=== PATIENT | female | born 1940 | race Caucasian/White ===

== ENCOUNTER 2016-11-21 04:31 | Inpatient (IN) ==
[2016-11-21] MEDS ORDERED: methylPREDNISolone 125 MG/2 ML VIAL ONE (04:35)
[2016-11-21] MEDS ORDERED: Ipratropium/Albuterol Neb 3 ML ONE (04:37)
[2016-11-21] MEDS ORDERED: Ipratropium/Albuterol Neb 3 ML IH ONE (04:38)
[2016-11-21] MEDS ORDERED: Nitroglycerin 25 MG/250 ML INFUS..BTL IVC ONE (04:38)
[2016-11-21] MEDS ORDERED: Furosemide 40 MG/4 ML VIAL IVP ONE (04:38)
[2016-11-21] MEDS ORDERED: Nitroglycerin 0.4 MG TAB.SUBL SL ONE (04:38)
[2016-11-21] MEDS ORDERED: methylPREDNISolone 125 MG/2 ML VIAL IVP ONE (04:38)
[2016-11-21] MEDS: Nitroglycerin 25 MG/250 ML INFUS..BTL IVC SCH (04:46)
[2016-11-21 04:53] LABS: Basophils # 0.1 K/mcL (0.0-0.2); Basophils % 0.6 %; Eosinophils # 1.3 K/mcL (0.0-0.6); Hematocrit 44.2 % (35.3-44.9); Hemoglobin 14.8 g/dL (11.5-15.4); Immature Granulocytes % 0.4 % (0-4); Lymphocytes # 10.4 K/mcL (0.6-4.6); Lymphocytes % 46.6 %; Mean Corpuscular HGB Conc 33.5 g/dL (31.6-35.5); Mean Corpuscular Hemoglobin 32.6 pg (28.0-33.3); Mean Corpuscular Volume 97.4 fL (83.0-100.0); Mean Platelet Volume 10.8 fL (9.4-12.4); Monocytes # 1.3 K/mcL (0.0-1.3); Monocytes % 5.8 %; Platelet Count 275 K/mcL (140-400); Red Blood Count 4.54 M/mcL (3.82-4.97); Red Cell Distribution Width 12.6 % (11.5-14.5); Segmented Neutrophils % 40.6 %
[2016-11-21 04:59] LABS: INR 1.1; Prothrombin Time 11.6 Seconds (9.4-12.1)
[2016-11-21 05:01] LABS: Activated Partial Thrombo Time 27.6 Seconds (26.0-36.0)
[2016-11-21 05:07] LABS: Calcium 9.4 mg/dL (8.6-10.8); Potassium 4.6 mEq/L (3.5-4.5)
[2016-11-21 05:24] LABS: ABG Base Excess -5.5 mEq/L (-2.0 to 3.0); ABG HCO3 21.6 mEQ/L (21-27); ABG Oxygen Saturation 100 % (95-98); ABG PCO2 47 mmHg (35-45); ABG PH 7.27 pH Units (7.32-7.45); ABG PO2 292 mmHg (85-104)
[2016-11-21 05:26] LABS: Blood Gas FiO2 40 %
[2016-11-21] MEDS ORDERED: Levofloxacin 750 MG/150 ML 750 MG/150 ML BAG IVPB ONE (05:26)
[2016-11-21] MEDS ORDERED: Vancomycin 1,000 MG in D5% in Water 250 ML IVPB ONE (05:26)
[2016-11-21] MEDS ORDERED: Piperacillin/Tazobactam 3.375 GM in D5% in Water (Mini-Bag+) 100 ML IVPB ONE (05:26)
--- NOTE | 2016-11-21 05:26 | Emergency Department Note ---
Disposition Clinical Impression: Pneumonia Qualifiers: Pneumonia type: due to unspecified organism Laterality: bilateral Lung location : lower lobe of lung Qualified Code(s): J18.9 - Pneumonia, unspecified organism Congestive heart failure Qualifiers: Congestive heart failure type: unspecified congestive heart failure type Congestive heart failure chronicity: acute on chronic Qualified Code(s): I50.9 - Heart failure, unspecified Disposition: Admitted As Inpatient Condition: Serious General Adult HPI - General Chief complaint: ED Shortness of Breath/Dyspnea Stated complaint: TYLER Time Seen by Provider: 11/21/16 04:49 Source: EMS Limitations: other Nursing Notes Reviewed: Yes Vital Signs Reviewed: Yes - History of Present Illness Pain Scale: 0 - Related Data Home Medications Medication Instructions Recorded Confirmed BuPROPion [Wellbutrin] 100 mg PO BID 09/20/15 11/21/16 Lisinopril [Zestril] 10 mg PO DAILY 09/20/15 11/21/16 Montelukast [Singulair] 10 mg PO HS 09/20/15 11/21/16 Ropinirole HCl [Requip] 2 mg PO TID 09/20/15 11/21/16 Simvastatin [Zocor] 20 mg PO HS 09/20/15 11/21/16 Albuterol Sulfate [Ventolin Hfa] 1 - 2 puff IH Q4-6H PRN 10/17/15 11/21/16 Oxygen 2 l NS AD 10/17/15 11/21/16 Loratadine [Claritin] 10 mg PO DAILY #0 10/27/15 11/21/16 Aspirin 81 mg PO DAILY 03/10/16 11/21/16 Cholecalciferol (D-3) [Vitamin D] 1,000 unit PO DAILY 03/10/16 11/21/16 Omeprazole [PriLOSEC] 40 mg PO DAILY 05/20/16 11/21/16 Budesonide/Formoterol 160/4.5 2 puff IH BIDR 11/21/16 11/21/16 [Symbicort 160/4.5] Previous Rx's Medication Instructions Recorded ClonazePAM [Klonopin] 0.25 mg PO BID #14 tablet 11/03/15 Ipratropium/Albuterol Neb [Duoneb] 3 ml IH [id number] #60 inhsol 11/03/15 Furosemide [Lasix] 20 mg PO DAILY #30 tablet 03/17/16 Potassium Chloride [K-Tab ER] 20 meq PO DAILY #30 tablet.er 03/17/16 Allergies Allergy/AdvReac Type Severity Reaction Status Date / Time No Known Allergies Allergy Verified 10/27/15 19:21 Past Medical History - Past Medical History Medical history: Reports: asthma, cancer, GERD, hyperlipidemia, hypertension Surgical history: Reports: , cholecystectomy, knee replacement, orthopedic, other, other Psychiatric history: Reports: anxiety, panic disorder - Social History Smoking Status: Never smoker Smokeless Tobacco Status: No Alcohol use: Reports: none Drug use: Reports: none Physical Exam - General Limitations: other General appearance: obese Course - Reevaluation(s) Reevaluation #1: Patient's granddaughter at bedside and patient is able to speak in full sentences at this time. Patient's granddaughter states that the patient has been diagnosed with CHF recently. The patient is stating she has been taking "fluid pills." She is unaware of the dose. She thinks that this is Lasix after I stated name. Her mentation is significantly improved at this time. She states that she is no longer short of breath. She is tolerating the BiPAP well at this time. She states if need be to be intubated that she would be okay with that as long as was a short-term ventilator stay. I discussed admission with them and they are agreeable. Patient has an elevated white blood cell count and a right sided lower pneumonia. We started her on triple antibiotic therapy. Patient meets sepsis criteria. We will not be giving her a fluid bolus due to her fluid status :overload. Time: 05:36 Vital Signs Temperature 99.0 F 11/21/16 04:33 Pulse Rate 118 11/21/16 04:33 Respiratory Rate 30 11/21/16 04:33 Blood Pressure 176/116 11/21/16 04:33 O2 Sat by Pulse Oximetry 96 11/21/16 04:33 Temperature 97.6 F 11/21/16 16:57 Pulse Rate 88 11/21/16 16:57 Respiratory Rate 16 11/21/16 16:57 Blood Pressure 118/71 11/21/16 16:57 O2 Sat by Pulse Oximetry 94 11/21/16 16:57 Oxygen Delivery Oxygen Delivery Bipap Medical Decision Making - Medical Records Medical records reviewed: Yes I reviewed the patient's medical records. - Lab Data Lab results reviewed: Yes I reviewed the patient's lab results. Result diagrams: 11/21/16 04:41 11/21/16 04:41 Lab Results 11/21/16 11/21/16 11/21/16 Range/Units 04:41 04:41 04:41 WBC 22.3 H (4.3-11.1) K/mcL RBC 4.54 (3.82-4.97) M/mcL Hgb 14.8 (11.5-15.4) g/dL Hct 44.2 (35.3-44.9) % MCV 97.4 (83.0-100.0) fL MCH 32.6 (28.0-33.3) pg MCHC 33.5 (31.6-35.5) g/dL RDW 12.6 (11.5-14.5) % Plt Count 275 (140-400) K/mcL MPV 10.8 (9.4-12.4) fL Immature Gran % 0.4 (0-4) % Seg Neutrophils % 40.6 % Lymphocytes % 46.6 % Monocytes % 5.8 % Eosinophils % 6.0 % Basophils % 0.6 % Neutrophils # 9.0 H (1.6-8.9) K/mcL Lymphocytes # 10.4 H (0.6-4.6) K/mcL Monocytes # 1.3 (0.0-1.3) K/mcL Eosinophils # 1.3 H (0.0-0.6) K/mcL Basophils # 0.1 (0.0-0.2) K/mcL PT 11.6 (9.4-12.1) Seconds INR 1.1 APTT 27.6 (26.0-36.0) Seconds ABG pH (7.32-7.45) pH Units ABG pCO2 (35-45) mmHg ABG pO2 (85-104) mmHg ABG HCO3 (21-27) mEQ/L ABG Total CO2 (20-26) mEq/L ABG O2 Saturation (95-98) % ABG Base Excess (-2.0 to 3.0) mEq/L Blood Gas Modality Inspired O2 % Sodium 138 (136-145) mEq/L Potassium 4.6 H (3.5-4.5) mEq/L Chloride 103 (98-109) mEq/L Carbon Dioxide 20 (19-29) mEq/L BUN 17 (7-20) mg/dL Creatinine 1.19 H (0.57-1.11) mg/dL Est GFR ( Amer) 53 L (> 60) Est GFR (Non-Af Amer) 44 L (> 60) BUN/Creatinine Ratio 14 (6-26) Glucose 268 H (70-99) mg/dL Calculated Osmolality 297 (280-300) Lactic Acid (0.5-2.2) mmol/L Calcium 9.4 (8.6-10.8) mg/dL Total Bilirubin 1.0 (0.2-1.2) mg/dL Direct Bilirubin 0.4 (0.0-0.5) mg/dL Indirect Bilirubin 0.6 (0.0-1.2) mg/dL AST 39 H (5-34) Units/L ALT 28 (0-55) Units/L Alkaline Phosphatase 95 (38-126) Units/L Troponin I (0-0.03) ng/mL B-Natriuretic Peptide (0-100) pg/mL Serum Total Protein 6.9 (6.0-8.3) g/dL Albumin 3.8 (3.5-5.0) g/dL Globulin 3.1 (2.4-3.5) g/dL Albumin/Globulin Ratio 1.2 (1.1-2.2) Urine Color (Yellow) Urine Clarity (Clear) Urine pH (5.0-8.0) pH Units Ur Specific [place] (1.010-1.025) Urine Protein (Neg-Trace) mg/dL Urine Glucose (UA) (Normal) mg/dL Urine Ketones (Negative) mg/dL Urine Blood (Negative) Urine Nitrite (Negative) Urine Bilirubin (Negative) Urine Urobilinogen (Normal) mg/dL Ur Leukocyte Esterase (Negative) Urine Microscopic RBC (0-3) per hpf Urine Microscopic WBC (0-3) per hpf Ur Squamous Epith Cells (None-Few) per lpf Urine Bacteria (None-Few) per hpf Hyaline Casts (None-Few) per lpf Ur Culture Indicated? (NO) 11/21/16 11/21/16 11/21/16 Range/Units 04:41 04:41 04:41 WBC (4.3-11.1) K/mcL RBC (3.82-4.97) M/mcL Hgb (11.5-15.4) g/dL Hct (35.3-44.9) % MCV (83.0-100.0) fL MCH (28.0-33.3) pg MCHC (31.6-35.5) g/dL RDW (11.5-14.5) % Plt Count (140-400) K/mcL MPV (9.4-12.4) fL Immature Gran % (0-4) % Seg Neutrophils % % Lymphocytes % % Monocytes % % Eosinophils % % Basophils % % Neutrophils # (1.6-8.9) K/mcL Lymphocytes # (0.6-4.6) K/mcL Monocytes # (0.0-1.3) K/mcL Eosinophils # (0.0-0.6) K/mcL Basophils # (0.0-0.2) K/mcL PT (9.4-12.1) Seconds INR APTT (26.0-36.0) Seconds ABG pH (7.32-7.45) pH Units ABG pCO2 (35-45) mmHg ABG pO2 (85-104) mmHg ABG HCO3 (21-27) mEQ/L ABG Total CO2 (20-26) mEq/L ABG O2 Saturation (95-98) % ABG Base Excess (-2.0 to 3.0) mEq/L Blood Gas Modality Inspired O2 % Sodium (136-145) mEq/L Potassium (3.5-4.5) mEq/L Chloride (98-109) mEq/L Carbon Dioxide (19-29) mEq/L BUN (7-20) mg/dL Creatinine (0.57-1.11) mg/dL Est GFR ( Amer) (> 60) Est GFR (Non-Af Amer) (> 60) BUN/Creatinine Ratio (6-26) Glucose (70-99) mg/dL Calculated Osmolality (280-300) Lactic Acid 5.6 H* (0.5-2.2) mmol/L Calcium (8.6-10.8) mg/dL Total Bilirubin (0.2-1.2) mg/dL Direct Bilirubin (0.0-0.5) mg/dL Indirect Bilirubin (0.0-1.2) mg/dL AST (5-34) Units/L ALT (0-55) Units/L Alkaline Phosphatase (38-126) Units/L Troponin I 0.00 (0-0.03) ng/mL B-Natriuretic Peptide 64 (0-100) pg/mL Serum Total Protein (6.0-8.3) g/dL Albumin (3.5-5.0) g/dL Globulin (2.4-3.5) g/dL Albumin/Globulin Ratio (1.1-2.2) Urine Color (Yellow) Urine Clarity (Clear) Urine pH (5.0-8.0) pH Units Ur Specific [place] (1.010-1.025) Urine Protein (Neg-Trace) mg/dL Urine Glucose (UA) (Normal) mg/dL Urine Ketones (Negative) mg/dL Urine Blood (Negative) Urine Nitrite (Negative) Urine Bilirubin (Negative) Urine Urobilinogen (Normal) mg/dL Ur Leukocyte Esterase (Negative) Urine Microscopic RBC (0-3) per hpf Urine Microscopic WBC (0-3) per hpf Ur Squamous Epith Cells (None-Few) per lpf Urine Bacteria (None-Few) per hpf Hyaline Casts (None-Few) per lpf Ur Culture Indicated? (NO) 11/21/16 11/21/16 11/21/16 Range/Units 05:15 05:40 07:28 WBC (4.3-11.1) K/mcL RBC (3.82-4.97) M/mcL Hgb (11.5-15.4) g/dL Hct (35.3-44.9) % MCV (83.0-100.0) fL MCH (28.0-33.3) pg MCHC (31.6-35.5) g/dL RDW (11.5-14.5) % Plt Count (140-400) K/mcL MPV (9.4-12.4) fL Immature Gran % (0-4) % Seg Neutrophils % % Lymphocytes % % Monocytes % % Eosinophils % % Basophils % % Neutrophils # (1.6-8.9) K/mcL Lymphocytes # (0.6-4.6) K/mcL Monocytes # (0.0-1.3) K/mcL Eosinophils # (0.0-0.6) K/mcL Basophils # (0.0-0.2) K/mcL PT (9.4-12.1) Seconds INR APTT (26.0-36.0) Seconds ABG pH 7.27 L (7.32-7.45) pH Units ABG pCO2 47 H (35-45) mmHg ABG pO2 292 H (85-104) mmHg ABG HCO3 21.6 (21-27) mEQ/L ABG Total CO2 23.0 (20-26) mEq/L ABG O2 Saturation 100 H (95-98) % ABG Base Excess -5.5 L (-2.0 to 3.0) mEq/L Blood Gas Modality BIPAP Inspired O2 40 % Sodium (136-145) mEq/L Potassium (3.5-4.5) mEq/L Chloride (98-109) mEq/L Carbon Dioxide (19-29) mEq/L BUN (7-20) mg/dL Creatinine (0.57-1.11) mg/dL Est GFR ( Amer) (> 60) Est GFR (Non-Af Amer) (> 60) BUN/Creatinine Ratio (6-26) Glucose (70-99) mg/dL Calculated Osmolality (280-300) Lactic Acid 1.4 (0.5-2.2) mmol/L Calcium (8.6-10.8) mg/dL Total Bilirubin (0.2-1.2) mg/dL Direct Bilirubin (0.0-0.5) mg/dL Indirect Bilirubin (0.0-1.2) mg/dL AST (5-34) Units/L ALT (0-55) Units/L Alkaline Phosphatase (38-126) Units/L Troponin I (0-0.03) ng/mL B-Natriuretic Peptide (0-100) pg/mL Serum Total Protein (6.0-8.3) g/dL Albumin (3.5-5.0) g/dL Globulin (2.4-3.5) g/dL Albumin/Globulin Ratio (1.1-2.2) Urine Color Yellow (Yellow) Urine Clarity Clear (Clear) Urine pH 6.0 (5.0-8.0) pH Units Ur Specific [place] 1.019 (1.010-1.025) Urine Protein 30 H (Neg-Trace) mg/dL Urine Glucose (UA) Normal (Normal) mg/dL Urine Ketones Negative (Negative) mg/dL Urine Blood Negative (Negative) Urine Nitrite Negative (Negative) Urine Bilirubin Negative (Negative) Urine Urobilinogen Normal (Normal) mg/dL Ur Leukocyte Esterase Negative (Negative) Urine Microscopic RBC 0-3 (0-3) per hpf Urine Microscopic WBC 0-3 (0-3) per hpf Ur Squamous Epith Cells Many H (None-Few) per lpf Urine Bacteria None Seen (None-Few) per hpf Hyaline Casts None Seen (None-Few) per lpf Ur Culture Indicated? NO (NO) 11/21/16 Range/Units 10:06 WBC (4.3-11.1) K/mcL RBC (3.82-4.97) M/mcL Hgb (11.5-15.4) g/dL Hct (35.3-44.9) % MCV (83.0-100.0) fL MCH (28.0-33.3) pg MCHC (31.6-35.5) g/dL RDW (11.5-14.5) % Plt Count (140-400) K/mcL MPV (9.4-12.4) fL Immature Gran % (0-4) % Seg Neutrophils % % Lymphocytes % % Monocytes % % Eosinophils % % Basophils % % Neutrophils # (1.6-8.9) K/mcL Lymphocytes # (0.6-4.6) K/mcL Monocytes # (0.0-1.3) K/mcL Eosinophils # (0.0-0.6) K/mcL Basophils # (0.0-0.2) K/mcL PT (9.4-12.1) Seconds INR APTT (26.0-36.0) Seconds ABG pH (7.32-7.45) pH Units ABG pCO2 (35-45) mmHg ABG pO2 (85-104) mmHg ABG HCO3 (21-27) mEQ/L ABG Total CO2 (20-26) mEq/L ABG O2 Saturation (95-98) % ABG Base Excess (-2.0 to 3.0) mEq/L Blood Gas Modality Inspired O2 % Sodium (136-145) mEq/L Potassium (3.5-4.5) mEq/L Chloride (98-109) mEq/L Carbon Dioxide (19-29) mEq/L BUN (7-20) mg/dL Creatinine (0.57-1.11) mg/dL Est GFR ( Amer) (> 60) Est GFR (Non-Af Amer) (> 60) BUN/Creatinine Ratio (6-26) Glucose (70-99) mg/dL Calculated Osmolality (280-300) Lactic Acid 1.7 (0.5-2.2) mmol/L Calcium (8.6-10.8) mg/dL Total Bilirubin (0.2-1.2) mg/dL Direct Bilirubin (0.0-0.5) mg/dL Indirect Bilirubin (0.0-1.2) mg/dL AST (5-34) Units/L ALT (0-55) Units/L Alkaline Phosphatase (38-126) Units/L Troponin I (0-0.03) ng/mL B-Natriuretic Peptide (0-100) pg/mL Serum Total Protein (6.0-8.3) g/dL Albumin (3.5-5.0) g/dL Globulin (2.4-3.5) g/dL Albumin/Globulin Ratio (1.1-2.2) Urine Color (Yellow) Urine Clarity (Clear) Urine pH (5.0-8.0) pH Units Ur Specific [place] (1.010-1.025) Urine Protein (Neg-Trace) mg/dL Urine Glucose (UA) (Normal) mg/dL Urine Ketones (Negative) mg/dL Urine Blood (Negative) Urine Nitrite (Negative) Urine Bilirubin (Negative) Urine Urobilinogen (Normal) mg/dL Ur Leukocyte Esterase (Negative) Urine Microscopic RBC (0-3) per hpf Urine Microscopic WBC (0-3) per hpf Ur Squamous Epith Cells (None-Few) per lpf Urine Bacteria (None-Few) per hpf Hyaline Casts (None-Few) per lpf Ur Culture Indicated? (NO) - Radiology Data Radiology results reviewed: Yes I reviewed the patient's radiology results. Chest X-Ray 11/21/16 04:38 IMPRESSION: Patchy parahilar airspace disease greater on the right. Given the normal heart size, this could represent early central pneumonia. Follow-up is recommended D/ / Dilan Workman MD / Dilan Workman MD Interpreting Provider: Dilan Workman MD - EKG Data EKG #1 EKG attestation: Yes I reviewed and interpreted this EKG. EKG results narrative: Normal sinus rhythm at a rate of 117. PA interval was not measured. Castration is 89. QT is 420. QTC is 49. Poor EKG tracing however does not appear to have signs of ischemia.
[2016-11-21 05:52] LABS: Bilirubin,Urine Negative (Negative); Blood,Urine Negative (Negative); Clarity,Urine Clear (Clear); Color,Urine Yellow (Yellow); Glucose,Urine (UA) Normal (Normal); Ketones,Urine Negative (Negative); Leukocyte Esterase,Urine Negative (Negative); Nitrite,Urine Negative (Negative); Protein,Urine 30 mg/dL (Neg-Trace); Specific Gravity,Urine 1.019 (1.010-1.025); Urobilinogen,Urine Normal (Normal)
[2016-11-21 05:54] LABS: Bacteria,Urine None Seen per hpf (None-Few); Hyaline Casts,Urine None Seen per lpf (None-Few); RBC,Urine 0-3 per hpf (0-3); Squamous Epithelial Cell,Urine Many per lpf (None-Few); WBC,Urine 0-3 per hpf (0-3)
--- NOTE | 2016-11-21 06:49 | Emergency Department Note ---
Disposition Clinical Impression: Pneumonia Qualifiers: Pneumonia type: due to unspecified organism Laterality: right Lung location: lower lobe of lung Qualified Code(s): J18.1 - Lobar pneumonia, unspecified organism Congestive heart failure Qualifiers: Congestive heart failure type: unspecified congestive heart failure type Congestive heart failure chronicity: acute on chronic Qualified Code(s): I50.9 - Heart failure, unspecified Disposition: Admitted As Inpatient Condition: Serious Referrals: Unassigned,Provider [Non-Partnered Physician] - Forms: ED Satisfaction Letter Time of Disposition: 06:53 General Adult HPI - General Chief complaint: ED Shortness of Breath/Dyspnea Stated complaint: TYLER Time Seen by Provider: 11/21/16 04:49 Source: EMS Limitations: other Nursing Notes Reviewed: Yes Vital Signs Reviewed: Yes - History of Present Illness HPI Narrative: Patient brought in by EMS. She is in severe respiratory distress. She is receiving an albuterol treatment at this time. EMS advises that they were called to the house for responsive female. She was found be in respiratory distress with pulse ox reading in the 40s. They stated they put her on a nonrebreather despite up to the 90s however her mentation did not get any better. She was responsive but just grunting. They gave her an albuterol treatment and arrived at the hospital. Pain Scale: 0 - Related Data Home Medications Medication Instructions Recorded Confirmed Albuterol Neb [Proventil Neb] 2.5 mg IH BID MDD bid & prn 09/20/15 05/20/16 BuPROPion [Wellbutrin] 100 mg PO BID 09/20/15 05/20/16 Lisinopril [Zestril] 10 mg PO DAILY 09/20/15 05/20/16 Montelukast [Singulair] 10 mg PO HS 09/20/15 05/20/16 Ropinirole HCl [Requip] 2 mg PO TID 09/20/15 05/20/16 Simvastatin [Zocor] 20 mg PO HS 09/20/15 05/20/16 Albuterol Sulfate [Ventolin Hfa] 1 - 2 puff IH Q4-6H PRN 10/17/15 05/20/16 Mometasone/Formoterol [Dulera 200 2 puff IH BID #0 10/17/15 05/20/16 Mcg/5 Mcg Inhaler] Oxygen 2 l NS AD 10/17/15 05/20/16 Loratadine [Claritin] 10 mg PO DAILY #0 10/27/15 05/20/16 Aspirin 81 mg PO DAILY 03/10/16 05/20/16 Cholecalciferol (D-3) [Vitamin D] 1,000 unit PO DAILY 03/10/16 05/20/16 Fluticasone Propionate Nasal 1 spray NS DAILY PRN 03/10/16 05/20/16 [Flonase] GuaiFENesin ER [Mucinex] 600 mg PO BID PRN 03/10/16 05/20/16 Omeprazole [PriLOSEC] 20 mg PO DAILY 05/20/16 05/20/16 Previous Rx's Medication Instructions Recorded ClonazePAM [Klonopin] 0.25 mg PO BID #14 tablet 11/03/15 Ipratropium/Albuterol Neb [Duoneb] 3 ml IH P5PGVMR #60 inhsol 11/03/15 Furosemide [Lasix] 20 mg PO DAILY #30 tablet 03/17/16 Potassium Chloride [K-Tab ER] 20 meq PO DAILY #30 tablet.er 03/17/16 MethylPREDNISolone [Medrol] 4 mg PO DAILY #1 pack 05/23/16 GuaiFENesin/Dextromethorphan 5 ml PO Q6HR PRN #1 syrup 10/03/16 [Robitussin/DM] LORazepam [Ativan] 1 mg PO BID PRN #8 tablet 10/03/16 PredniSONE 40 mg PO DAILY #6 tablet 10/03/16 Allergies Allergy/AdvReac Type Severity Reaction Status Date / Time No Known Allergies Allergy Verified 10/27/15 19:21 Limitations: ROS unobtainable due to patients medical condition Past Medical History - Past Medical History Medical history: Reports: asthma, cancer, GERD, hyperlipidemia, hypertension Surgical history: Reports: , cholecystectomy, knee replacement, orthopedic, other, other Psychiatric history: Reports: anxiety, panic disorder - Social History Smoking Status: Never smoker Smokeless Tobacco Status: No Alcohol use: Reports: none Drug use: Reports: none Physical Exam - General Limitations: other General appearance: in distress (Significant respiratory distress), obese - Eye Eye exam: Present: normal appearance, PERRL, EOMI. Absent: scleral icterus, conjunctival injection - ENT ENT exam: normal exam, normal oropharynx, mucous membranes moist - Neck Neck exam: Present: trachea midline, other (JVD.). Absent: meningismus, lymphadenopathy - Chest Chest inspection: Present: normal inspection, symmetric chest wall rise - Respiratory Respiratory exam: Present: respiratory distress (Severe), wheezes (Diffusely), other (Rales right lower lobe.) - Cardiovascular Cardiovascular exam: Present: tachycardia, normal heart sounds - Abdominal Exam Abdominal exam: Present: soft, Non-Tender, normal bowel sounds - Extremities Exam Extremities exam: Present: normal inspection, full ROM, normal capillary refill. Absent: pedal edema - Neurological Exam Neurological exam: Present: alert, other (Unable to speak due to severe respiratory distress. but is able to make eye contact.) - Skin Skin exam: Present: warm, dry, diaphoresis. Absent: rash, cyanosis Course Course Narrative: Female patient brought in by EMS in severe respiratory distress. She was getting a albuterol treatment whenever she came in. She is diaphoretic with JVD. I do not appreciate any edema in any of her extremities. Her lung sounds or wheezing throughout. Very tight. She does have boils in her right lower lobes. Patient is placed on BiPAP IVs were started blood was drawn patient was given a sublingual nitroglycerin and started on a nitroglycerin drip. We have given patient solu Medrol 125. We have given a triple DuoNeb and line through the BiPAP. BiPAP has significantly open patient's lung travis. Patient's mentation is poor. She is able to look at you however she is just grunting. Her heart tones are normal. Abdomen is soft on exam with normal bowel sounds. We will get a cardiac workup on patient. We will be admitting patient. Vital Signs Temperature 99.0 F 11/21/16 04:33 Pulse Rate 118 11/21/16 04:33 Respiratory Rate 30 11/21/16 04:33 Blood Pressure 176/116 11/21/16 04:33 O2 Sat by Pulse Oximetry 96 11/21/16 04:33 Temperature 99.0 F 11/21/16 04:33 Pulse Rate 95 11/21/16 06:08 Respiratory Rate 20 11/21/16 06:08 Blood Pressure 101/63 11/21/16 06:08 O2 Sat by Pulse Oximetry 97 11/21/16 06:08 Oxygen Delivery Oxygen Delivery Bipap Medical Decision Making - Lab Data Result diagrams: 11/21/16 04:41 11/21/16 04:41 Lab Results 11/21/16 11/21/16 11/21/16 Range/Units 04:41 04:41 04:41 WBC 22.3 H (4.3-11.1) K/mcL RBC 4.54 (3.82-4.97) M/mcL Hgb 14.8 (11.5-15.4) g/dL Hct 44.2 (35.3-44.9) % MCV 97.4 (83.0-100.0) fL MCH 32.6 (28.0-33.3) pg MCHC 33.5 (31.6-35.5) g/dL RDW 12.6 (11.5-14.5) % Plt Count 275 (140-400) K/mcL MPV 10.8 (9.4-12.4) fL Immature Gran % 0.4 (0-4) % Seg Neutrophils % 40.6 % Lymphocytes % 46.6 % Monocytes % 5.8 % Eosinophils % 6.0 % Basophils % 0.6 % Neutrophils # 9.0 H (1.6-8.9) K/mcL Lymphocytes # 10.4 H (0.6-4.6) K/mcL Monocytes # 1.3 (0.0-1.3) K/mcL Eosinophils # 1.3 H (0.0-0.6) K/mcL Basophils # 0.1 (0.0-0.2) K/mcL PT 11.6 (9.4-12.1) Seconds INR 1.1 APTT 27.6 (26.0-36.0) Seconds ABG pH (7.32-7.45) pH Units ABG pCO2 (35-45) mmHg ABG pO2 (85-104) mmHg ABG HCO3 (21-27) mEQ/L ABG Total CO2 (20-26) mEq/L ABG O2 Saturation (95-98) % ABG Base Excess (-2.0 to 3.0) mEq/L Blood Gas Modality Inspired O2 % Sodium 138 (136-145) mEq/L Potassium 4.6 H (3.5-4.5) mEq/L Chloride 103 (98-109) mEq/L Carbon Dioxide 20 (19-29) mEq/L BUN 17 (7-20) mg/dL Creatinine 1.19 H (0.57-1.11) mg/dL Est GFR ( Amer) 53 L (> 60) Est GFR (Non-Af Amer) 44 L (> 60) BUN/Creatinine Ratio 14 (6-26) Glucose 268 H (70-99) mg/dL Calculated Osmolality 297 (280-300) Lactic Acid (0.5-2.2) mmol/L Calcium 9.4 (8.6-10.8) mg/dL Troponin I (0-0.03) ng/mL B-Natriuretic Peptide (0-100) pg/mL Urine Color (Yellow) Urine Clarity (Clear) Urine pH (5.0-8.0) pH Units Ur Specific [place] (1.010-1.025) Urine Protein (Neg-Trace) mg/dL Urine Glucose (UA) (Normal) mg/dL Urine Ketones (Negative) mg/dL Urine Blood (Negative) Urine Nitrite (Negative) Urine Bilirubin (Negative) Urine Urobilinogen (Normal) mg/dL Ur Leukocyte Esterase (Negative) Urine Microscopic RBC (0-3) per hpf Urine Microscopic WBC (0-3) per hpf Ur Squamous Epith Cells (None-Few) per lpf Urine Bacteria (None-Few) per hpf Hyaline Casts (None-Few) per lpf Ur Culture Indicated? (NO) 11/21/16 11/21/16 11/21/16 Range/Units 04:41 04:41 04:41 WBC (4.3-11.1) K/mcL RBC (3.82-4.97) M/mcL Hgb (11.5-15.4) g/dL Hct (35.3-44.9) % MCV (83.0-100.0) fL MCH (28.0-33.3) pg MCHC (31.6-35.5) g/dL RDW (11.5-14.5) % Plt Count (140-400) K/mcL MPV (9.4-12.4) fL Immature Gran % (0-4) % Seg Neutrophils % % Lymphocytes % % Monocytes % % Eosinophils % % Basophils % % Neutrophils # (1.6-8.9) K/mcL Lymphocytes # (0.6-4.6) K/mcL Monocytes # (0.0-1.3) K/mcL Eosinophils # (0.0-0.6) K/mcL Basophils # (0.0-0.2) K/mcL PT (9.4-12.1) Seconds INR APTT (26.0-36.0) Seconds ABG pH (7.32-7.45) pH Units ABG pCO2 (35-45) mmHg ABG pO2 (85-104) mmHg ABG HCO3 (21-27) mEQ/L ABG Total CO2 (20-26) mEq/L ABG O2 Saturation (95-98) % ABG Base Excess (-2.0 to 3.0) mEq/L Blood Gas Modality Inspired O2 % Sodium (136-145) mEq/L Potassium (3.5-4.5) mEq/L Chloride (98-109) mEq/L Carbon Dioxide (19-29) mEq/L BUN (7-20) mg/dL Creatinine (0.57-1.11) mg/dL Est GFR ( Amer) (> 60) Est GFR (Non-Af Amer) (> 60) BUN/Creatinine Ratio (6-26) Glucose (70-99) mg/dL Calculated Osmolality (280-300) Lactic Acid 5.6 H* (0.5-2.2) mmol/L Calcium (8.6-10.8) mg/dL Troponin I 0.00 (0-0.03) ng/mL B-Natriuretic Peptide 64 (0-100) pg/mL Urine Color (Yellow) Urine Clarity (Clear) Urine pH (5.0-8.0) pH Units Ur Specific [place] (1.010-1.025) Urine Protein (Neg-Trace) mg/dL Urine Glucose (UA) (Normal) mg/dL Urine Ketones (Negative) mg/dL Urine Blood (Negative) Urine Nitrite (Negative) Urine Bilirubin (Negative) Urine Urobilinogen (Normal) mg/dL Ur Leukocyte Esterase (Negative) Urine Microscopic RBC (0-3) per hpf Urine Microscopic WBC (0-3) per hpf Ur Squamous Epith Cells (None-Few) per lpf Urine Bacteria (None-Few) per hpf Hyaline Casts (None-Few) per lpf Ur Culture Indicated? (NO) 11/21/16 11/21/16 Range/Units 05:15 05:40 WBC (4.3-11.1) K/mcL RBC (3.82-4.97) M/mcL Hgb (11.5-15.4) g/dL Hct (35.3-44.9) % MCV (83.0-100.0) fL MCH (28.0-33.3) pg MCHC (31.6-35.5) g/dL RDW (11.5-14.5) % Plt Count (140-400) K/mcL MPV (9.4-12.4) fL Immature Gran % (0-4) % Seg Neutrophils % % Lymphocytes % % Monocytes % % Eosinophils % % Basophils % % Neutrophils # (1.6-8.9) K/mcL Lymphocytes # (0.6-4.6) K/mcL Monocytes # (0.0-1.3) K/mcL Eosinophils # (0.0-0.6) K/mcL Basophils # (0.0-0.2) K/mcL PT (9.4-12.1) Seconds INR APTT (26.0-36.0) Seconds ABG pH 7.27 L (7.32-7.45) pH Units ABG pCO2 47 H (35-45) mmHg ABG pO2 292 H (85-104) mmHg ABG HCO3 21.6 (21-27) mEQ/L ABG Total CO2 23.0 (20-26) mEq/L ABG O2 Saturation 100 H (95-98) % ABG Base Excess -5.5 L (-2.0 to 3.0) mEq/L Blood Gas Modality BIPAP Inspired O2 40 % Sodium (136-145) mEq/L Potassium (3.5-4.5) mEq/L Chloride (98-109) mEq/L Carbon Dioxide (19-29) mEq/L BUN (7-20) mg/dL Creatinine (0.57-1.11) mg/dL Est GFR ( Amer) (> 60) Est GFR (Non-Af Amer) (> 60) BUN/Creatinine Ratio (6-26) Glucose (70-99) mg/dL Calculated Osmolality (280-300) Lactic Acid (0.5-2.2) mmol/L Calcium (8.6-10.8) mg/dL Troponin I (0-0.03) ng/mL B-Natriuretic Peptide (0-100) pg/mL Urine Color Yellow (Yellow) Urine Clarity Clear (Clear) Urine pH 6.0 (5.0-8.0) pH Units Ur Specific [place] 1.019 (1.010-1.025) Urine Protein 30 H (Neg-Trace) mg/dL Urine Glucose (UA) Normal (Normal) mg/dL Urine Ketones Negative (Negative) mg/dL Urine Blood Negative (Negative) Urine Nitrite Negative (Negative) Urine Bilirubin Negative (Negative) Urine Urobilinogen Normal (Normal) mg/dL Ur Leukocyte Esterase Negative (Negative) Urine Microscopic RBC 0-3 (0-3) per hpf Urine Microscopic WBC 0-3 (0-3) per hpf Ur Squamous Epith Cells Many H (None-Few) per lpf Urine Bacteria None Seen (None-Few) per hpf Hyaline Casts None Seen (None-Few) per lpf Ur Culture Indicated? NO (NO) Attestation Statement - Attestation Attestation: I examined this patient and my medical decision-making was reviewed with the FURNACE CHARGER/PA/Advanced Practice Nurse/Resident Physician. I agree with the documented findings, disposition and treatment plan as described except to the extent set forth below. Patient emergency department with difficulty breathing. Patient had a life alert button and was not in respiratory distress by medics. On examination she is an extremist. Labored breathing. Unable to speak. Grunting. Lungs with diffuse expiratory wheezing. Plan. Patient was some JVD. Lungs with diffuse wheezing. After nebs the patient has audible rales as well. Chest x-ray appears to have fluid overload and infiltrate. White count elevated. She is treated for pneumonia. Her symptoms improved after BiPAP and nitroglycerin. Patient will be admitted to medicine. 35 minutes of critical care exclusive of separately billable procedures.
--- NOTE | 2016-11-21 07:21 | Emergency Department Note ---
Disposition Clinical Impression: Pneumonia Qualifiers: Pneumonia type: due to unspecified organism Laterality: bilateral Lung location : lower lobe of lung Qualified Code(s): J18.9 - Pneumonia, unspecified organism Congestive heart failure Qualifiers: Congestive heart failure type: unspecified congestive heart failure type Congestive heart failure chronicity: acute on chronic Qualified Code(s): I50.9 - Heart failure, unspecified Disposition: Admitted As Inpatient Condition: Serious General Adult HPI - General Chief complaint: ED Shortness of Breath/Dyspnea Stated complaint: TYLER Time Seen by Provider: 11/21/16 04:49 Source: EMS Limitations: other - History of Present Illness Pain Scale: 0 - Related Data Home Medications Medication Instructions Recorded Confirmed BuPROPion [Wellbutrin] 100 mg PO BID 09/20/15 11/21/16 Lisinopril [Zestril] 10 mg PO DAILY 09/20/15 11/21/16 Montelukast [Singulair] 10 mg PO HS 09/20/15 11/21/16 Ropinirole HCl [Requip] 2 mg PO TID 09/20/15 11/21/16 Simvastatin [Zocor] 20 mg PO HS 09/20/15 11/21/16 Albuterol Sulfate [Ventolin Hfa] 1 - 2 puff IH Q4-6H PRN 10/17/15 11/21/16 Oxygen 2 l NS AD 10/17/15 11/21/16 Loratadine [Claritin] 10 mg PO DAILY #0 10/27/15 11/21/16 Aspirin 81 mg PO DAILY 03/10/16 11/21/16 Cholecalciferol (D-3) [Vitamin D] 1,000 unit PO DAILY 03/10/16 11/21/16 Omeprazole [PriLOSEC] 40 mg PO DAILY 05/20/16 11/21/16 Budesonide/Formoterol 160/4.5 2 puff IH BIDR 11/21/16 11/21/16 [Symbicort 160/4.5] Previous Rx's Medication Instructions Recorded ClonazePAM [Klonopin] 0.25 mg PO BID #14 tablet 11/03/15 Ipratropium/Albuterol Neb [Duoneb] 3 ml IH [id number] #60 inhsol 11/03/15 Furosemide [Lasix] 20 mg PO DAILY #30 tablet 03/17/16 Potassium Chloride [K-Tab ER] 20 meq PO DAILY #30 tablet.er 03/17/16 Allergies Allergy/AdvReac Type Severity Reaction Status Date / Time No Known Allergies Allergy Verified 10/27/15 19:21 Constitutional: Reports: fever Past Medical History - Past Medical History Medical history: Reports: asthma, cancer, GERD, hyperlipidemia, hypertension Surgical history: Reports: , cholecystectomy, knee replacement, orthopedic, other, other Psychiatric history: Reports: anxiety, panic disorder - Social History Smoking Status: Never smoker Smokeless Tobacco Status: No Alcohol use: Reports: none Drug use: Reports: none Physical Exam - General Limitations: other General appearance: in distress (Significant respiratory distress), obese Course Course Narrative: Patient accepted as signout from the nighttime team. 76-year-old female that came in with a severe CHF exacerbation. Initially hypoxic and confused. Started on nitroglycerin drip, BiPAP, Lasix. Also given 3 duo nebs and Solu- Medrol. SHe is now significantly turned around. She is now speaking in full sentences and is alert and oriented 3. Initially he also has a lactic acidosis associated with a possible right lower lobe pneumonia. Started on triple antibiotic therapy. We did not give her the 30 mL/kg fluid bolus due to her severe CHF exacerbation and this would be detrimental to the patient more so than beneficial. My exam now, she is on BiPAP, resting comfortably, able to speak in full sentences, alert and oriented 3. She still has a few wheezes and trace rails and her dependent lung areas. Her heart is regular rate and rhythm. Abdomen is soft, nontender, nondistended. No guarding or rebound. She does have peripheral pedal edema. Cap refill is less than 3 seconds. She was accepted by the hospitalist for admission. Vital Signs Temperature 99.0 F 11/21/16 04:33 Pulse Rate 118 11/21/16 04:33 Respiratory Rate 30 11/21/16 04:33 Blood Pressure 176/116 11/21/16 04:33 O2 Sat by Pulse Oximetry 96 11/21/16 04:33 Temperature 98.1 F 11/22/16 07:58 Pulse Rate 81 11/22/16 07:58 Respiratory Rate 16 11/22/16 07:58 Blood Pressure 133/54 11/22/16 07:58 O2 Sat by Pulse Oximetry 96 11/22/16 07:58 Oxygen Delivery Oxygen Delivery Bipap Medical Decision Making - Lab Data Result diagrams: 11/22/16 05:22 11/22/16 05:22 Lab Results 11/21/16 11/21/16 11/21/16 Range/Units 04:41 04:41 04:41 WBC 22.3 H (4.3-11.1) K/mcL RBC 4.54 (3.82-4.97) M/mcL Hgb 14.8 (11.5-15.4) g/dL Hct 44.2 (35.3-44.9) % MCV 97.4 (83.0-100.0) fL MCH 32.6 (28.0-33.3) pg MCHC 33.5 (31.6-35.5) g/dL RDW 12.6 (11.5-14.5) % Plt Count 275 (140-400) K/mcL MPV 10.8 (9.4-12.4) fL Immature Gran % 0.4 (0-4) % Seg Neutrophils % 40.6 % Lymphocytes % 46.6 % Monocytes % 5.8 % Eosinophils % 6.0 % Basophils % 0.6 % Neutrophils # 9.0 H (1.6-8.9) K/mcL Lymphocytes # 10.4 H (0.6-4.6) K/mcL Monocytes # 1.3 (0.0-1.3) K/mcL Eosinophils # 1.3 H (0.0-0.6) K/mcL Basophils # 0.1 (0.0-0.2) K/mcL PT 11.6 (9.4-12.1) Seconds INR 1.1 APTT 27.6 (26.0-36.0) Seconds ABG pH (7.32-7.45) pH Units ABG pCO2 (35-45) mmHg ABG pO2 (85-104) mmHg ABG HCO3 (21-27) mEQ/L ABG Total CO2 (20-26) mEq/L ABG O2 Saturation (95-98) % ABG Base Excess (-2.0 to 3.0) mEq/L Blood Gas Modality Inspired O2 % Sodium 138 (136-145) mEq/L Potassium 4.6 H (3.5-4.5) mEq/L Chloride 103 (98-109) mEq/L Carbon Dioxide 20 (19-29) mEq/L BUN 17 (7-20) mg/dL Creatinine 1.19 H (0.57-1.11) mg/dL Est GFR ( Amer) 53 L (> 60) Est GFR (Non-Af Amer) 44 L (> 60) BUN/Creatinine Ratio 14 (6-26) Glucose 268 H (70-99) mg/dL Calculated Osmolality 297 (280-300) Lactic Acid (0.5-2.2) mmol/L Calcium 9.4 (8.6-10.8) mg/dL Total Bilirubin 1.0 (0.2-1.2) mg/dL Direct Bilirubin 0.4 (0.0-0.5) mg/dL Indirect Bilirubin 0.6 (0.0-1.2) mg/dL AST 39 H (5-34) Units/L ALT 28 (0-55) Units/L Alkaline Phosphatase 95 (38-126) Units/L Troponin I (0-0.03) ng/mL B-Natriuretic Peptide (0-100) pg/mL Serum Total Protein 6.9 (6.0-8.3) g/dL Albumin 3.8 (3.5-5.0) g/dL Globulin 3.1 (2.4-3.5) g/dL Albumin/Globulin Ratio 1.2 (1.1-2.2) Urine Color (Yellow) Urine Clarity (Clear) Urine pH (5.0-8.0) pH Units Ur Specific [place] (1.010-1.025) Urine Protein (Neg-Trace) mg/dL Urine Glucose (UA) (Normal) mg/dL Urine Ketones (Negative) mg/dL Urine Blood (Negative) Urine Nitrite (Negative) Urine Bilirubin (Negative) Urine Urobilinogen (Normal) mg/dL Ur Leukocyte Esterase (Negative) Urine Microscopic RBC (0-3) per hpf Urine Microscopic WBC (0-3) per hpf Ur Squamous Epith Cells (None-Few) per lpf Urine Bacteria (None-Few) per hpf Hyaline Casts (None-Few) per lpf Ur Culture Indicated? (NO) 11/21/16 11/21/16 11/21/16 Range/Units 04:41 04:41 04:41 WBC (4.3-11.1) K/mcL RBC (3.82-4.97) M/mcL Hgb (11.5-15.4) g/dL Hct (35.3-44.9) % MCV (83.0-100.0) fL MCH (28.0-33.3) pg MCHC (31.6-35.5) g/dL RDW (11.5-14.5) % Plt Count (140-400) K/mcL MPV (9.4-12.4) fL Immature Gran % (0-4) % Seg Neutrophils % % Lymphocytes % % Monocytes % % Eosinophils % % Basophils % % Neutrophils # (1.6-8.9) K/mcL Lymphocytes # (0.6-4.6) K/mcL Monocytes # (0.0-1.3) K/mcL Eosinophils # (0.0-0.6) K/mcL Basophils # (0.0-0.2) K/mcL PT (9.4-12.1) Seconds INR APTT (26.0-36.0) Seconds ABG pH (7.32-7.45) pH Units ABG pCO2 (35-45) mmHg ABG pO2 (85-104) mmHg ABG HCO3 (21-27) mEQ/L ABG Total CO2 (20-26) mEq/L ABG O2 Saturation (95-98) % ABG Base Excess (-2.0 to 3.0) mEq/L Blood Gas Modality Inspired O2 % Sodium (136-145) mEq/L Potassium (3.5-4.5) mEq/L Chloride (98-109) mEq/L Carbon Dioxide (19-29) mEq/L BUN (7-20) mg/dL Creatinine (0.57-1.11) mg/dL Est GFR ( Amer) (> 60) Est GFR (Non-Af Amer) (> 60) BUN/Creatinine Ratio (6-26) Glucose (70-99) mg/dL Calculated Osmolality (280-300) Lactic Acid 5.6 H* (0.5-2.2) mmol/L Calcium (8.6-10.8) mg/dL Total Bilirubin (0.2-1.2) mg/dL Direct Bilirubin (0.0-0.5) mg/dL Indirect Bilirubin (0.0-1.2) mg/dL AST (5-34) Units/L ALT (0-55) Units/L Alkaline Phosphatase (38-126) Units/L Troponin I 0.00 (0-0.03) ng/mL B-Natriuretic Peptide 64 (0-100) pg/mL Serum Total Protein (6.0-8.3) g/dL Albumin (3.5-5.0) g/dL Globulin (2.4-3.5) g/dL Albumin/Globulin Ratio (1.1-2.2) Urine Color (Yellow) Urine Clarity (Clear) Urine pH (5.0-8.0) pH Units Ur Specific [place] (1.010-1.025) Urine Protein (Neg-Trace) mg/dL Urine Glucose (UA) (Normal) mg/dL Urine Ketones (Negative) mg/dL Urine Blood (Negative) Urine Nitrite (Negative) Urine Bilirubin (Negative) Urine Urobilinogen (Normal) mg/dL Ur Leukocyte Esterase (Negative) Urine Microscopic RBC (0-3) per hpf Urine Microscopic WBC (0-3) per hpf Ur Squamous Epith Cells (None-Few) per lpf Urine Bacteria (None-Few) per hpf Hyaline Casts (None-Few) per lpf Ur Culture Indicated? (NO) 11/21/16 11/21/16 11/21/16 Range/Units 05:15 05:40 07:28 WBC (4.3-11.1) K/mcL RBC (3.82-4.97) M/mcL Hgb (11.5-15.4) g/dL Hct (35.3-44.9) % MCV (83.0-100.0) fL MCH (28.0-33.3) pg MCHC (31.6-35.5) g/dL RDW (11.5-14.5) % Plt Count (140-400) K/mcL MPV (9.4-12.4) fL Immature Gran % (0-4) % Seg Neutrophils % % Lymphocytes % % Monocytes % % Eosinophils % % Basophils % % Neutrophils # (1.6-8.9) K/mcL Lymphocytes # (0.6-4.6) K/mcL Monocytes # (0.0-1.3) K/mcL Eosinophils # (0.0-0.6) K/mcL Basophils # (0.0-0.2) K/mcL PT (9.4-12.1) Seconds INR APTT (26.0-36.0) Seconds ABG pH 7.27 L (7.32-7.45) pH Units ABG pCO2 47 H (35-45) mmHg ABG pO2 292 H (85-104) mmHg ABG HCO3 21.6 (21-27) mEQ/L ABG Total CO2 23.0 (20-26) mEq/L ABG O2 Saturation 100 H (95-98) % ABG Base Excess -5.5 L (-2.0 to 3.0) mEq/L Blood Gas Modality BIPAP Inspired O2 40 % Sodium (136-145) mEq/L Potassium (3.5-4.5) mEq/L Chloride (98-109) mEq/L Carbon Dioxide (19-29) mEq/L BUN (7-20) mg/dL Creatinine (0.57-1.11) mg/dL Est GFR ( Amer) (> 60) Est GFR (Non-Af Amer) (> 60) BUN/Creatinine Ratio (6-26) Glucose (70-99) mg/dL Calculated Osmolality (280-300) Lactic Acid 1.4 (0.5-2.2) mmol/L Calcium (8.6-10.8) mg/dL Total Bilirubin (0.2-1.2) mg/dL Direct Bilirubin (0.0-0.5) mg/dL Indirect Bilirubin (0.0-1.2) mg/dL AST (5-34) Units/L ALT (0-55) Units/L Alkaline Phosphatase (38-126) Units/L Troponin I (0-0.03) ng/mL B-Natriuretic Peptide (0-100) pg/mL Serum Total Protein (6.0-8.3) g/dL Albumin (3.5-5.0) g/dL Globulin (2.4-3.5) g/dL Albumin/Globulin Ratio (1.1-2.2) Urine Color Yellow (Yellow) Urine Clarity Clear (Clear) Urine pH 6.0 (5.0-8.0) pH Units Ur Specific [place] 1.019 (1.010-1.025) Urine Protein 30 H (Neg-Trace) mg/dL Urine Glucose (UA) Normal (Normal) mg/dL Urine Ketones Negative (Negative) mg/dL Urine Blood Negative (Negative) Urine Nitrite Negative (Negative) Urine Bilirubin Negative (Negative) Urine Urobilinogen Normal (Normal) mg/dL Ur Leukocyte Esterase Negative (Negative) Urine Microscopic RBC 0-3 (0-3) per hpf Urine Microscopic WBC 0-3 (0-3) per hpf Ur Squamous Epith Cells Many H (None-Few) per lpf Urine Bacteria None Seen (None-Few) per hpf Hyaline Casts None Seen (None-Few) per lpf Ur Culture Indicated? NO (NO) 11/21/16 Range/Units 10:06 WBC (4.3-11.1) K/mcL RBC (3.82-4.97) M/mcL Hgb (11.5-15.4) g/dL Hct (35.3-44.9) % MCV (83.0-100.0) fL MCH (28.0-33.3) pg MCHC (31.6-35.5) g/dL RDW (11.5-14.5) % Plt Count (140-400) K/mcL MPV (9.4-12.4) fL Immature Gran % (0-4) % Seg Neutrophils % % Lymphocytes % % Monocytes % % Eosinophils % % Basophils % % Neutrophils # (1.6-8.9) K/mcL Lymphocytes # (0.6-4.6) K/mcL Monocytes # (0.0-1.3) K/mcL Eosinophils # (0.0-0.6) K/mcL Basophils # (0.0-0.2) K/mcL PT (9.4-12.1) Seconds INR APTT (26.0-36.0) Seconds ABG pH (7.32-7.45) pH Units ABG pCO2 (35-45) mmHg ABG pO2 (85-104) mmHg ABG HCO3 (21-27) mEQ/L ABG Total CO2 (20-26) mEq/L ABG O2 Saturation (95-98) % ABG Base Excess (-2.0 to 3.0) mEq/L Blood Gas Modality Inspired O2 % Sodium (136-145) mEq/L Potassium (3.5-4.5) mEq/L Chloride (98-109) mEq/L Carbon Dioxide (19-29) mEq/L BUN (7-20) mg/dL Creatinine (0.57-1.11) mg/dL Est GFR ( Amer) (> 60) Est GFR (Non-Af Amer) (> 60) BUN/Creatinine Ratio (6-26) Glucose (70-99) mg/dL Calculated Osmolality (280-300) Lactic Acid 1.7 (0.5-2.2) mmol/L Calcium (8.6-10.8) mg/dL Total Bilirubin (0.2-1.2) mg/dL Direct Bilirubin (0.0-0.5) mg/dL Indirect Bilirubin (0.0-1.2) mg/dL AST (5-34) Units/L ALT (0-55) Units/L Alkaline Phosphatase (38-126) Units/L Troponin I (0-0.03) ng/mL B-Natriuretic Peptide (0-100) pg/mL Serum Total Protein (6.0-8.3) g/dL Albumin (3.5-5.0) g/dL Globulin (2.4-3.5) g/dL Albumin/Globulin Ratio (1.1-2.2) Urine Color (Yellow) Urine Clarity (Clear) Urine pH (5.0-8.0) pH Units Ur Specific [place] (1.010-1.025) Urine Protein (Neg-Trace) mg/dL Urine Glucose (UA) (Normal) mg/dL Urine Ketones (Negative) mg/dL Urine Blood (Negative) Urine Nitrite (Negative) Urine Bilirubin (Negative) Urine Urobilinogen (Normal) mg/dL Ur Leukocyte Esterase (Negative) Urine Microscopic RBC (0-3) per hpf Urine Microscopic WBC (0-3) per hpf Ur Squamous Epith Cells (None-Few) per lpf Urine Bacteria (None-Few) per hpf Hyaline Casts (None-Few) per lpf Ur Culture Indicated? (NO) S.B.A.R. - S.B.A.R. Situation: Demographics, MOA Background: Presenting Complaint, Relevant PMH, Meds, & Allergies Assessment: Vital Signs, Course and respsone to treatment, Exam Concerns, Patient/Family Expectation, Pertinant Lab Results, Outstanding Labs Recommendation: Recommendation based on pending studies, treatments, or consults S.B.A.R. Report Given to: Dr. Walker Hart Repor Time: 07:21 Attestation Statement - Attestation Attestation: Patient was signed out to daytime staff at the end of fast food shift lead. Previous was seen by night attending. Report was called by resident physician to hospitals. I agree with resident physician assessment and plan.
[2016-11-21] MEDS ORDERED: *HR* Morphine 2 MG/ML SYRINGE IVP PRN (07:52)
[2016-11-21] MEDS ORDERED: Acetaminophen 325 MG TABLET PO PRN (07:52)
[2016-11-21] MEDS ORDERED: Naloxone 0.4 MG/ML INJ IVP PRN (07:52)
[2016-11-21] MEDS ORDERED: Ondansetron 4 MG/2 ML VIAL IVP PRN (07:52)
--- NOTE | 2016-11-21 08:05 | Internal Med History&Physical ---
Date of Encounter: 11/21/16 Time of Encounter: 08:02 Assessment and Plan (1) Severe sepsis Current visit: Yes Status: Acute Acute on chronic respiratory failure secondary to a combination of acute COPD exacerbation due to Possible septic shock secondary to community-acquired pneumonia, gram-negative pneumonia versus acute diastolic CHF exacerbation Strict I's and O's, Lasix IV 20 mg twice a day Repeat echocardiogram Continue Levaquin only, Solu-Medrol, DuoNeb nebs, BiPAP as needed Omeprazole for GI prophylaxis and Lovenox for DVT prophylaxis, admitted as inpatient, expected to stay more than 2 midnights. Full code. Time spent on this critical care assessment: 40 minutes. High risk due to respiratory failure (2) CAD (coronary artery disease) Current visit: No Status: Chronic Continue aspirin Qualifiers: Coronary Disease-Associated Artery/Lesion type: [place] artery [place] vs. transplanted heart: [place] heart Associated angina: without angina Qualified Code(s): I25.10 - Atherosclerotic heart disease of [place] coronary artery without angina pectoris (3) Acute on chronic respiratory failure Current visit: No Status: Acute Qualifiers: Respiratory failure complication: unspecified whether with hypoxia or hypercapnia Qualified Code(s): J96.20 - Acute and chronic respiratory failure , unspecified whether with hypoxia or hypercapnia (4) HTN (hypertension) Current visit: No Status: Acute Hold lisinopril for now May use hydralazine as needed Qualifiers: Hypertension type: essential hypertension Qualified Code(s): I10 - Essential (primary) hypertension (5) GERD (gastroesophageal reflux disease) Current visit: No Status: Acute Qualifiers: Esophagitis presence: esophagitis presence not specified Qualified Code(s) : K21.9 - Gastro-esophageal reflux disease without esophagitis (6) CHF exacerbation Current visit: No Status: Acute Qualifiers: Congestive heart failure type: diastolic Qualified Code(s): I50.33 - Acute on chronic diastolic (congestive) heart failure (7) NACHO (obstructive sleep apnea) Current visit: No Status: Acute (8) Pneumonia Current visit: Yes Status: Acute check pneumococcus and Legionella in urine Qualifiers: Pneumonia type: due to unspecified organism Laterality: bilateral Lung location: lower lobe of lung Qualified Code(s): J18.9 - Pneumonia, unspecified organism Internal Medicine - H&P: HPI Chief complaint: shortness of breath Admitted From: Emergency Dept History of present illness: Ms. Ga is a 76 year old female with a past medical history of diastolic CHF, chronic respiratory failure, CKD3 admitted to this hospital back on May 2016 was brought to the emergency room by EMS due to progressive difficulty breathing. According to the EMS documents the patient saturation of oxygen dropped to the 40s. Patient says that for the past 24 hours she has been feeling worse. Denies any sick contacts but has been bringing up yellowish phlegm on and off. The chest x-ray shows bilateral parahiliar opacities concerning for possible pneumonia. Done in the emergency room, she was given Levaquin, vancomycin, Zosyn, Lasix and nitroglycerin. The patient was started also on a BiPAP and is feeling better at the moment. Initially her blood pressure was in the 170s and then he dropped down to 99/59. Heart rate was 118 White blood cell count 22.3 creatinine has increased from 0.95 up to 1.19 lactic acid was 5.6. Patient is able to speak in full sentences at the moment. According to prior notes she used to have recurrent asthma exacerbations but she was told that actually her problem was coming from her vocal cords which is not exactly clear. Denies any fevers. Past Med Surg Social Fam HX - Past Medical History Medical history: asthma (vocal cord dysfunction), CHF (Diastolic), coronary artery disease (Nonobstructive), GERD, hyperlipidemia, hypertension, other ( Chronic respiratory failure using 2 L at home as needed, chronic kidney disease stage III, anxiety, obstructive sleep apnea using CPAP at home, no history of cancer) Psychiatric history: anxiety, panic disorder - Past Surgical History Surgical History: , cholecystectomy, knee replacement, orthopedic, other, other (Cardiac catheterization, carpal tunnel release surgery) - Social History Smoking Status: Never smoker Smokeless Tobacco Status: No Alcohol use: none Drug use: none - Family History Mother Living Status: Hx Family Cardiac Disorders: Yes Hx Family Respiratory Disorders: Yes Father Living Status: Hx Family Cardiac Disorders: Yes - Additional Family History Additional family history: Mother with CHF Internal Medicine - H&P: Meds Albuterol Neb [Proventil Neb] 2.5 mg IH BID MDD bid & prn 09/20/15 [History] BuPROPion [Wellbutrin] 100 mg PO BID 09/20/15 [History] Lisinopril [Zestril] 10 mg PO DAILY 09/20/15 [History] Montelukast [Singulair] 10 mg PO HS 09/20/15 [History] Ropinirole HCl [Requip] 2 mg PO TID 09/20/15 [History] Simvastatin [Zocor] 20 mg PO HS 09/20/15 [History] Albuterol Sulfate [Ventolin Hfa] 1 - 2 puff IH Q4-6H PRN 10/17/15 [History] Mometasone/Formoterol [Dulera 200 Mcg/5 Mcg Inhaler] 2 puff IH BID #0 10/17/15 [History] Oxygen 2 l NS AD 10/17/15 [History] Loratadine [Claritin] 10 mg PO DAILY #0 10/27/15 [History] ClonazePAM [Klonopin] 0.25 mg PO BID #14 tablet 11/03/15 [Rx] Ipratropium/Albuterol Neb [Duoneb] 3 ml IH [id number] #60 inhsol 11/03/15 [Rx] Aspirin 81 mg PO DAILY 03/10/16 [History] Cholecalciferol (D-3) [Vitamin D] 1,000 unit PO DAILY 03/10/16 [History] Fluticasone Propionate Nasal [Flonase] 1 spray NS DAILY PRN 03/10/16 [History] GuaiFENesin ER [Mucinex] 600 mg PO BID PRN 03/10/16 [History] Furosemide [Lasix] 20 mg PO DAILY #30 tablet 03/17/16 [Rx] Potassium Chloride [K-Tab ER] 20 meq PO DAILY #30 tablet.er 03/17/16 [Rx] Omeprazole [PriLOSEC] 20 mg PO DAILY 05/20/16 [History] MethylPREDNISolone [Medrol] 4 mg PO DAILY #1 pack 05/23/16 [Rx] GuaiFENesin/Dextromethorphan [Robitussin/DM] 5 ml PO Q6HR PRN #1 syrup 10/03/16 [Rx] LORazepam [Ativan] 1 mg PO BID PRN #8 tablet 10/03/16 [Rx] PredniSONE 40 mg PO DAILY #6 tablet 10/03/16 [Rx] Allergies No Known Allergies Allergy (Verified 10/27/15 19:21) All Systems PM: A 10-system review of systems was performed and is negative for pertinent findings except as documented above in the HPI. Feels less short of breath, very weak. - Constitutional Vitals: Temp Pulse Resp BP Pulse Ox 99.0 F 82 18 116/67 98 11/21/16 04:33 11/21/16 07:55 11/21/16 07:55 11/21/16 07:55 11/21/16 07:55 General appearance: Present: A&O X 3 (Wearing BiPAP mask) - Head Head exam: Present: atraumatic, normocephalic - Eye Eye exam: Present: PERRL, conjuntiva pink, sclera anicteric Pupils: Present: PERRL - Neck Neck exam general surgery: Present: supple, trachea midline. Absent: lymphadenopathy - Respiratory Respiratory exam: Present: CTAB, rales (Diffuse wheezing and crackles bilaterally), wheezes. Absent: accessory muscle use, rhonchi - Cardiovascular Cardiovascular exam: Present: RRR, +S1, +S2. Absent: diastolic murmur, gallop, rubs, systolic murmur - GI/Abdominal GI/Abdominal exam: Present: distended, normal bowel sounds, soft, no peritoneal signs. Absent: tenderness - Extremities Exam Extremities exam: Present: warm, radial pulses palpable and symetrical. Absent : calf tenderness, cyanotic, pedal edema - Neurological Exam Neurological exam: Present: CN II-XII intact, oriented X3, no focal deficits. Absent: pronater drift, facial droop, speech deficit - Skin Skin exam: Present: dry, intact Internal Med - H&P Results - Labs CBC & Chem 7: 11/21/16 04:41 11/21/16 04:41 Labs: Short CBC 11/21/16 Range/Units 04:41 WBC 22.3 H (4.3-11.1) K/mcL Hgb 14.8 (11.5-15.4) g/dL Hct 44.2 (35.3-44.9) % Plt Count 275 (140-400) K/mcL Neutrophils # 9.0 H (1.6-8.9) K/mcL BMP 11/21/16 04:41 Sodium 138 Potassium 4.6 H Chloride 103 Carbon Dioxide 20 BUN 17 Creatinine 1.19 H Glucose 268 H Calcium 9.4 Cardiac Enzymes 11/21/16 Range/Units 04:41 Troponin I 0.00 (0-0.03) ng/mL Urine 11/21/16 Range/Units 05:40 Urine Color Yellow (Yellow) Urine Clarity Clear (Clear) Urine pH 6.0 (5.0-8.0) pH Units Ur Specific [place] 1.019 (1.010-1.025) Urine Protein 30 H (Neg-Trace) mg/dL Urine Glucose (UA) Normal (Normal) mg/dL - ABG Interpretation ABG results: 11/21/16 05:15 ABG pH 7.27 L ABG pCO2 47 H ABG pO2 292 H ABG HCO3 21.6 ABG Total CO2 23.0 ABG O2 Saturation 100 H ABG Base Excess -5.5 L - Impressions ITS Impressions Chest X-Ray 11/21/16 04:38 IMPRESSION: Patchy parahilar airspace disease greater on the right. Given the normal heart size, this could represent early central pneumonia. Follow-up is recommended D/ / Dilan Workman MD / Dilan Workman MD Interpreting Provider: Dilan Workman MD
[2016-11-21 08:17] LABS: Albumin 3.8 g/dL (3.5-5.0); Albumin/Globulin Ratio 1.2 (1.1-2.2); Bilirubin,Direct 0.4 mg/dL (0.0-0.5); Bilirubin,Indirect 0.6 mg/dL (0.0-1.2); Globulin 3.1 g/dL (2.4-3.5); Total Protein 6.9 g/dL (6.0-8.3)
[2016-11-21] MEDS: Ipratropium/Albuterol Neb 3 ML IH SCH ×4 (08:47→23:06)
[2016-11-21] MEDS: rOPINIRole 1 MG TABLET PO SCH ×3 (10:39→21:53)
[2016-11-21] MEDS: clonazePAM 0.5 MG TABLET PO SCH ×2 (10:39→21:54)
[2016-11-21] MEDS: Aspirin 81 MG TAB.CHEW PO SCH (10:39)
[2016-11-21] MEDS: Furosemide 20 MG/2 ML VIAL IVP SCH ×2 (10:39→21:56)
[2016-11-21] MEDS: MethylPREDNISolone 40 MG/ML VIAL IVP SCH ×3 (10:39→21:56)
--- NOTE | 2016-11-21 17:57 | ECHO - Doppler Report ---
Echocardiogram Name: Nora aG Date of Study: 11/21/2016 Date: 1940 Ht: 65.0 in Medical Record#: [id number] Age: 76 Wt: 207.0 lb Gender: Female BSA: 2.01 Order #: [id number] Location: [facility] Room #: 2A37 Reading Physician: Kalani Renee DO Service Car Driver: Arpita Benson RDCS Ordering Physician: Aiden Dubose MD Primary Physician: Dm Mcclelland MD Indications: Congestive heart failure Impressions: LVEF 60-65%. Normal left ventricular size and systolic function. There is evidence of mild diastolic dysfunction of the left ventricle. Normal right ventricular function. Mild-moderate mitral regurgitation, may be underestimated. Mild tricuspid regurgitation. No pulmonary hypertension. Left Ventricular Wall Motion: Rest Echo Findings All wall segments showed normal motion. Findings: Study Quality * Technically adequate exam. ECG Findings * Normal sinus rhythm. Left Ventricle * Normal LV chamber size, wall thickness and function. * Mild left ventricular diastolic dysfunction. * LVEF 60-65%. Left Atrium * Normal left atrial size. Mitral Valve * Normal mitral valve structure. * No mitral stenosis. * Mild-moderate mitral regurgitation. Aortic Valve * No aortic regurgitation. * Trileaflet aortic valve. * Normal aortic valve structure. * No aortic stenosis. Tricuspid Valve * Tricuspid valve not well visualized. * Mild tricuspid regurgitation. * Estimated RA pressure is 3 mmHg. * Estimated RVSP is 27 mmHg. * No pulmonary hypertension. Pulmonic Valve * Pulmonic valve is not well visualized. * No pulmonic stenosis. * No pulmonic regurgitation. Pulmonary Artery * Pulmonary artery not well visualized. Right Atrium * Normal right atrial size. Interatrial Septum * No evidence of PFO by color Doppler. Pericardium * There is no pericardial effusion present. IVC * The IVC is not dilated. Aorta * Normally sized aortic root. Right Ventricle * RV size is not fully visualized in the apical views. Function is normal. History Hypertension Hypercholesteremia Family History of CAD History of CAD/PTCA 10-28-15 a Previous Echo was performed. Measurements: BP: 116/ 67 2D Normal Values RVIDd: 2.80 cm <2.7 cm IVSd: 1.10 cm 0.6 - 1.0 cm LVIDd: 4.40 cm 3.7 - 5.6 cm LVPWd: 1.20 cm 0.6 - 1.1 cm LVIDs: 3.00 cm 1.5 - 3.6 cm AO: 2.70 cm < 4.0 cm LA: 3.40 cm 2.0 - 4.0cm %FS: 31.80 cm >25 % LVOT Diam: 1.90 cm LA volume: 40 Mitral Valve Peak E:.98 m/sec Peak A:1.23 m/sec E/A Ratio:0.8 Peak E' Lat Osorio:9.94 cm/s Peak E' Med Osorio:5.65 cm/s E/E' Lat Ratio:9.9 E/E' Med Ratio:17.4 Tricuspid Valve TV Regurg Peak Grad: 24.00mmHg TV Regurg Peak Osorio: 2.43m/sec Updated by Kalani Renee on 11/21/2016 5:50:59 PM electronically signed on 11/21/2016 5:52:19 PM with status of Final Wall Motion [place]: 1=Normal, 2=Hypokinesis, 3=Akinesis, 4=Dyskinesis, 5=Aneurysmal, 6=Hyperkinetic, X=Not Visualized (Blank)=Missing
[2016-11-22] MEDS: Ipratropium/Albuterol Neb 3 ML IH SCH ×4 (03:52→20:50)
[2016-11-22] MEDS: Nitroglycerin 25 MG/250 ML INFUS..BTL IVC SCH (05:51)
[2016-11-22] MEDS: *HR* Enoxaparin 40 MG/0.4 ML SYRINGE SQ SCH (05:55)
[2016-11-22] MEDS: MethylPREDNISolone 40 MG/ML VIAL IVP SCH ×4 (06:04→17:35)
[2016-11-22 06:12] LABS: Basophils % 0.1 %; Hemoglobin 13.6 g/dL (11.5-15.4); Immature Granulocytes % 0.6 % (0-4); Lymphocytes # 0.6 K/mcL (0.6-4.6); Lymphocytes % 3.4 %; Mean Corpuscular HGB Conc 34.9 g/dL (31.6-35.5); Mean Corpuscular Hemoglobin 32.9 pg (28.0-33.3); Mean Corpuscular Volume 94.2 fL (83.0-100.0); Mean Platelet Volume 11.6 fL (9.4-12.4); Monocytes # 0.5 K/mcL (0.0-1.3); Monocytes % 2.5 %; Neutrophils # 17.4 K/mcL (1.6-8.9); Platelet Count 151 K/mcL (140-400); Red Blood Count 4.14 M/mcL (3.82-4.97); Red Cell Distribution Width 12.3 % (11.5-14.5); Segmented Neutrophils % 93.4 %
[2016-11-22 06:22] LABS: Calcium 9.4 mg/dL (8.6-10.8); Potassium 3.8 mEq/L (3.5-4.5)
[2016-11-22] MEDS: Furosemide 20 MG/2 ML VIAL IVP SCH (08:56)
[2016-11-22] MEDS: clonazePAM 0.5 MG TABLET PO SCH ×2 (08:56→21:16)
[2016-11-22] MEDS: Aspirin 81 MG TAB.CHEW PO SCH (08:57)
[2016-11-22] MEDS: rOPINIRole 1 MG TABLET PO SCH ×3 (08:57→21:16)
[2016-11-22] MEDS ORDERED: Levofloxacin 750 MG/150 ML 750 MG/150 ML BAG IVPB SCH (09:00)
--- NOTE | 2016-11-22 14:28 | Internal Med Progress Note ---
Date of Encounter: 11/22/16 Time of Encounter: 12:35 - Assessment and plan (1) Acute on chronic respiratory failure Current Visit: No Status: Acute Assessment and plan: Likely secondary to Community acquired Pneumonia Asthma exacerbation secondary to CAP Continue IV abx f/u blood cultures patient will benefit from ENT evaluation as outpatient O2 supplementation as needed continue systemic steroids will consider pulmonology eval if patient does not continue to improve clinically Lactic acidosis resolved, likely secondary to hypoxia Will obtain speech therapy eval as per patient's request for therapy for her vocal cord dysfunction (patient states her doctor had asked her to follow up with one but she didn't get a chance) Qualifiers: Respiratory failure complication: unspecified whether with hypoxia or hypercapnia Qualified Code(s): J96.20 - Acute and chronic respiratory failure , unspecified whether with hypoxia or hypercapnia (2) Asthma with exacerbation Current Visit: No Status: Acute Assessment and plan: management as listed above Qualifiers: Asthma severity: unspecified severity Qualified Code(s): J45.901 - Unspecified asthma with (acute) exacerbation (3) CAD (coronary artery disease) Current Visit: No Status: Chronic Assessment and plan: no signs of angina continue home medications Qualifiers: Coronary Disease-Associated Artery/Lesion type: [place] artery [place] vs. transplanted heart: [place] heart Associated angina: without angina Qualified Code(s): I25.10 - Atherosclerotic heart disease of [place] coronary artery without angina pectoris (4) Diastolic CHF Current Visit: No Status: Chronic Assessment and plan: 2D echo: Mild diastolic dysfunction with LVEF of 60-65% Not in acute exacerbation Will d/c Iv diuresis and continue PO lasix monitor I/Os monitor daily weight fluid restriction diet Qualifiers: Congestive heart failure chronicity: chronic Qualified Code(s): I50.32 - Chronic diastolic (congestive) heart failure (5) DVT prophylaxis Current Visit: No Status: Acute Assessment and plan: Lovenox SQ (6) HLD (hyperlipidemia) Current Visit: No Status: Acute Assessment and plan: continue home meds Qualifiers: Hyperlipidemia type: unspecified Qualified Code(s): E78.5 - Hyperlipidemia , unspecified (7) HTN (hypertension) Current Visit: No Status: Acute Assessment and plan: BP within acceptable range continue to monitor continue home meds holding Lisinopril given [place] Qualifiers: Hypertension type: essential hypertension Qualified Code(s): I10 - Essential (primary) hypertension (8) NACHO (obstructive sleep apnea) Current Visit: No Status: Acute Assessment and plan: continue CPAP at bedtime (9) Pneumonia Current Visit: Yes Status: Acute Assessment and plan: plan as listed above Qualifiers: Pneumonia type: due to unspecified organism Laterality: bilateral Lung location: lower lobe of lung Qualified Code(s): J18.9 - Pneumonia, unspecified organism (10) Acute kidney injury Current Visit: Yes Status: Acute Assessment and plan: Worsened from previous day likely secondary to diuretic therapy will continue to hold Lisinopril decreased diuretic dose will continue to closely monitor - Subjective Interval history: Patient seen and examined with family present at bedside. Pt reports feeling better and states she does not have COPD and denies any smoking history. States she has been diagnosed with Asthma and vocal cord dysfunction. Reports of being in her usual state of health until Wednesday when she started coughing and requiring home oxygen. At this time she is saturating well on nasal cannula. Denies any discomfort at this time. - Constitutional Vitals: Temp Pulse Resp BP Pulse Ox 97.6 F 98 17 118/66 98 11/22/16 11:10 11/22/16 11:10 11/22/16 11:10 11/22/16 11:10 11/22/16 11:10 General appearance: Present: cooperative, A&O X 3, no acute distress, obese, answers questions appropriately - Head Head exam: Present: atraumatic, normocephalic - Eye Eye exam: Present: normal appearance, conjuntiva pink, sclera anicteric - Respiratory Respiratory exam: Present: wheezes (bilateral expiratory wheezing). Absent: respiratory distress - Cardiovascular Cardiovascular exam: Present: RRR, +S1, +S2. Absent: diastolic murmur, gallop, rubs, systolic murmur - GI/Abdominal GI/Abdominal exam: Present: normal bowel sounds, soft, no peritoneal signs. Absent: distended, tenderness - Extremities Exam Extremities exam: Present: warm, radial pulses palpable and symetrical. Absent : calf tenderness, cyanotic, pedal edema - Neurological Exam Neurological exam: Present: alert, oriented X3 - Psychiatric Psychiatric exam: Present: normal affect, normal mood Internal Medicine: Result - Labs CBC & Chem 7: 11/22/16 05:22 11/22/16 05:22 Labs: Short CBC 11/22/16 Range/Units 05:22 WBC 18.7 H (4.3-11.1) K/mcL Hgb 13.6 (11.5-15.4) g/dL Hct 39.0 (35.3-44.9) % Plt Count 151 (140-400) K/mcL Neutrophils # 17.4 H (1.6-8.9) K/mcL BMP 11/22/16 05:22 Sodium 133 L Potassium 3.8 Chloride 98 Carbon Dioxide 23 BUN 29 H D Creatinine 1.34 H Glucose 221 H Calcium 9.4 - ABG Interpretation ABG results: ABG ABG pH 7.27 pH Units (7.32-7.45) L 11/21/16 05:15 ABG pCO2 47 mmHg (35-45) H 11/21/16 05:15 ABG pO2 292 mmHg (85-104) H 11/21/16 05:15 ABG O2 Saturation 100 % (95-98) H 11/21/16 05:15 PT/INR, D-dimer PT 11.6 Seconds (9.4-12.1) 11/21/16 04:41 Consult Discharge Plan - Plan Referrals: Dm Mcclelland MD [Primary Care Provider] -
[2016-11-22] MEDS: Furosemide 20 MG TABLET PO SCH (17:35)
[2016-11-23] MEDS: MethylPREDNISolone 40 MG/ML VIAL IVP SCH ×2 (00:09→09:21)
[2016-11-23] MEDS: Ipratropium/Albuterol Neb 3 ML IH SCH ×4 (03:54→21:05)
[2016-11-23 05:00] LABS: Basophils % 0.1 %; Hematocrit 35.9 % (35.3-44.9); Hemoglobin 12.6 g/dL (11.5-15.4); Immature Granulocytes % 0.7 % (0-4); Lymphocytes # 0.6 K/mcL (0.6-4.6); Lymphocytes % 3.9 %; Mean Corpuscular HGB Conc 35.1 g/dL (31.6-35.5); Mean Corpuscular Hemoglobin 32.4 pg (28.0-33.3); Mean Corpuscular Volume 92.3 fL (83.0-100.0); Mean Platelet Volume 10.9 fL (9.4-12.4); Monocytes # 0.4 K/mcL (0.0-1.3); Monocytes % 2.4 %; Neutrophils # 14.7 K/mcL (1.6-8.9); Platelet Count 166 K/mcL (140-400); Red Blood Count 3.89 M/mcL (3.82-4.97); Red Cell Distribution Width 12.3 % (11.5-14.5); Segmented Neutrophils % 92.9 %
[2016-11-23 05:27] LABS: Calcium 9.2 mg/dL (8.6-10.8); Magnesium 2.1 mg/dL (1.6-2.6); Phosphorous 3.6 mg/dL (2.3-4.7); Potassium 4.5 mEq/L (3.5-4.5)
[2016-11-23] MEDS: Furosemide 20 MG TABLET PO SCH ×2 (06:20→17:30)
[2016-11-23] MEDS: *HR* Enoxaparin 40 MG/0.4 ML SYRINGE SQ SCH (06:20)
[2016-11-23] MEDS ORDERED: Levofloxacin 750 MG/150 ML 750 MG/150 ML BAG IVPB SCH (09:00)
[2016-11-23] MEDS: Aspirin 81 MG TAB.CHEW PO SCH (09:20)
[2016-11-23] MEDS: clonazePAM 0.5 MG TABLET PO SCH ×2 (09:20→21:26)
[2016-11-23] MEDS: rOPINIRole 1 MG TABLET PO SCH ×3 (09:21→21:26)
[2016-11-23] MEDS ORDERED: D5% in Water 1,000 ML IVC PRN (12:17)
[2016-11-23] MEDS ORDERED: *HR* Dextrose 50 % in Water (Syg) 50 ML SYRINGE IVP PRN (12:17)
[2016-11-23] MEDS ORDERED: Dextrose Gel 15 GM PO PRN ×2 (12:17)
--- NOTE | 2016-11-23 12:30 | Pulmonology History & Physical ---
Date of Encounter: 11/23/16 Time of Encounter: 11:30 History of Present Illness Chief complaint: asthma exacerbation HPI: Ms. Ga is a 76 year old female Past Med Surg Social Fam HX - Past Medical History Medical history: asthma, cancer, GERD, hyperlipidemia, hypertension Psychiatric history: anxiety, panic disorder - Past Surgical History Surgical History: , cholecystectomy, knee replacement, orthopedic, other, other - Social History Smoking Status: Never smoker Smokeless Tobacco Status: No Alcohol use: none Drug use: none - Family History Mother Living Status: Hx Family Cardiac Disorders: Yes Hx Family Respiratory Disorders: Yes Father Living Status: Hx Family Cardiac Disorders: Yes Medications and Allergies BuPROPion [Wellbutrin] 100 mg PO BID 09/20/15 [History] Lisinopril [Zestril] 10 mg PO DAILY 09/20/15 [History] Montelukast [Singulair] 10 mg PO HS 09/20/15 [History] Ropinirole HCl [Requip] 2 mg PO TID 09/20/15 [History] Simvastatin [Zocor] 20 mg PO HS 09/20/15 [History] Albuterol Sulfate [Ventolin Hfa] 1 - 2 puff IH Q4-6H PRN 10/17/15 [History] Oxygen 2 l NS AD 10/17/15 [History] Loratadine [Claritin] 10 mg PO DAILY #0 10/27/15 [History] ClonazePAM [Klonopin] 0.25 mg PO BID #14 tablet 11/03/15 [Rx] Ipratropium/Albuterol Neb [Duoneb] 3 ml IH [id number] #60 inhsol 11/03/15 [Rx] Aspirin 81 mg PO DAILY 03/10/16 [History] Cholecalciferol (D-3) [Vitamin D] 1,000 unit PO DAILY 03/10/16 [History] Furosemide [Lasix] 20 mg PO DAILY #30 tablet 03/17/16 [Rx] Potassium Chloride [K-Tab ER] 20 meq PO DAILY #30 tablet.er 03/17/16 [Rx] Omeprazole [PriLOSEC] 40 mg PO DAILY 05/20/16 [History] Budesonide/Formoterol 160/4.5 [Symbicort 160/4.5] 2 puff IH BIDR 11/21/16 [ History] Allergies No Known Allergies Allergy (Verified 10/27/15 19:21) All Systems: A 10-system review of systems was performed and is negative for pertinent findings except as documented above in the HPI. Physical Examination Vital Signs: Vital Signs, Last 4 Hours Pulse Resp BP Pulse Ox 11/23/16 11:28 81 16 132/56 94 11/23/16 09:42 95 Results - Laboratory Findings CBC and BMP: 11/23/16 04:39 11/23/16 04:39 ABG ABG pH 7.27 pH Units (7.32-7.45) L 11/21/16 05:15 ABG pCO2 47 mmHg (35-45) H 11/21/16 05:15 ABG pO2 292 mmHg (85-104) H 11/21/16 05:15 ABG O2 Saturation 100 % (95-98) H 11/21/16 05:15 PT/INR, D-dimer PT 11.6 Seconds (9.4-12.1) 11/21/16 04:41 Abnormal lab findings: Abnormal lab results WBC 15.8 K/mcL (4.3-11.1) H 11/23/16 04:39 Neutrophils # 14.7 K/mcL (1.6-8.9) H 11/23/16 04:39 ABG pH 7.27 pH Units (7.32-7.45) L 11/21/16 05:15 ABG pCO2 47 mmHg (35-45) H 11/21/16 05:15 ABG pO2 292 mmHg (85-104) H 11/21/16 05:15 ABG O2 Saturation 100 % (95-98) H 11/21/16 05:15 ABG Base Excess -5.5 mEq/L (-2.0 to 3.0) L 11/21/16 05:15 Sodium 132 mEq/L (136-145) L 11/23/16 04:39 BUN 34 mg/dL (7-20) H 11/23/16 04:39 Creatinine 1.28 mg/dL (0.57-1.11) H 11/23/16 04:39 Est GFR ( Amer) 49 (> 60) L 11/23/16 04:39 Est GFR (Non-Af Amer) 40 (> 60) L 11/23/16 04:39 BUN/Creatinine Ratio 27 (6-26) H 11/23/16 04:39 Glucose 279 mg/dL (70-99) H 11/23/16 04:39 AST 39 Units/L (5-34) H 11/21/16 04:41 Urine Protein 30 mg/dL (Neg-Trace) H 11/21/16 05:40 Ur Squamous Epith Cells Many per lpf (None-Few) H 11/21/16 05:40
--- NOTE | 2016-11-23 12:46 | Pulmonology Consult Note ---
<Jackson Rubio - Last Filed: 11/23/16 13:59> Date of Encounter: 11/23/16 Time of Encounter: 11:30 Assessment and Plan (1) Acute respiratory failure with hypoxia Current Visit: Yes Status: Acute Ms. Ga was brought to the emergency department by EMS after an acute hypoxic episode at home on 11/21/2016. Oxygen saturations were recorded in the 40's and the patient demonstrated confusion. Initial ABG had a pH 7.27, PCO2 47 , pO2 292 on BIPAP, HCO3 21.6 O2 sat 100, Lactic acid was 5.6 upon arrival. WBC 22.3 and CXR demonstrates patchy perihilar airspace disease and pulmonary vascular congestion. BNP 64 - Highly suspicious for asthma exacerbation but can not rule out the possibility of a vocal cord spasm. - Symptoms improved after she was tarted on nitroglycerin drip, BiPAP, Lasix, 3 duo nebs and Solu-Medrol. - Lactic acidosis resolved, likely secondary to hypoxia. Plan: - Continue to wean oxygen requirements as tolerated. - Continue Duonebs and Albuterol nebulizer as scheduled. - Switch IV steroids to PO Prednisone and complete 5 days. - Continue Montelukast 10mg po HS. - Complete 5 days of Levaquin - Patient should follow up with ENT post hospitalization to evaluate for vocal cord dysfunction. If this is ruled out then her recurrent episodes will likely be related to reactive airway disease. (2) Asthma with acute exacerbation in adult Current Visit: No Status: Acute Suspicious for Asthma exacerbation given patient symptoms and clinical picture upon presentation. Today she appears in no acute distress and wheezing is absent. Lungs were clear to auscultation on examination. Tracheal auscultation was clear of strider. Plan: Continue plan as above. (3) Lactic acidosis Current Visit: No Status: Acute Resolved. Lactic acidosis secondary to acute hypoxic respiratory failure. Patient clinically improving. (4) NACHO (obstructive sleep apnea) Current Visit: No Status: Acute Patient has known obstructive sleep apnea and uses her CPAP at home. This should be continued during her inpatient stay. History of Present Illness Consult date: 11/23/16 Requesting physician: Caitlin Hoskins Reason for consult: asthma Chief complaint: hypoxia History of present illness: Ms. Ga is a 76 year old female with a past medical history of diastolic CHF, CKD stage III, asthma, vocal cord dysfunction was admitted to [facility] on 11/21/2016 for difficulty breathing. Ms. Ga says that over the last week she has been feeling more short of breath difficulty taking deep breaths, feeling a tightness in her substernal region. She has increasing exertional dyspnea. She has chronic sputum production that has increased in quantity which is described as clear with occasional yellow. She denies feeling feverish or chilled, significant weight loss or weight gain. She explains that she has had a difficult time with her breathing and has had 5 hospitalizations for similar breathing difficulties. With this current episode she had been off any breathing treatments after seeing a physician in [place] who said that she does not have asthma but he vocal cord dysfunction. She had stopped taking her inhalers and breathing treatments at the direction of her physician in [place]. Over the past week she started feeling more short of breath having difficulty breathing and then acutely became short of breath on Wednesday and used her breathing treatments 3 times in a single day. 12/2016 she had an acute episode of shortness of breath could not find her nebulizer vials and called for her son who then contacted EMS. EMS recorded oxygen saturation the 40s and required BiPAP therapy upon arrival. She explains that she does have occasional wheezing which would be resolved with breathing treatments. Past Med Surg Social Fam HX - Past Medical History Medical history: asthma, cancer, GERD, hyperlipidemia, hypertension Psychiatric history: anxiety, panic disorder - Past Surgical History Surgical History: , cholecystectomy, knee replacement, orthopedic, other, other - Social History Smoking Status: Never smoker Smokeless Tobacco Status: No Alcohol use: none Drug use: none - Family History Mother Living Status: Hx Family Cardiac Disorders: Yes Hx Family Respiratory Disorders: Yes Father Living Status: Hx Family Cardiac Disorders: Yes Medications and Allergies BuPROPion [Wellbutrin] 100 mg PO BID 09/20/15 [History] Lisinopril [Zestril] 10 mg PO DAILY 09/20/15 [History] Montelukast [Singulair] 10 mg PO HS 09/20/15 [History] Ropinirole HCl [Requip] 2 mg PO TID 09/20/15 [History] Simvastatin [Zocor] 20 mg PO HS 09/20/15 [History] Albuterol Sulfate [Ventolin Hfa] 1 - 2 puff IH Q4-6H PRN 10/17/15 [History] Oxygen 2 l NS AD 10/17/15 [History] Loratadine [Claritin] 10 mg PO DAILY #0 10/27/15 [History] ClonazePAM [Klonopin] 0.25 mg PO BID #14 tablet 11/03/15 [Rx] Ipratropium/Albuterol Neb [Duoneb] 3 ml IH [id number] #60 inhsol 11/03/15 [Rx] Aspirin 81 mg PO DAILY 03/10/16 [History] Cholecalciferol (D-3) [Vitamin D] 1,000 unit PO DAILY 03/10/16 [History] Furosemide [Lasix] 20 mg PO DAILY #30 tablet 03/17/16 [Rx] Potassium Chloride [K-Tab ER] 20 meq PO DAILY #30 tablet.er 03/17/16 [Rx] Omeprazole [PriLOSEC] 40 mg PO DAILY 05/20/16 [History] Budesonide/Formoterol 160/4.5 [Symbicort 160/4.5] 2 puff IH BIDR 11/21/16 [ History] Allergies No Known Allergies Allergy (Verified 10/27/15 19:21) All Systems: A 10-system review of systems was performed and is negative for pertinent findings except as documented above in the HPI. - Constitutional Constitutional: excessive sweating, no chills, no fever(s), no weight loss - EENT Nose, mouth and throat: no change in voice, no dry mouth, no sore throat - Cardiovascular Cardiovascular: dyspnea, dyspnea on exertion, no chest pain, no chest pain at rest, no diaphoresis, no edema, no radiating jaw, neck or arm pain, no orthopnea , no palpitations - Respiratory Respiratory: dyspnea, dyspnea on exertion, wheezing - Gastrointestinal Gastrointestinal: no cramping, no diarrhea, no loose stools, no nausea, no vomiting - Genitourinary Genitourinary: no change in urinary stream, no difficulty urinating, no dysuria - Musculoskeletal Musculoskeletal: no neck pain - Neurological Neurological: no dizziness, no loss of vision, no syncope Physical Examination Vital Signs: Vital Signs, Last 4 Hours Pulse Resp BP Pulse Ox 11/23/16 11:28 81 16 132/56 94 11/23/16 09:42 95 General appearance: no acute distress, alert Eyes: nonicteric ENT: oropharynx moist Neck: supple, no lymphadenopathy, no JVD Effort: normal Inspection: normal Auscultation: bilateral: clear (Breast sounds clear to auscultation all lung travis. No stridor appreciated, no wheezing) Cardiovascular: regular rate and rhythm Gastrointestinal: normoactive bowel sounds, soft, non-tender, non-distended Integumentary: normal Extremities: no edema, no clubbing, pink and warm, pulses normal Musculoskeletal: no deformities normal mental status, non-focal exam, pupils equal and round, motor strength normal and symmetric mood appropriate, affect normal Results - Laboratory Findings CBC and BMP: 11/23/16 04:39 11/23/16 04:39 ABG ABG pH 7.27 pH Units (7.32-7.45) L 11/21/16 05:15 ABG pCO2 47 mmHg (35-45) H 11/21/16 05:15 ABG pO2 292 mmHg (85-104) H 11/21/16 05:15 ABG O2 Saturation 100 % (95-98) H 11/21/16 05:15 PT/INR, D-dimer PT 11.6 Seconds (9.4-12.1) 11/21/16 04:41 Abnormal lab findings: Abnormal lab results WBC 15.8 K/mcL (4.3-11.1) H 11/23/16 04:39 Neutrophils # 14.7 K/mcL (1.6-8.9) H 11/23/16 04:39 ABG pH 7.27 pH Units (7.32-7.45) L 11/21/16 05:15 ABG pCO2 47 mmHg (35-45) H 11/21/16 05:15 ABG pO2 292 mmHg (85-104) H 11/21/16 05:15 ABG O2 Saturation 100 % (95-98) H 11/21/16 05:15 ABG Base Excess -5.5 mEq/L (-2.0 to 3.0) L 11/21/16 05:15 Sodium 132 mEq/L (136-145) L 11/23/16 04:39 BUN 34 mg/dL (7-20) H 11/23/16 04:39 Creatinine 1.28 mg/dL (0.57-1.11) H 11/23/16 04:39 Est GFR ( Amer) 49 (> 60) L 11/23/16 04:39 Est GFR (Non-Af Amer) 40 (> 60) L 11/23/16 04:39 BUN/Creatinine Ratio 27 (6-26) H 11/23/16 04:39 Glucose 279 mg/dL (70-99) H 11/23/16 04:39 AST 39 Units/L (5-34) H 11/21/16 04:41 Urine Protein 30 mg/dL (Neg-Trace) H 11/21/16 05:40 Ur Squamous Epith Cells Many per lpf (None-Few) H 11/21/16 05:40 - Clinical Findings Intake & Output: Intake & Output 11/22/16 11/23/16 11/23/16 23:59 07:59 15:59 Intake Total 500 / 500 240 / 240 Output Total 875 / 875 350 / 350 0 / 0 Balance -375 / -375 -350 / -350 240 / 240 Weight 95.6 kg Consult Discharge Plan - Plan Referrals: Dm Mcclelland MD [Primary Care Provider] - 12/02/16 10:00 am (Please follow up as schedule...) <Alex Loera M - Last Filed: 11/23/16 15:47> Date of Encounter: 11/23/16 All Systems: A 10-system review of systems was performed and is negative for pertinent findings except as documented above in the HPI. Physical Examination Vital Signs: Vital Signs, Last 4 Hours Temp Pulse Resp BP Pulse Ox 11/23/16 15:24 97.9 F 72 17 127/76 96 Results - Laboratory Findings CBC and BMP: 11/23/16 04:39 11/23/16 04:39 ABG ABG pH 7.27 pH Units (7.32-7.45) L 11/21/16 05:15 ABG pCO2 47 mmHg (35-45) H 11/21/16 05:15 ABG pO2 292 mmHg (85-104) H 11/21/16 05:15 ABG O2 Saturation 100 % (95-98) H 11/21/16 05:15 PT/INR, D-dimer PT 11.6 Seconds (9.4-12.1) 11/21/16 04:41 Abnormal lab findings: Abnormal lab results WBC 15.8 K/mcL (4.3-11.1) H 11/23/16 04:39 Neutrophils # 14.7 K/mcL (1.6-8.9) H 11/23/16 04:39 ABG pH 7.27 pH Units (7.32-7.45) L 11/21/16 05:15 ABG pCO2 47 mmHg (35-45) H 11/21/16 05:15 ABG pO2 292 mmHg (85-104) H 11/21/16 05:15 ABG O2 Saturation 100 % (95-98) H 11/21/16 05:15 ABG Base Excess -5.5 mEq/L (-2.0 to 3.0) L 11/21/16 05:15 Sodium 132 mEq/L (136-145) L 11/23/16 04:39 BUN 34 mg/dL (7-20) H 11/23/16 04:39 Creatinine 1.28 mg/dL (0.57-1.11) H 11/23/16 04:39 Est GFR ( Amer) 49 (> 60) L 11/23/16 04:39 Est GFR (Non-Af Amer) 40 (> 60) L 11/23/16 04:39 BUN/Creatinine Ratio 27 (6-26) H 11/23/16 04:39 Glucose 279 mg/dL (70-99) H 11/23/16 04:39 AST 39 Units/L (5-34) H 11/21/16 04:41 Urine Protein 30 mg/dL (Neg-Trace) H 11/21/16 05:40 Ur Squamous Epith Cells Many per lpf (None-Few) H 11/21/16 05:40 - Clinical Findings Intake & Output: Intake & Output 11/22/16 11/23/16 11/23/16 23:59 07:59 15:59 Intake Total 500 / 500 600 / 600 Output Total 875 / 875 350 / 350 0 / 0 Balance -375 / -375 -350 / -350 600 / 600 Weight 95.6 kg - Attending Attestation I examined this patient and my medical decision-making was reviewed with the PROJECT FINANCIAL ANALYST/PA/Advanced Practice Nurse/Resident Physician. I agree with the documented findings, disposition and treatment plan as described except to the extent set forth below. Patient seen and examined. Labs, radiology, chart personally reviewed. Agree with resident's history and physical, assessment, plan with following comments: TRUCK DESPATCHER: Patient follows commands, Pulmonary: Acceptable oxygenation and ventilation. Patient is known to me from the outpatient and also previous hospitalization. Patient has what I suspect reactive airway disease/asthma even though she was told she does not have any problems with her lungs, but she feels there is wheezing and sputum production and also she will respond to bronchodilators with his systemic steroid and antibiotics which is unusual with vocal cord dysfunction. I have told her to follow-up with ENT and a half vocal dysfunction treated and is still has exacerbations then that is most likely possible reactive airway disease/asthma. I would agree with current treatment for now and follow-up as outpatient. Before discharge home evaluation for oxygen with 6 minute walk test is recommended. Thank you very much for the consultation. Cardiovascular: stable
[2016-11-23] MEDS ORDERED: *HR* HYDROcodone/Acet 5/325 mg TABLET PO PRN (12:53)
[2016-11-23 13:11] LABS: Hemoglobin A1C 5.3 %
--- NOTE | 2016-11-23 14:33 | Internal Med Progress Note ---
Date of Encounter: 11/23/16 Time of Encounter: 14:28 - Assessment and plan (1) Acute on chronic respiratory failure Current Visit: No Status: Acute Assessment and plan: Likely secondary to Community acquired Pneumonia Asthma exacerbation secondary to CAP Continue IV abx, de-escalate to Levaquin in am f/u blood cultures patient will benefit from ENT evaluation as outpatient O2 supplementation as needed continue systemic steroids, changed to Solumederol q12h and will start Prednisone in am Pulmonary consultation appreciated Qualifiers: Respiratory failure complication: unspecified whether with hypoxia or hypercapnia Qualified Code(s): J96.20 - Acute and chronic respiratory failure , unspecified whether with hypoxia or hypercapnia (2) Asthma with exacerbation Current Visit: No Status: Acute Assessment and plan: management as listed above Qualifiers: Asthma severity: unspecified severity Qualified Code(s): J45.901 - Unspecified asthma with (acute) exacerbation (3) CAD (coronary artery disease) Current Visit: No Status: Chronic Assessment and plan: no signs of angina continue home medications Qualifiers: Coronary Disease-Associated Artery/Lesion type: [place] artery [place] vs. transplanted heart: [place] heart Associated angina: without angina Qualified Code(s): I25.10 - Atherosclerotic heart disease of [place] coronary artery without angina pectoris (4) Diastolic CHF Current Visit: No Status: Chronic Assessment and plan: 2D echo: Mild diastolic dysfunction with LVEF of 60-65% Not in acute exacerbation Will d/c Iv diuresis and continue PO lasix monitor I/Os monitor daily weight fluid restriction diet Qualifiers: Congestive heart failure chronicity: chronic Qualified Code(s): I50.32 - Chronic diastolic (congestive) heart failure (5) DVT prophylaxis Current Visit: No Status: Acute Assessment and plan: Lovenox SQ (6) HLD (hyperlipidemia) Current Visit: No Status: Acute Assessment and plan: continue home meds Qualifiers: Hyperlipidemia type: unspecified Qualified Code(s): E78.5 - Hyperlipidemia , unspecified (7) HTN (hypertension) Current Visit: No Status: Acute Assessment and plan: BP within acceptable range continue to monitor continue home meds holding Lisinopril given BARRON Qualifiers: Hypertension type: essential hypertension Qualified Code(s): I10 - Essential (primary) hypertension (8) NACHO (obstructive sleep apnea) Current Visit: No Status: Acute Assessment and plan: continue CPAP at bedtime (9) Pneumonia Current Visit: Yes Status: Acute Assessment and plan: plan as listed above Qualifiers: Pneumonia type: due to unspecified organism Laterality: bilateral Lung location: lower lobe of lung Qualified Code(s): J18.9 - Pneumonia, unspecified organism (10) Acute kidney injury Current Visit: Yes Status: Acute Assessment and plan: Improved from previous day likely secondary to diuretic therapy will continue to hold Lisinopril continue current diuretic dose will continue to closely monitor - Subjective Interval history: Patient seen and examined with family present at bedside. Reports of feeling better. Currently saturating well on room air. Speech and PUlmonary consultation appreciated. - Constitutional Vitals: Temp Pulse Resp BP Pulse Ox 98 F 81 16 132/56 94 11/23/16 07:55 11/23/16 11:28 11/23/16 11:28 11/23/16 11:28 11/23/16 11:28 General appearance: Present: cooperative, A&O X 3, no acute distress, obese, answers questions appropriately - Head Head exam: Present: atraumatic, normocephalic - Eye Eye exam: Present: normal appearance, conjuntiva pink, sclera anicteric - Respiratory Respiratory exam: Present: CTAB. Absent: accessory muscle use, rales, rhonchi, wheezes - Cardiovascular Cardiovascular exam: Present: RRR, +S1, +S2. Absent: diastolic murmur, gallop, rubs, systolic murmur - GI/Abdominal GI/Abdominal exam: Present: normal bowel sounds, soft, no peritoneal signs. Absent: distended, tenderness - Extremities Exam Extremities exam: Present: warm, radial pulses palpable and symetrical. Absent : calf tenderness, cyanotic, pedal edema - Neurological Exam Neurological exam: Present: alert, oriented X3 - Psychiatric Psychiatric exam: Present: normal affect, normal mood Internal Medicine: Result - Labs CBC & Chem 7: 11/23/16 04:39 11/23/16 04:39 Labs: Short CBC 11/23/16 Range/Units 04:39 WBC 15.8 H (4.3-11.1) K/mcL Hgb 12.6 (11.5-15.4) g/dL Hct 35.9 (35.3-44.9) % Plt Count 166 (140-400) K/mcL Neutrophils # 14.7 H (1.6-8.9) K/mcL BMP 11/23/16 04:39 Sodium 132 L Potassium 4.5 Chloride 99 Carbon Dioxide 22 BUN 34 H Creatinine 1.28 H Glucose 279 H Calcium 9.2 - ABG Interpretation ABG results: ABG ABG pH 7.27 pH Units (7.32-7.45) L 11/21/16 05:15 ABG pCO2 47 mmHg (35-45) H 11/21/16 05:15 ABG pO2 292 mmHg (85-104) H 11/21/16 05:15 ABG O2 Saturation 100 % (95-98) H 11/21/16 05:15 PT/INR, D-dimer PT 11.6 Seconds (9.4-12.1) 11/21/16 04:41 Consult Discharge Plan - Plan Referrals: Dm Mcclelland MD [Primary Care Provider] - 12/02/16 10:00 am (Please follow up as schedule...)
[2016-11-23] MEDS: Insulin LISPRO 300 UNITS/3 ML VIAL SQ SCH (17:30)
[2016-11-23] MEDS ORDERED: MethylPREDNISolone 40 MG/ML VIAL IVP SCH (18:00)
[2016-11-23] MEDS ORDERED: Insulin LISPRO 300 UNITS/3 ML VIAL SQ SCH (21:00)
[2016-11-24] MEDS: Ipratropium/Albuterol Neb 3 ML IH SCH ×3 (04:51→16:01)
[2016-11-24 05:50] LABS: Basophils % 0.1 %; Hematocrit 36.3 % (35.3-44.9); Hemoglobin 12.7 g/dL (11.5-15.4); Immature Granulocytes % 1.1 % (0-4); Lymphocytes # 0.5 K/mcL (0.6-4.6); Lymphocytes % 4.4 %; Mean Corpuscular Hemoglobin 32.6 pg (28.0-33.3); Mean Corpuscular Volume 93.3 fL (83.0-100.0); Mean Platelet Volume 11.4 fL (9.4-12.4); Monocytes # 0.5 K/mcL (0.0-1.3); Monocytes % 3.9 %; Neutrophils # 10.9 K/mcL (1.6-8.9); Platelet Count 160 K/mcL (140-400); Red Blood Count 3.89 M/mcL (3.82-4.97); Red Cell Distribution Width 12.4 % (11.5-14.5); Segmented Neutrophils % 90.5 %
[2016-11-24] MEDS ORDERED: *HR* Enoxaparin 30 MG/0.3 ML SYRINGE SQ SCH (06:00)
[2016-11-24 06:09] LABS: Calcium 9.1 mg/dL (8.6-10.8); Magnesium 2.3 mg/dL (1.6-2.6); Potassium 4.3 mEq/L (3.5-4.5)
[2016-11-24 08:00] VITALS: BP 145/73
--- NOTE | 2016-11-24 08:10 | Pulmonology Progress Note ---
<Jackson Rubio - Last Filed: 11/24/16 08:20> Date of Encounter: 11/24/16 Time of Encounter: 08:10 Assessment and Plan (1) Acute respiratory failure with hypoxia Status: Acute Patient is stable today. No longer wearing nasal cannula oxygen, oxygen saturation. 90% on room air. Patient does not appear to be in any distress. She is talking in full sentences without having to stop for breathing. Plan: - Continue to wean oxygen requirements as tolerated. - Continue Duonebs and Albuterol nebulizer as scheduled. - Continue by mouth prednisone for a total 5 days. - Continue Montelukast 10mg po HS. - Complete 5 days of Levaquin - Patient should follow up with ENT post hospitalization to evaluate for vocal cord dysfunction. If this is ruled out then her recurrent episodes will likely be related to reactive airway disease. (2) Asthma with acute exacerbation in adult Status: Acute Suspicious for Asthma exacerbation given patient symptoms and clinical picture upon presentation. 11/24/2016: Today she appears in no acute distress and wheezing is absent. Lungs were clear to auscultation on examination. Tracheal auscultation was clear of strider. Plan: Continue plan as above. (3) Lactic acidosis Status: Acute Resolved. (4) NACHO (obstructive sleep apnea) Status: Acute Patient has known obstructive sleep apnea and uses her CPAP at home. This should be continued during her inpatient stay. Subjective Principal diagnosis: Acute hypoxic respiratory failure Interval history: Mrs. Ga has been seen and evaluated patient bedside this morning. She is alert awake interactive in no acute distress. She is sitting up at bedside eating breakfast without any difficulty. She said that she is feeling much better, improving but not completely back to baseline. She is looking forward to discharge. She denies any shortness of breath, difficulty breathing this or hypoxic episodes. She has any nausea, vomiting, diarrhea or constipation or abdominal pains. She is concerned about the recurrence of these episodes and plans to follow up with ENT post discharge. After further discussion she mentions that she discarded of her Singulair prescription after her visit in [place]. Objective PUL Vital signs: Last Vital Signs Temp 97.5 F L 11/24/16 07:58 Pulse 78 11/24/16 07:58 Resp 16 11/24/16 07:58 BP 145/73 11/24/16 07:58 Pulse Ox 93 11/24/16 07:58 General appearance: no acute distress, alert Eyes: nonicteric ENT: oropharynx moist Neck: supple, no lymphadenopathy, no JVD Effort: normal Auscultation: bilateral: clear Cardiovascular: regular rate and rhythm Gastrointestinal: normoactive bowel sounds, soft, non-tender Extremities: no cyanosis, no edema, no clubbing, pink and warm, pulses normal normal mental status, pupils equal and round, motor strength normal and symmetric mood appropriate, affect normal Results - Laboratory Findings CBC and BMP: 11/24/16 04:49 11/24/16 04:49 ABG ABG pH 7.27 pH Units (7.32-7.45) L 11/21/16 05:15 ABG pCO2 47 mmHg (35-45) H 11/21/16 05:15 ABG pO2 292 mmHg (85-104) H 11/21/16 05:15 ABG O2 Saturation 100 % (95-98) H 11/21/16 05:15 PT/INR, D-dimer PT 11.6 Seconds (9.4-12.1) 11/21/16 04:41 Abnormal lab findings: Abnormal lab results WBC 12.1 K/mcL (4.3-11.1) H 11/24/16 04:49 Neutrophils # 10.9 K/mcL (1.6-8.9) H 11/24/16 04:49 Lymphocytes # 0.5 K/mcL (0.6-4.6) L 11/24/16 04:49 ABG pH 7.27 pH Units (7.32-7.45) L 11/21/16 05:15 ABG pCO2 47 mmHg (35-45) H 11/21/16 05:15 ABG pO2 292 mmHg (85-104) H 11/21/16 05:15 ABG O2 Saturation 100 % (95-98) H 11/21/16 05:15 ABG Base Excess -5.5 mEq/L (-2.0 to 3.0) L 11/21/16 05:15 BUN 35 mg/dL (7-20) H 11/24/16 04:49 Creatinine 1.21 mg/dL (0.57-1.11) H 11/24/16 04:49 Est GFR ( Amer) 52 (> 60) L 11/24/16 04:49 Est GFR (Non-Af Amer) 43 (> 60) L 11/24/16 04:49 BUN/Creatinine Ratio 29 (6-26) H 11/24/16 04:49 Glucose 196 mg/dL (70-99) H 11/24/16 04:49 POC Glucose 309 (58-89) H 11/23/16 20:34 AST 39 Units/L (5-34) H 11/21/16 04:41 Urine Protein 30 mg/dL (Neg-Trace) H 11/21/16 05:40 Ur Squamous Epith Cells Many per lpf (None-Few) H 11/21/16 05:40 - Clinical Findings Intake & Output: Intake & Output 11/23/16 11/24/16 11/24/16 23:59 07:59 15:59 Intake Total 420 / 420 50 / 50 Output Total 300 / 300 300 / 300 Balance 120 / 120 -250 / -250 Weight 95.481 kg Consult Discharge Plan - Plan Additional Instructions: Follow up with ENT Referrals: Dm Mcclelland MD [Primary Care Provider] - 12/02/16 10:00 am (Please follow up as schedule...) Clifford Steele MD [Non-Partnered Physician] - 11/26/16 1:15 pm Prescriptions: Levofloxacin [Levaquin] 750 mg PO DAILY #4 tablet Montelukast [Singulair] 10 mg PO HS #30 tablet PredniSONE 40 mg PO DAILY 5 Days <Alex Loera - Last Filed: 11/24/16 19:50> Date of Encounter: 11/24/16 Objective PUL Vital signs: Last Vital Signs Temp 97.5 F L 11/24/16 07:58 Pulse 78 11/24/16 07:58 Resp 16 11/24/16 10:53 BP 145/73 11/24/16 07:58 Pulse Ox 93 11/24/16 10:53 Results - Laboratory Findings CBC and BMP: 11/24/16 04:49 11/24/16 04:49 ABG ABG pH 7.27 pH Units (7.32-7.45) L 11/21/16 05:15 ABG pCO2 47 mmHg (35-45) H 11/21/16 05:15 ABG pO2 292 mmHg (85-104) H 11/21/16 05:15 ABG O2 Saturation 100 % (95-98) H 11/21/16 05:15 PT/INR, D-dimer PT 11.6 Seconds (9.4-12.1) 11/21/16 04:41 Abnormal lab findings: Abnormal lab results WBC 12.1 K/mcL (4.3-11.1) H 11/24/16 04:49 Neutrophils # 10.9 K/mcL (1.6-8.9) H 11/24/16 04:49 Lymphocytes # 0.5 K/mcL (0.6-4.6) L 11/24/16 04:49 ABG pH 7.27 pH Units (7.32-7.45) L 11/21/16 05:15 ABG pCO2 47 mmHg (35-45) H 11/21/16 05:15 ABG pO2 292 mmHg (85-104) H 11/21/16 05:15 ABG O2 Saturation 100 % (95-98) H 11/21/16 05:15 ABG Base Excess -5.5 mEq/L (-2.0 to 3.0) L 11/21/16 05:15 BUN 35 mg/dL (7-20) H 11/24/16 04:49 Creatinine 1.21 mg/dL (0.57-1.11) H 11/24/16 04:49 Est GFR ( Amer) 52 (> 60) L 11/24/16 04:49 Est GFR (Non-Af Amer) 43 (> 60) L 11/24/16 04:49 BUN/Creatinine Ratio 29 (6-26) H 11/24/16 04:49 Glucose 196 mg/dL (70-99) H 11/24/16 04:49 POC Glucose 228 (58-89) H 11/24/16 11:07 AST 39 Units/L (5-34) H 11/21/16 04:41 Urine Protein 30 mg/dL (Neg-Trace) H 11/21/16 05:40 Ur Squamous Epith Cells Many per lpf (None-Few) H 11/21/16 05:40 - Clinical Findings Intake & Output: Intake & Output 11/24/16 11/24/16 11/24/16 07:59 15:59 23:59 Intake Total 50 / 50 Output Total 300 / 300 Balance -250 / -250 Weight 95.481 kg - Attending Attestation I examined this patient and my medical decision-making was reviewed with the VETERANS' COORDINATOR/PA/Advanced Practice Nurse/Resident Physician. I agree with the documented findings, disposition and treatment plan as described except to the extent set forth below. Patient seen and examined. Labs, radiology, chart personally reviewed. Agree with resident's history and physical, assessment, plan with following comments: ENROLLMENT SERVICES VICE PRESIDENT: Patient follows commands, Pulmonary: Acceptable oxygenation and ventilation. She is feeling much better today and agree with discharge home. She can follow up as outpatient and follow up with her ENT in [place]. Cardiovascular: stable Thanks for the consult.
[2016-11-24] MEDS ORDERED: predniSONE 20 MG TABLET PO SCH (09:00)
[2016-11-24] MEDS: clonazePAM 0.5 MG TABLET PO SCH (09:01)
[2016-11-24] MEDS: rOPINIRole 1 MG TABLET PO SCH (09:01)
[2016-11-24] MEDS: Aspirin 81 MG TAB.CHEW PO SCH (09:01)
[2016-11-24] MEDS: Furosemide 20 MG TABLET PO SCH (09:01)
[2016-11-24] MEDS: Insulin LISPRO 300 UNITS/3 ML VIAL SQ SCH ×2 (09:02→12:23)
--- NOTE | 2016-11-24 11:48 | Discharge Summary ---
Date of Encounter: 11/24/16 Time of Encounter: 11:45 - Discharge Diagnosis (1) Acute respiratory failure with hypoxia Priority: Primary Status: Acute (2) Asthma with exacerbation Priority: Secondary Status: Acute Qualifiers: Asthma severity: unspecified severity Qualified Code(s): J45.901 - Unspecified asthma with (acute) exacerbation - Discharge Medications Prescriptions: Levofloxacin [Levaquin] 750 mg PO DAILY #4 tablet Montelukast [Singulair] 10 mg PO HS #30 tablet PredniSONE 40 mg PO DAILY 5 Days Home Medications: BuPROPion [Wellbutrin] 100 mg PO BID 09/20/15 [History] Lisinopril [Zestril] 10 mg PO DAILY 09/20/15 [History] Ropinirole HCl [Requip] 2 mg PO TID 09/20/15 [History] Simvastatin [Zocor] 20 mg PO HS 09/20/15 [History] Albuterol Sulfate [Ventolin Hfa] 1 - 2 puff IH Q4-6H PRN 10/17/15 [History] Oxygen 2 l NS AD 10/17/15 [History] ClonazePAM [Klonopin] 0.25 mg PO BID #14 tablet 11/03/15 [Rx] Ipratropium/Albuterol Neb [Duoneb] 3 ml IH [id number] #60 inhsol 11/03/15 [Rx] Aspirin 81 mg PO DAILY 03/10/16 [History] Cholecalciferol (D-3) [Vitamin D] 1,000 unit PO DAILY 03/10/16 [History] Furosemide [Lasix] 20 mg PO DAILY #30 tablet 03/17/16 [Rx] Potassium Chloride [K-Tab ER] 20 meq PO DAILY #30 tablet.er 03/17/16 [Rx] Omeprazole [PriLOSEC] 40 mg PO DAILY 05/20/16 [History] Budesonide/Formoterol 160/4.5 [Symbicort 160/4.5] 2 puff IH BIDR 11/21/16 [ History] Levofloxacin [Levaquin] 750 mg PO DAILY #4 tablet 11/24/16 [Rx] Montelukast [Singulair] 10 mg PO HS #30 tablet 11/24/16 [Rx] PredniSONE 40 mg PO DAILY 5 Days 11/24/16 [Rx] Allergies/Adverse Reactions: Allergies No Known Allergies Allergy (Verified 10/27/15 19:21) Date of admission: 11/21/16 10:39 Primary care physician: Dm Mcclelland MD Consults: 11/22/16 14:32 Consult to Speech Therapy [CONS] Routine Comment: Evaluate, develop and implement POC Reason for Consult: vocal cord dysfunction Call Completed: No 11/23/16 10:41 Consult to Pulmonology [CONS] Routine Consulting Provider: [facility]anne Reason for Consult: asthma exacerbation Call Completed: Yes Discharging clinician: Reece Anand Anticipated date of discharge: 11/24/16 - Patient Status Disposition: Home Health Service Condition: Fair Functional capacity at discharge: uses cane/walker - Discharge Instructions Follow Up With: Dm Mcclelland MD [Primary Care Provider] - 12/02/16 10:00 am (Please follow up as schedule...) Additional Instructions: Follow up with ENT - Diet and Activity Activity: increase activity as tolerated Diet: advance to your usual diet Interval History: Ms. Ga is a 76 year old female with a past medical history of diastolic CHF, chronic respiratory failure, CKD3 admitted to this hospital back on May 2016 was brought to the emergency room by EMS due to progressive difficulty breathing. According to the EMS documents the patient saturation of oxygen dropped to the 40s. Patient says that for the past 24 hours she has been feeling worse. Denies any sick contacts but has been bringing up yellowish phlegm on and off. The chest x-ray shows bilateral parahiliar opacities concerning for possible pneumonia. Done in the emergency room, she was given Levaquin, vancomycin, Zosyn, Lasix and nitroglycerin. The patient was started also on a BiPAP and is feeling better at the moment. Initially her blood pressure was in the 170s and then he dropped down to 99/59. Heart rate was 118 White blood cell count 22.3 creatinine has increased from 0.95 up to 1.19 lactic acid was 5.6. Patient is able to speak in full sentences at the moment. According to prior notes she used to have recurrent asthma exacerbations but she was told that actually her problem was coming from her vocal cords which is not exactly clear. Denies any fevers. Hospital course: Ms. Ga is a 76 year old female, she s stable, tolerating room air, no fever, not in distress, has improved clinicaly, plan is for discharge home today , she agreed - Continue to wean oxygen requirements as tolerated. - Continue Duonebs and Albuterol nebulizer as scheduled. - Continue by mouth prednisone for a total 5 days. - Continue Montelukast 10mg po HS. - Complete 5 days of Levaquin - Patient should follow up with ENT post hospitalization to evaluate for vocal cord dysfunction. If this is ruled out then her recurrent episodes will likely be related to reactive airway disease. - Time Spent with Patient Total time spent providing and/or coordinating discharge services: Greater than 30 minutes - Constitutional Vitals: Temp Pulse Resp BP Pulse Ox 97.5 F L 78 16 145/73 93 11/24/16 07:58 11/24/16 07:58 11/24/16 10:53 11/24/16 07:58 11/24/16 10:53 General appearance: Present: cooperative, A&O X 3, no acute distress, obese, answers questions appropriately - Head Head exam: Present: atraumatic, normocephalic - Eye Eye exam: Present: PERRL, conjuntiva pink, sclera anicteric Pupils: Present: PERRL - Neck Neck exam general surgery: Present: supple, trachea midline. Absent: lymphadenopathy - Respiratory Respiratory exam: Present: CTAB. Absent: accessory muscle use, rales, rhonchi, wheezes - Cardiovascular Cardiovascular exam: Present: RRR, +S1, +S2. Absent: diastolic murmur, gallop, rubs, systolic murmur - GI/Abdominal GI/Abdominal exam: Present: normal bowel sounds, soft, no peritoneal signs. Absent: distended, tenderness - Extremities Exam Extremities exam: Present: warm, radial pulses palpable and symetrical. Absent : calf tenderness, cyanotic, pedal edema - Neurological Exam Neurological exam: Present: CN II-XII intact, oriented X3, no focal deficits. Absent: pronater drift, facial droop, speech deficit - Skin Skin exam: Present: dry, intact
--- NOTE | 2016-11-24 11:56 | Physician Discharge Referral ---
Home Health/Hosp Referral Info Transfer to: Home Health - Diagnosis (1) Acute respiratory failure with hypoxia Status: Acute (2) Asthma with exacerbation Status: Acute - Respiratory Orders Oxygen / L per min (3) Smoking Cessation: Smoking cessation has been advised. For more information, call the [place] Tobacco Quit Line at 0-322-SDIR-NOW. - Diet/Nutrition Diet/Nutrition Orders: Cardiac - Services Needed Following services are medically necessary services: Nursing, Home Health Aide - Transfer Medications Prescriptions: Levofloxacin [Levaquin] 750 mg PO DAILY #4 tablet Montelukast [Singulair] 10 mg PO HS #30 tablet PredniSONE 40 mg PO DAILY 5 Days Home Medications: BuPROPion [Wellbutrin] 100 mg PO BID 09/20/15 [History] Lisinopril [Zestril] 10 mg PO DAILY 09/20/15 [History] Ropinirole HCl [Requip] 2 mg PO TID 09/20/15 [History] Simvastatin [Zocor] 20 mg PO HS 09/20/15 [History] Albuterol Sulfate [Ventolin Hfa] 1 - 2 puff IH Q4-6H PRN 10/17/15 [History] Oxygen 2 l NS AD 10/17/15 [History] ClonazePAM [Klonopin] 0.25 mg PO BID #14 tablet 11/03/15 [Rx] Ipratropium/Albuterol Neb [Duoneb] 3 ml IH [id number] #60 inhsol 11/03/15 [Rx] Aspirin 81 mg PO DAILY 03/10/16 [History] Cholecalciferol (D-3) [Vitamin D] 1,000 unit PO DAILY 03/10/16 [History] Furosemide [Lasix] 20 mg PO DAILY #30 tablet 03/17/16 [Rx] Potassium Chloride [K-Tab ER] 20 meq PO DAILY #30 tablet.er 03/17/16 [Rx] Omeprazole [PriLOSEC] 40 mg PO DAILY 05/20/16 [History] Budesonide/Formoterol 160/4.5 [Symbicort 160/4.5] 2 puff IH BIDR 11/21/16 [ History] Levofloxacin [Levaquin] 750 mg PO DAILY #4 tablet 11/24/16 [Rx] Montelukast [Singulair] 10 mg PO HS #30 tablet 11/24/16 [Rx] PredniSONE 40 mg PO DAILY 5 Days 11/24/16 [Rx] Allergies/Adverse Reactions: Allergies No Known Allergies Allergy (Verified 10/27/15 19:21) Certification: Further, I certify that my clinical findings support that this patient is homebound (i.e. absences from home require considerable and taxing effort and are for medical reasons or confucianism services or infrequently or short duration when for other reasons) because: Homebound Reason: Severity of cardiac or pulmonary status limits activity tolerance Attestation: My signature below is to certify that this patient is under my care and that I, or nurse practitioner, or a physician's assistant professor of surgery working with me, has a face-to -face encounter with this patient.
[2016-11-25] MEDS ORDERED: *HR* Enoxaparin 40 MG/0.4 ML SYRINGE SQ SCH (06:00)
== END 2016-11-24 16:04 | disposition home health service (06) | DRG 871 ==
LOC: 2ANU 04:31 → EMEROO 04:31 → 2ANU 08:42 → SUATTDRO 10:39
PROVIDERS: ADMIT Internal Medicine; ATTEND Internal Medicine

== ENCOUNTER 2018-04-05 08:36 | Observation (INO) ==
[2018-04-05] MEDS ORDERED: Ipratropium/Albuterol Neb 3 ML IH ONE (08:38)
[2018-04-05] MEDS ORDERED: methylPREDNISolone 125 MG/2 ML VIAL IVP ONE (08:38)
[2018-04-05 09:11] LABS: Basophils % 0.1 %; Eosinophils # 0.1 K/mcL (0.0-0.6); Eosinophils % 0.6 %; Hematocrit 37.7 % (35.3-44.9); Hemoglobin 12.5 g/dL (11.5-15.4); Immature Granulocytes % 0.6 % (0-4); Lymphocytes # 2.3 K/mcL (0.6-4.6); Lymphocytes % 15.9 %; Mean Corpuscular HGB Conc 33.2 g/dL (31.6-35.5); Mean Corpuscular Hemoglobin 31.6 pg (28.0-33.3); Mean Corpuscular Volume 95.4 fL (83.0-100.0); Monocytes % 7.1 %; Neutrophils # 10.7 K/mcL (1.6-8.9); Platelet Count 128 K/mcL (140-400); Red Blood Count 3.95 M/mcL (3.82-4.97); Red Cell Distribution Width 13.7 % (11.5-14.5); Segmented Neutrophils % 75.7 %
--- NOTE | 2018-04-05 09:14 | Emergency Department Note ---
Disposition Clinical Impression: CHF (congestive heart failure) Qualifiers: Qualified Code(s): I50.9 - Heart failure, unspecified Disposition: Admitted As Inpatient Condition: Undetermined General Adult HPI - General Chief complaint: ED Shortness of Breath/Dyspnea Stated complaint: TYLER Time Seen by Provider: 04/05/18 08:38 Source: EMS Limitations: no limitations Nursing Notes Reviewed: Yes Vital Signs Reviewed: Yes - History of Present Illness HPI Narrative: This is a 77-year-old female with concern for dyspnea. She does not a history of asthma. She actually describes that her dyspnea has become worse over the last couple of days. She has no productive sputum. She denies fever or chills. She was wheezing on EMS arrival may did provide breathing treatment. She had mild hypoxia resolved with supplemental oxygen. She is without chest pain on arrival. General: No acute distress HEENT: Pupils equal and reactive to light, extraoccular muscle movement is normal, TMS are clear bilaterally. Heart: RRR, No murmor rub or gallop Lungs: Rales at the bases bilaterally ABD: SNT, no focal areas or tenderness, no guarding or rebound tenderness. Extremities: No cyanosis, clubbing or edema Neuro: CN 2-12 in tact, no focal deficit. strength 5/5. 12 point review systems is completed and pertinent positives are discussed in history of present illness Medical decision-making Findings consistent with dyspnea. Suspect some degree of heart failure. We will provide diuresis, admission for possible echocardiogram, heart failure maximization and management. Pain Scale: 0 - Related Data Home Medications Medication Instructions Recorded Confirmed BuPROPion [Wellbutrin] 100 mg PO BID 09/20/15 04/05/18 Lisinopril [Zestril] 10 mg PO DAILY 09/20/15 04/05/18 Ropinirole HCl [Requip] 2 mg PO TID 09/20/15 04/05/18 Simvastatin [Zocor] 20 mg PO HS 09/20/15 04/05/18 Albuterol Sulfate [Ventolin Hfa] 2 puff IH Q4H PRN 10/17/15 04/05/18 Oxygen 2 l NS AD 10/17/15 04/05/18 Aspirin 81 mg PO DAILY 03/10/16 04/05/18 Cholecalciferol (D-3) [Vitamin D] 1,000 unit PO DAILY 03/10/16 04/05/18 Omeprazole [PriLOSEC] 20 mg PO DAILY 05/20/16 04/05/18 Budesonide/Formoterol 160/4.5 2 puff IH BIDR 11/21/16 04/05/18 [Symbicort 160/4.5] Albuterol Neb [Proventil Neb] 2.5 mg IH Q8H PRN 04/05/18 04/05/18 Fluticasone Propionate Nasal 2 spr NS DAILY PRN 04/05/18 04/05/18 [Flonase] Nystatin Cream [Mycostatin Cream] 1 appl TP BID 04/05/18 04/05/18 Nystatin [Nystatin Suspension] 4 ml PO QID 04/05/18 04/05/18 Paroxetine [Paxil] 20 mg PO DAILY 04/05/18 04/05/18 predniSONE [PredniSONE] 10 mg PO AD 04/05/18 04/05/18 Previous Rx's Medication Instructions Recorded Potassium Chloride [K-Tab ER] 20 meq PO DAILY #30 tablet.er 03/17/16 Ipratropium/Albuterol Neb [Duoneb] 3 ml IH Q4HR #30 vial.neb 07/18/17 Allergies Allergy/AdvReac Type Severity Reaction Status Date / Time No Known Allergies Allergy Verified 02/11/17 04:00 All systems ED: reviewed and negative except as stated. Past Medical History - Past Medical History Medical history: Reports: asthma, hyperlipidemia, hypertension Surgical history: Reports: , cholecystectomy, knee replacement, orthopedic, other, other Psychiatric history: Reports: anxiety, panic disorder - Social History Smoking Status: Never smoker Smokeless Tobacco Status: No Alcohol use: Reports: none Drug use: Reports: none Physical Exam - General Limitations: no limitations General appearance: alert, in no apparent distress Course Vital Signs Temperature 99.1 F 04/05/18 08:38 Pulse Rate 76 04/05/18 08:38 Respiratory Rate 22 04/05/18 08:38 Blood Pressure 163/93 04/05/18 08:38 O2 Sat by Pulse Oximetry 93 04/05/18 08:38 Temperature 100.7 F H 04/05/18 14:38 Pulse Rate 62 04/05/18 14:38 Respiratory Rate 17 04/05/18 15:47 Blood Pressure 152/78 04/05/18 14:38 O2 Sat by Pulse Oximetry 97 04/05/18 15:47 Oxygen Delivery Oxygen Delivery Nasal Cannula Medical Decision Making - MDM Narrative Medical decision making narrative: EKG shows sinus rhythm at a rate of 73 bpm with normal axis, normal intervals, nonspecific ST segment, nonspecific ECG - Lab Data Result diagrams: 04/05/18 08:58 04/05/18 08:58 Lab Results 04/05/18 04/05/18 04/05/18 Range/Units 08:58 08:58 08:58 WBC 14.1 H (4.3-11.1) K/mcL RBC 3.95 (3.82-4.97) M/mcL Hgb 12.5 (11.5-15.4) g/dL Hct 37.7 (35.3-44.9) % MCV 95.4 (83.0-100.0) fL MCH 31.6 (28.0-33.3) pg MCHC 33.2 (31.6-35.5) g/dL RDW 13.7 (11.5-14.5) % Plt Count 128 L (140-400) K/mcL MPV 11.0 (9.4-12.4) fL Immature Gran % 0.6 (0-4) % Seg Neutrophils % 75.7 % Lymphocytes % 15.9 % Monocytes % 7.1 % Eosinophils % 0.6 % Basophils % 0.1 % Neutrophils # 10.7 H (1.6-8.9) K/mcL Lymphocytes # 2.3 (0.6-4.6) K/mcL Monocytes # 1.0 (0.0-1.3) K/mcL Eosinophils # 0.1 (0.0-0.6) K/mcL Basophils # 0.0 (0.0-0.2) K/mcL D-Dimer 581 H (0-500) ng/mLFEU Sodium 139 (136-145) mEq/L Potassium 3.5 (3.5-5.1) mEq/L Chloride 106 (98-107) mEq/L Carbon Dioxide 27 (23-29) mEq/L BUN 22 (8-23) mg/dL Creatinine 0.88 (0.60-1.20) mg/dL Est GFR ( Amer) > 60 (> 60) Est GFR (Non-Af Amer) > 60 (> 60) BUN/Creatinine Ratio 25 (6-26) Glucose 86 (70-105) mg/dL Calculated Osmolality 291 (280-300) Lactic Acid (0.5-2.2) mmol/L Calcium 8.7 (8.6-10.3) mg/dL Troponin I < 0.03 (< 0.04) ng/mL B-Natriuretic Peptide (Less than 100) pg/mL 04/05/18 04/05/18 Range/Units 08:58 09:02 WBC (4.3-11.1) K/mcL RBC (3.82-4.97) M/mcL Hgb (11.5-15.4) g/dL Hct (35.3-44.9) % MCV (83.0-100.0) fL MCH (28.0-33.3) pg MCHC (31.6-35.5) g/dL RDW (11.5-14.5) % Plt Count (140-400) K/mcL MPV (9.4-12.4) fL Immature Gran % (0-4) % Seg Neutrophils % % Lymphocytes % % Monocytes % % Eosinophils % % Basophils % % Neutrophils # (1.6-8.9) K/mcL Lymphocytes # (0.6-4.6) K/mcL Monocytes # (0.0-1.3) K/mcL Eosinophils # (0.0-0.6) K/mcL Basophils # (0.0-0.2) K/mcL D-Dimer (0-500) ng/mLFEU Sodium (136-145) mEq/L Potassium (3.5-5.1) mEq/L Chloride (98-107) mEq/L Carbon Dioxide (23-29) mEq/L BUN (8-23) mg/dL Creatinine (0.60-1.20) mg/dL Est GFR ( Amer) (> 60) Est GFR (Non-Af Amer) (> 60) BUN/Creatinine Ratio (6-26) Glucose (70-105) mg/dL Calculated Osmolality (280-300) Lactic Acid 1.1 (0.5-2.2) mmol/L Calcium (8.6-10.3) mg/dL Troponin I (< 0.04) ng/mL B-Natriuretic Peptide 192 H (Less than 100) pg/mL
[2018-04-05 09:38] LABS: Troponin I < 0.03 ng/mL (< 0.04)
[2018-04-05 09:41] LABS: BUN/Creatinine Ratio 25 (6-26); Blood Urea Nitrogen 22 mg/dL (8-23); Calcium 8.7 mg/dL (8.6-10.3); Carbon Dioxide 27 mEq/L (23-29); Chloride 106 mEq/L (98-107); Glucose 86 mg/dL (70-105); Osmolality,Calculated 291 (280-300); Potassium 3.5 mEq/L (3.5-5.1); Sodium 139 mEq/L (136-145); eGFR For Non-African Americans > 60 (> 60)
[2018-04-05] MEDS ORDERED: Furosemide 40 MG/4 ML VIAL IVP ONE (09:46)
--- NOTE | 2018-04-05 13:04 | Electrocardiograph Report ---
[facility] Test Date: 2018-04-05 Pat Name: Nora Ga Department: [id number] Room: Gender: F Ultrasound Coordinator: : 1940 Requested By: Kyle Vazquez Order Number: [id number] Reading MD: Jackson Cunningham Measurements Intervals [place] Rate: 73 P: 17 DC: 143 QRS: 22 QRSD: 92 T: 27 QT: 401 QTc: 442 Interpretive Statements Sinus rhythm Electronically Signed On 04-05-2018 13:02:59 EDT by Jackson Cunningham
--- NOTE | 2018-04-05 13:07 | Emergency Department Note ---
START Narrative - START START: EKG shows heart rate of 73 bpm, sinus rhythm, normal axis, nonspecific ST segments, nonspecific ECG
[2018-04-05] MEDS ORDERED: Fluticasone Propionate Nasal 50 MCG/SPRAY BOTTLE NS PRN (13:16)
[2018-04-05] MEDS ORDERED: Naloxone 0.4 MG/ML INJ IVP PRN (13:21)
--- NOTE | 2018-04-05 14:01 | Internal Med History&Physical ---
Date of Encounter: 04/05/18 Time of Encounter: 13:59 Internal Medicine - H&P: HPI Chief complaint: Shortness of breath Admitted From: Home Plans for Post Hospital Care: Home History of present illness: Ms. Ga is a 77 year old female with PMH of severe persistent asthma on immunomodulators, CHFpEF, GERD, HTN, who presented to the ER complaining of SON She reports she was seen by Dr. Navarro one week ago and was told she might be having 'early PNA" and was given antibiotics. She reports she develoepd acute onset SOB which started last night but continued till this a.m such that she was unable to perform her daily activities She denies any new changes in sputum production, no fever or chills, no cough that is worse than her baseline, she also does not have sick contacts, rhinorrhea of facial pain. She denies orthopnea but states "my children have been elevating the head of my bed", she deneis PND. Her O2 requirement is at her baseline without increasing requirement She denies chest pain, however, endorsed ankle edema that is not improving despite taking own dose of laseix She denies or GI symptoms, no neurologic symptoms, no skin rash Work up in ER significant for leukocytosis , Chem at abseline, Elevated D-dimer , as well as BNP 192, Troponin is negative and EKG is NSR with no ST segment changes CXR showed possible pulm edema vs bronchiolitis Addendum: the patient developed a fever on the floor, we will obtain cultures and treat for PNA, computer tester will be consulted Past Med Surg Social Fam HX - Past Medical History Medical history: asthma, hyperlipidemia, hypertension Additional medical history: skin ca. vocal cord dysfunction Psychiatric history: anxiety, panic disorder - Past Surgical History Surgical History: , cholecystectomy, knee replacement, orthopedic, other, other Additional surgical history: carpal tunnel release R. knee replacement bilateral - Social History Smoking Status: Never smoker Smokeless Tobacco Status: No Alcohol use: none Drug use: none - Family History Mother Living Status: Hx Family Cardiac Disorders: Yes Hx Family Respiratory Disorders: Yes Father Living Status: Hx Family Cardiac Disorders: Yes Internal Medicine - H&P: Meds BuPROPion [Wellbutrin] 100 mg PO BID 09/20/15 [History] Lisinopril [Zestril] 10 mg PO DAILY 09/20/15 [History] Ropinirole HCl [Requip] 2 mg PO TID 09/20/15 [History] Simvastatin [Zocor] 20 mg PO HS 09/20/15 [History] Albuterol Sulfate [Ventolin Hfa] 2 puff IH Q4H PRN 10/17/15 [History] Oxygen 2 l NS AD 10/17/15 [History] Aspirin 81 mg PO DAILY 03/10/16 [History] Cholecalciferol (D-3) [Vitamin D] 1,000 unit PO DAILY 03/10/16 [History] Potassium Chloride [K-Tab ER] 20 meq PO DAILY #30 tablet.er 03/17/16 [Rx] Omeprazole [PriLOSEC] 20 mg PO DAILY 05/20/16 [History] Budesonide/Formoterol 160/4.5 [Symbicort 160/4.5] 2 puff IH BIDR 11/21/16 [ History] Ipratropium/Albuterol Neb [Duoneb] 3 ml IH Q4HR #30 vial.neb 07/18/17 [Rx] Albuterol Neb [Proventil Neb] 2.5 mg IH Q8H PRN 04/05/18 [History] Fluticasone Propionate Nasal [Flonase] 2 spr NS DAILY PRN 04/05/18 [History] Nystatin Cream [Mycostatin Cream] 1 appl TP BID 04/05/18 [History] Nystatin [Nystatin Suspension] 4 ml PO QID 04/05/18 [History] Paroxetine [Paxil] 20 mg PO DAILY 04/05/18 [History] predniSONE [PredniSONE] 10 mg PO AD 04/05/18 [History] 3 Allergy/AdvReac Type Severity Reaction Status Date / Time No Known Allergies Allergy Verified 02/11/17 04:00 All Systems PM: A 10-system review of systems was performed and is negative for pertinent findings except as documented above in the HPI. - Constitutional Constitutional: as per HPI - EENT Eyes: as per HPI Ears: as per HPI Nose, mouth and throat: as per HPI - Cardiovascular Cardiovascular ROS IM: as per HPI - Respiratory Respiratory: as per HPI - Gastrointestinal Gastrointestinal: as per HPI - Genitourinary Genitourinary: as per HPI - Musculoskeletal Musculoskeletal ROS IM: as per HPI - Integumentary Integumentary IM: as per HPI - Neurological Neurological ROS: as per HPI - Hematologic/Lymphatic Hematologic/Lymphatic: as per HPI - Constitutional Vitals: Temp Pulse Resp BP Pulse Ox 99.1 F 72 16 178/59 95 04/05/18 08:38 04/05/18 11:32 04/05/18 11:32 04/05/18 11:32 04/05/18 11:32 General appearance: Present: A&O X 3, morbidly obese, pleasant Exam: see detailed exam below - Head Head exam: Present: atraumatic, normocephalic Additional comments: alopecia - Eye Eye exam: Present: PERRL, conjuntiva pink, sclera anicteric Pupils: Present: PERRL - Neck Neck exam general surgery: Present: supple, trachea midline. Absent: lymphadenopathy - Respiratory Respiratory exam: Present: decreased breath sounds, rales - Cardiovascular Cardiovascular exam: Present: RRR, +S1, +S2. Absent: diastolic murmur, gallop, rubs, systolic murmur - GI/Abdominal GI/Abdominal exam: Present: normal bowel sounds, soft, no peritoneal signs. Absent: distended, tenderness - Extremities Exam Extremities exam: Present: pedal edema (1+ piting pedal edema bilaterally), warm , radial pulses palpable and symmetrical. Absent: calf tenderness, cyanotic - Neurological Exam Neurological exam: Present: alert, CN II-XII intact, oriented X3, no focal deficits. Absent: pronater drift, facial droop, speech deficit - Skin Skin exam: Present: dry, intact Internal Med - H&P Results - Labs CBC & Chem 7: 04/05/18 08:58 04/05/18 08:58 - Assessment and plan (1) CHF exacerbation Current Visit: Yes Status: Acute Assessment and plan: Patient with known diastolic CHF ECHO from 2017 noted for preserved EF Presented with SOB and LE swelling, no worsening cough or fever or chills Patient with leukocytosis likely due to steroids use BNP 192, CXR equivocal for pulm edema O2 sat at baseline Will continue lasix IV dailyStrict I and OS Fluid restriction diet Daily weight ECHO ordered Rpt CXR a.m Qualifiers: Heart failure type: diastolic Qualified Code(s): I50.33 - Acute on chronic diastolic (congestive) heart failure (2) PNA (pneumonia) Current Visit: Yes Status: Suspected Assessment and plan: Suspected Patient with fever, SOB and bronchiolitis on CXR Also suspicious for pulm edema No tachycardia, no tachypnea, no hypoxia, does have WBC of 14 She takes hizentra weekly and is immunocompromised Will start on Ceftriaxone and Azithromycin Send sputum, blood culture and resp panel O2 at this time is at baseline home O2 requirement Continue to monitor Qualifiers: Laterality: bilateral Lung location: unspecified part of lung Qualified Code(s): J18.9 - Pneumonia, unspecified organism (3) DVT prophylaxis Current Visit: Yes Status: Acute Assessment and plan: SQ heparin (4) GERD (gastroesophageal reflux disease) Current Visit: Yes Status: Chronic Assessment and plan: continue home meds Qualifiers: Esophagitis presence: without esophagitis Qualified Code(s): K21.9 - Gastro -esophageal reflux disease without esophagitis (5) HLD (hyperlipidemia) Current Visit: Yes Status: Chronic Assessment and plan: continue home meds Qualifiers: Hyperlipidemia type: unspecified Qualified Code(s): E78.5 - Hyperlipidemia , unspecified (6) HTN (hypertension) Current Visit: Yes Status: Chronic Assessment and plan: continue home meds Qualifiers: Hypertension type: essential hypertension Qualified Code(s): I10 - Essential (primary) hypertension (7) NACHO (obstructive sleep apnea) Current Visit: Yes Status: Chronic Assessment and plan: CPAP at bedtime (8) CAD (coronary artery disease) Current Visit: Yes Status: Chronic Assessment and plan: continue home meds Qualifiers: Coronary Disease-Associated Artery/Lesion type: [place] artery [place] vs. transplanted heart: [place] heart Associated angina: without angina Qualified Code(s): I25.10 - Atherosclerotic heart disease of [place] coronary artery without angina pectoris (9) Uncontrolled severe persistent asthma Current Visit: Yes Status: Chronic Assessment and plan: Continue home meds No wheezing at this time, and no signs of exacerbation Continue P2 and close monitoring (10) Chronic respiratory failure with hypoxia Current Visit: Yes Status: Chronic Assessment and plan: Continue O2 at home dose 2.5 L per min (11) Immune deficiency disorder Current Visit: Yes Status: Acute Assessment and plan: Patient reports immune deficiency disorder for which she takes Hizentra weekly Family to bring medication in for administration Will consult allergy/Immunology She takes hers SQ, and not as an infusion - Time Spent With Patient Total time spent is greater than 50% in coordination of care (as documented) at patient's floor/unit and/or counseling patient:
[2018-04-05] MEDS: rOPINIRole 1 MG TABLET PO SCH ×2 (15:02→21:22)
[2018-04-05] MEDS: Ipratropium/Albuterol Neb 3 ML IH SCH ×3 (15:46→23:35)
[2018-04-05] MEDS: Nystatin SUSP 5 ML UD.LIQ PO SCH ×2 (16:04→21:22)
[2018-04-05 17:49] LABS: Adenovirus Not Detected (Not Detect); Bordetella Pertussis Not Detected (Not Detect); Chlamydophila pneumoniae Not Detected (Not Detect); Coronavirus 229E Not Detected (Not Detect); Coronavirus HKU1 Not Detected (Not Detect); Coronavirus NL63 Not Detected (Not Detect); Coronavirus OC43 Not Detected (Not Detect); Human Metapneumovirus Not Detected (Not Detect); Human Rhinovirus/Enterovirus Not Detected (Not Detect); Influenza A Subtype 2009 H1 Not Detected (Not Detect); Influenza A Untypeable Not Detected (Not Detect); Influenza B Not Detected (Not Detect); Mycoplasma pneumoniae Not Detected (Not Detect); Parainfluenza Virus 1 Not Detected (Not Detect); Parainfluenza Virus 2 Not Detected (Not Detect); Parainfluenza Virus 3 Not Detected (Not Detect); Parainfluenza Virus 4 Not Detected (Not Detect); Respiratory Syncytial Virus Not Detected (Not Detect)
[2018-04-05] MEDS: Budesonide/Formoterol 160/4.5 1 PUFF INH IH SCH (19:37)
[2018-04-05] MEDS ORDERED: Perflutren Lipid Microsphere 1.3 ML in 0.9 % Sodium Chloride 8.7 ML IVP ONE (21:16)
[2018-04-05] MEDS: cefTRIAXone 1,000 MG in Water for inj. (sterile) 20 ML 10 ML IVP SCH (21:21)
[2018-04-05] MEDS: Azithromycin 500 MG in D5% in Water 250 ML IVPB SCH (21:21)
[2018-04-05] MEDS: Nystatin Cream 15 GM TUBE TP SCH (21:22)
[2018-04-06] MEDS: Ipratropium/Albuterol Neb 3 ML IH SCH ×6 (03:31→23:29)
[2018-04-06 05:53] LABS: Basophils % 0.1 %; Hematocrit 38.7 % (35.3-44.9); Hemoglobin 13.1 g/dL (11.5-15.4); Immature Granulocytes % 0.5 % (0-4); Lymphocytes # 0.6 K/mcL (0.6-4.6); Lymphocytes % 4.9 %; Mean Corpuscular HGB Conc 33.9 g/dL (31.6-35.5); Mean Corpuscular Hemoglobin 32.7 pg (28.0-33.3); Mean Corpuscular Volume 96.5 fL (83.0-100.0); Mean Platelet Volume 11.4 fL (9.4-12.4); Monocytes # 0.5 K/mcL (0.0-1.3); Monocytes % 4.4 %; Neutrophils # 11.1 K/mcL (1.6-8.9); Platelet Count 125 K/mcL (140-400); Red Blood Count 4.01 M/mcL (3.82-4.97); Red Cell Distribution Width 13.4 % (11.5-14.5); Segmented Neutrophils % 90.1 %
[2018-04-06] MEDS: Budesonide/Formoterol 160/4.5 1 PUFF INH IH SCH ×2 (07:32→19:40)
[2018-04-06 07:41] LABS: BUN/Creatinine Ratio 34 (6-26); Blood Urea Nitrogen 27 mg/dL (8-23); Calcium 9.3 mg/dL (8.6-10.3); Carbon Dioxide 27 mEq/L (23-29); Chloride 103 mEq/L (98-107); Glucose 177 mg/dL (70-105); Osmolality,Calculated 299 (280-300); Potassium 3.5 mEq/L (3.5-5.1); Sodium 140 mEq/L (136-145); eGFR For Non-African Americans > 60 (> 60)
[2018-04-06] MEDS: cefTRIAXone 1,000 MG in Water for inj. (sterile) 20 ML 10 ML IVP SCH (08:20)
[2018-04-06] MEDS: Furosemide 40 MG/4 ML VIAL IVP SCH (08:20)
[2018-04-06] MEDS: rOPINIRole 1 MG TABLET PO SCH ×3 (08:21→19:55)
[2018-04-06] MEDS: Nystatin SUSP 5 ML UD.LIQ PO SCH ×4 (08:21→19:54)
[2018-04-06] MEDS: Aspirin 81 MG TAB.CHEW PO SCH (08:21)
[2018-04-06] MEDS: Cholecalciferol (D-3) 1,000 UNIT TABLET PO SCH (08:21)
[2018-04-06] MEDS: Nystatin Cream 15 GM TUBE TP SCH ×2 (08:31→19:55)
--- NOTE | 2018-04-06 10:01 | Internal Med Progress Note ---
Hospitalist Progress Note - Encounter Date of Encounter: 04/06/18 Time of Encounter: 10:00 - Subjective Interval History: Seen and examined at bedside Reports some improvement, no sputum production CXR today shows improvement in edema/infiltrates Patient has no new complains - Exam Vitals: Temp Pulse Resp BP Pulse Ox 97.9 F 54 18 131/67 98 04/06/18 07:50 04/06/18 07:50 04/06/18 07:50 04/06/18 07:50 04/06/18 07:50 Exam: Constitutional: No acute distress, Alert, morbidly obese Psych: Normal affect HEENT: NCAT, EOMI Neck: no neck stiffness Cardio: regular rate and rhythm, no m/g/r Resp: clear to auscultation bilaterally Chest: equal chest movt Abd: soft, non-tender/non distended, positive bowel sounds, no guarding/rebound/ rigidity Extremities: 1+ piting pedal edema bilaterally Neuro: no focal deficits appreciated, AAOX3 - Assessment and Plan (1) CHF exacerbation Current Visit: Yes Status: Acute Assessment and Plan: Patient with known diastolic CHF ECHO from 2017 noted for preserved EF Presented with SOB and LE swelling, no worsening cough or fever or chills Patient with leukocytosis likely due to steroids use BNP 192, CXR equivocal for pulm edema O2 sat at baseline Will continue lasix IV daily Strict I and OS Fluid restriction diet Daily weight ECHO noted for moderate LVDD, normal EF, no significant valvular dysfunction Rpt CXR done today shows improvement in interstitial infiltrates (2) PNA (pneumonia) Current Visit: Yes Status: Suspected Assessment and Plan: Suspected Patient with fever, SOB and bronchiolitis on CXR Also suspicious for pulm edema No tachycardia, no tachypnea, no hypoxia, does have WBC of 14 She takes hizentra weekly and is immunocompromised Continue Ceftriaxone and Azithromycin Follow sputum, blood culture Resp panel negative Leukocytosis improving O2 at this time is at baseline home O2 requirement Continue to monitor (3) DVT prophylaxis Current Visit: Yes Status: Acute Assessment and Plan: SQ heparin (4) GERD (gastroesophageal reflux disease) Current Visit: Yes Status: Chronic Assessment and Plan: continue home meds (5) HLD (hyperlipidemia) Current Visit: Yes Status: Chronic Assessment and Plan: continue home meds (6) HTN (hypertension) Current Visit: Yes Status: Chronic Assessment and Plan: continue home meds (7) NACHO (obstructive sleep apnea) Current Visit: Yes Status: Chronic Assessment and Plan: CPAP at bedtime (8) CAD (coronary artery disease) Current Visit: Yes Status: Chronic Assessment and Plan: continue home meds (9) Uncontrolled severe persistent asthma Current Visit: Yes Status: Chronic Assessment and Plan: Continue home meds No wheezing at this time, and no signs of exacerbation Continue O2 and close monitoring (10) Chronic respiratory failure with hypoxia Current Visit: Yes Status: Chronic Assessment and Plan: Continue O2 at home dose 2.5 L per min (11) Immune deficiency disorder Current Visit: Yes Status: Acute Assessment and Plan: Patient reports immune deficiency disorder for which she takes Hizentra weekly Family to bring medication in for administration Will consult allergy/Immunology non-emergently She takes hers SQ, and not as an infusion - Time Spent with Patient Total time spent is greater than 50% in coordination of care (as documented) at patient's floor/unit and/or counseling patient: Plan of Care Discussed with: patient Internal Medicine: Result - Labs CBC & Chem 7: 04/06/18 04:27 04/06/18 04:27 Labs: Short CBC 04/06/18 Range/Units 04:27 WBC 12.4 H (4.3-11.1) K/mcL Hgb 13.1 (11.5-15.4) g/dL Hct 38.7 (35.3-44.9) % Plt Count 125 L (140-400) K/mcL Neutrophils # 11.1 H (1.6-8.9) K/mcL BMP 04/06/18 04:27 Sodium 140 Potassium 3.5 Chloride 103 Carbon Dioxide 27 BUN 27 H Creatinine 0.79 Glucose 177 H Calcium 9.3 - ABG Interpretation ABG results: PT/INR, D-dimer D-Dimer 581 ng/mLFEU (0-500) H 04/05/18 08:58 - Impressions Impressions Chest X-Ray 04/06/18 06:00 IMPRESSION: Stable mild interstitial edema D/ / Nadia Rendon MD / Nadia Rendon MD Interpreting Provider: Nadia Rendon MD Consult Discharge Plan - Plan Referrals: Amber Wright, SURVEYOR INSTRUMENT ASSISTANT [Primary Care Provider] - (Your appointment has been requested. Our offices will call you with a follow up appointment. If you do not hear from us, feel free to call us and make an appointment after discharge. Thank You. ) (1) CHF exacerbation Qualifiers: Heart failure type: diastolic Qualified Code(s): I50.33 - Acute on chronic diastolic (congestive) heart failure (2) PNA (pneumonia) Qualifiers: Laterality: bilateral Lung location: unspecified part of lung Qualified Code (s): J18.9 - Pneumonia, unspecified organism (4) GERD (gastroesophageal reflux disease) Qualifiers: Esophagitis presence: without esophagitis Qualified Code(s): K21.9 - Gastro- esophageal reflux disease without esophagitis (5) HLD (hyperlipidemia) Qualifiers: Hyperlipidemia type: unspecified Qualified Code(s): E78.5 - Hyperlipidemia, unspecified (6) HTN (hypertension) Qualifiers: Hypertension type: essential hypertension Qualified Code(s): I10 - Essential (primary) hypertension (8) CAD (coronary artery disease) Qualifiers: Coronary Disease-Associated Artery/Lesion type: [place] artery [place] vs. transplanted heart: [place] heart Associated angina: without angina Qualified Code(s): I25.10 - Atherosclerotic heart disease of [place] coronary artery without angina pectoris
[2018-04-06] MEDS: Azithromycin 500 MG in D5% in Water 250 ML IVPB SCH (17:09)
[2018-04-06] MEDS ORDERED: Acetaminophen 325 MG TABLET PO ONE (23:39)
[2018-04-07] MEDS: Ipratropium/Albuterol Neb 3 ML IH SCH ×4 (04:11→16:08)
[2018-04-07 07:05] VITALS: BP 110/55
[2018-04-07 07:16] LABS: BUN/Creatinine Ratio 30 (6-26); Blood Urea Nitrogen 29 mg/dL (8-23); Carbon Dioxide 28 mEq/L (23-29); Chloride 103 mEq/L (98-107); Glucose 85 mg/dL (70-105); Osmolality,Calculated 295 (280-300); Potassium 3.7 mEq/L (3.5-5.1); Sodium 140 mEq/L (136-145); eGFR For Non-African Americans 55 (> 60)
[2018-04-07] MEDS: Budesonide/Formoterol 160/4.5 1 PUFF INH IH SCH (07:35)
[2018-04-07] MEDS: Nystatin SUSP 5 ML UD.LIQ PO SCH ×2 (07:55→12:49)
[2018-04-07] MEDS: Nystatin Cream 15 GM TUBE TP SCH (07:55)
[2018-04-07] MEDS: rOPINIRole 1 MG TABLET PO SCH (07:56)
[2018-04-07] MEDS: Cholecalciferol (D-3) 1,000 UNIT TABLET PO SCH (07:56)
[2018-04-07] MEDS: Furosemide 40 MG/4 ML VIAL IVP SCH (07:56)
[2018-04-07] MEDS: Aspirin 81 MG TAB.CHEW PO SCH (07:56)
[2018-04-07 08:19] LABS: Calcium 8.7 mg/dL (8.6-10.3)
[2018-04-07 08:26] LABS: Basophils % 0.2 %; Eosinophils # 0.2 K/mcL (0.0-0.6); Eosinophils % 1.6 %; Hemoglobin 12.5 g/dL (11.5-15.4); Immature Granulocytes % 0.4 % (0-4); Lymphocytes # 2.2 K/mcL (0.6-4.6); Lymphocytes % 19.7 %; Mean Corpuscular HGB Conc 32.9 g/dL (31.6-35.5); Mean Corpuscular Hemoglobin 31.9 pg (28.0-33.3); Mean Corpuscular Volume 96.9 fL (83.0-100.0); Mean Platelet Volume 11.8 fL (9.4-12.4); Monocytes # 0.7 K/mcL (0.0-1.3); Platelet Count 135 K/mcL (140-400); Red Blood Count 3.92 M/mcL (3.82-4.97); Red Cell Distribution Width 14.1 % (11.5-14.5); Segmented Neutrophils % 72.1 %
[2018-04-07] MEDS ORDERED: levoFLOXacin 500 MG TABLET PO SCH (09:00)
[2018-04-07 09:21] LABS: Bilirubin,Urine Negative (Negative); Blood,Urine Negative (Negative); Clarity,Urine Clear (Clear); Color,Urine Yellow (Yellow); Glucose,Urine (UA) Normal (Normal); Ketones,Urine Negative (Negative); Leukocyte Esterase,Urine Trace (Negative); Nitrite,Urine Negative (Negative); PH,Urine 6.5 pH Units (5.0-8.0); Protein,Urine Negative (Neg-Trace); Specific Gravity,Urine 1.005 (1.010-1.025); Urobilinogen,Urine Normal (Normal)
[2018-04-07 09:24] LABS: Bacteria,Urine None Seen per hpf (None-Few); Hyaline Casts,Urine None Seen per lpf (None-Few); RBC,Urine 0-3 per hpf (0-3); Squamous Epithelial Cell,Urine None Seen per lpf (None-Few); WBC,Urine 0-3 per hpf (0-3)
--- NOTE | 2018-04-07 10:50 | Discharge Summary ---
- NOTES TO OUTPATIENT PROVIDER Notes to Outpatient Provider: Follow up with PCP, Pulmonology and Immunology. Admitted to observation for CHFE due to non-compliance with lasix, and PNA. Discharged home with new prescription for lasix and Levaquin. No change in other home meds Orders not resulted at time of discharge: Pending orders 04/05/18 16:10 Sputum Culture [Culture,Sputum with Gram Stain] [] Stat 04/05/18 16:12 Legionella Antigen [RM] Stat Streptococcal pneumoniae urin antigen [S. Pneumoniae Antigen] [] Stat 04/05/18 16:30 Culture,Blood [] Stat 04/07/18 08:50 Culture,Urine [] Stat Date of Encounter: 04/07/18 Time of Encounter: 10:48 - Discharge Diagnosis (1) CHF exacerbation Priority: Primary Status: Acute Qualifiers: Heart failure type: diastolic Qualified Code(s): I50.33 - Acute on chronic diastolic (congestive) heart failure (2) PNA (pneumonia) Priority: Primary Status: Suspected Qualifiers: Pneumonia type: due to unspecified organism Laterality: unspecified laterality Lung location: unspecified part of lung Qualified Code(s): J18.9 - Pneumonia, unspecified organism (3) DVT prophylaxis Priority: Primary Status: Acute (4) GERD (gastroesophageal reflux disease) Priority: Secondary Status: Chronic Qualifiers: Esophagitis presence: without esophagitis Qualified Code(s): K21.9 - Gastro -esophageal reflux disease without esophagitis (5) HLD (hyperlipidemia) Priority: Secondary Status: Chronic Qualifiers: Hyperlipidemia type: unspecified Qualified Code(s): E78.5 - Hyperlipidemia , unspecified (6) HTN (hypertension) Priority: Secondary Status: Chronic Qualifiers: Hypertension type: essential hypertension Qualified Code(s): I10 - Essential (primary) hypertension (7) NACHO (obstructive sleep apnea) Priority: Secondary Status: Chronic (8) CAD (coronary artery disease) Priority: Secondary Status: Chronic Qualifiers: Coronary Disease-Associated Artery/Lesion type: [place] artery [place] vs. transplanted heart: [place] heart Associated angina: without angina Qualified Code(s): I25.10 - Atherosclerotic heart disease of [place] coronary artery without angina pectoris (9) Uncontrolled severe persistent asthma Priority: Secondary Status: Chronic (10) Chronic respiratory failure with hypoxia Priority: Secondary Status: Chronic (11) Immune deficiency disorder Priority: Secondary Status: Chronic Hospital course: Ms. Ga is a 77 year old female with PMH of Immune deficiency on subcutaneous IgG, chronic respiratory failure on home oxygen, diastolic CHF , hypertension, GERD, severe persistent asthma who presented with shortness of breath and cough. She denied any new changes in sputum production, no fever or chills, no cough that is worse than her baseline, she also does not have sick contacts, rhinorrhea of facial pain. She denies orthopnea but states "my children have been elevating the head of my bed", she denies PND. Her O2 requirement is at her baseline without increasing requirement She denies chest pain, however, endorsed ankle edema that is not improving despite taking own dose of lasix Work up in ER significant for leukocytosis , Chem at abseline, Elevated D-dimer , as well as BNP 192, Troponin is negative and EKG is NSR with no ST segment changes CXR showed possible pulm edema vs bronchiolitis Initial admission was for CHF exacerbation due to noncompliance with Lasix, however, patient developed one episode of fever inpatient, and she was managed for pneumonia. Cultures are negative. She was seen and evaluated at the bedside this morning, chest symptoms have improved, but has edema has resolved, chest x-ray shows resolution of and improvement of pulmonary edema. With no infiltrates. Leukocytosis has resolved and patient has remained afebrile for 48 hours. ECHO showed moderate LVDD, EF preserved, normal wall motion. She will be discharged home with family on oral antibiotics and lasix. She reports "I have a bunch of water pills at home, which I don't take", she is educated about fluid restriction and compliance with meds and follow up. She verbalized understanding her O2 requirement is at her baseline, she is not septic and she is not tachypneic Per CSM, she is independent of her IADLs and has no home needs Follow up with PCP, Pulmonology Discharge discussed with: patient - Time Spent with Patient Total time spent providing and/or coordinating discharge services: Less than 30 minutes - Discharge Medications Prescriptions: Furosemide [Lasix] 40 mg PO DAILY #30 tablet levoFLOXacin [Levaquin] 500 mg PO DAILY #4 tablet Home Medications: BuPROPion [Wellbutrin] 100 mg PO BID 09/20/15 [History] Lisinopril [Zestril] 10 mg PO DAILY 09/20/15 [History] Ropinirole HCl [Requip] 2 mg PO TID 09/20/15 [History] Simvastatin [Zocor] 20 mg PO HS 09/20/15 [History] Albuterol Sulfate [Ventolin Hfa] 2 puff IH Q4H PRN 10/17/15 [History] Oxygen 2 l NS AD 10/17/15 [History] Aspirin 81 mg PO DAILY 03/10/16 [History] Cholecalciferol (D-3) [Vitamin D] 1,000 unit PO DAILY 03/10/16 [History] Potassium Chloride [K-Tab ER] 20 meq PO DAILY #30 tablet.er 03/17/16 [Rx] Omeprazole [PriLOSEC] 20 mg PO DAILY 05/20/16 [History] Budesonide/Formoterol 160/4.5 [Symbicort 160/4.5] 2 puff IH BIDR 11/21/16 [ History] Ipratropium/Albuterol Neb [Duoneb] 3 ml IH Q4HR #30 vial.neb 07/18/17 [Rx] Albuterol Neb [Proventil Neb] 2.5 mg IH Q8H PRN 04/05/18 [History] Fluticasone Propionate Nasal [Flonase] 2 spr NS DAILY PRN 04/05/18 [History] Nystatin Cream [Mycostatin Cream] 1 appl TP BID 04/05/18 [History] Nystatin [Nystatin Suspension] 4 ml PO QID 04/05/18 [History] Paroxetine [Paxil] 20 mg PO DAILY 04/05/18 [History] Immun Glob G(IgG)/Pro/Iga 0-50 [Hizentra 10 Gram/50 ml Vial] 10 gm SQ QWEEK [History] Furosemide [Lasix] 40 mg PO DAILY #30 tablet 04/07/18 [Rx] levoFLOXacin [Levaquin] 500 mg PO DAILY #4 tablet 04/07/18 [Rx] Allergies/Adverse Reactions: 3 Allergy/AdvReac Type Severity Reaction Status Date / Time No Known Allergies Allergy Verified 02/11/17 04:00 Date of admission: 04/05/18 13:35 Primary care physician: Amber Wright CNP Consults: 04/05/18 16:18 Consult to Allergy/Immunology [CONS] Routine Consulting Provider: Ariel Palacios Reason for Consult: Known immune deficiency on hizentra, pls evaluate, thank you. Call Completed: Yes Discharging clinician: Curly Perdomo Anticipated date of discharge: 04/07/18 - Constitutional Vitals: Temp Pulse Resp BP Pulse Ox 98.4 F 50 16 110/55 99 04/07/18 07:04 04/07/18 07:04 04/07/18 07:37 04/07/18 07:04 04/07/18 07:37 General appearance: Present: A&O X 3, morbidly obese, pleasant Exam: see detailed exam below - Head Head exam: Present: atraumatic, normocephalic - Eye Eye exam: Present: PERRL, conjuntiva pink, sclera anicteric Pupils: Present: PERRL - Neck Neck exam general surgery: Present: supple, trachea midline. Absent: lymphadenopathy - Respiratory Respiratory exam: Present: CTAB. Absent: accessory muscle use, rales, rhonchi, wheezes - Cardiovascular Cardiovascular exam: Present: RRR, +S1, +S2. Absent: diastolic murmur, gallop, rubs, systolic murmur - GI/Abdominal GI/Abdominal exam: Present: normal bowel sounds, soft, no peritoneal signs. Absent: distended, tenderness - Extremities Exam Extremities exam: Present: warm, radial pulses palpable and symmetrical. Absent : calf tenderness, cyanotic, pedal edema - Neurological Exam Neurological exam: Present: CN II-XII intact, oriented X3, no focal deficits. Absent: pronater drift, facial droop, speech deficit - Skin Skin exam: Present: dry, intact - Patient Status Disposition: Home, Self-Care Condition: Good Functional capacity at discharge: independent ambulation Overall status at discharge: patient is progressing back to baseline - Discharge Instructions Instructions: Heart Failure (DC), Asthma (DC), Chronic Hypertension (DC), Edema (DC) Follow Up With: Amber Wright CNP [Primary Care Provider] - 04/13/18 1:00 pm (Your appointment has been requested. Our offices will call you with a follow up appointment. If you do not hear from us, feel free to call us and make an appointment after discharge. Thank You. ) Additional Instructions: Follow-up appointments: If there is not an appointment listed below, please call your physician and schedule a follow-up appointment. If you have congestive heart failure and your symptoms return, make an appointment with your physician. Medication List: Carry an up to date list of medications you are taking at all time. We have given you an updated medication list including any new medications that you have been prescribed. Please provide that list to your primary provider Symptoms: If your condition changes or you experience any of the following symptoms, notify your physician immediately: Unusual or worsening pain, fever, persistent nausea and vomiting, bleeding, increase in swelling (especially in your legs), sudden weight gain, extreme dizziness, chest pain, increased drainage or redness from a wound or incision. Go to the emergency department if you experience a problem with breathing. Weights: If you have a history of swelling or shortness of breath, weigh yourself daily and notify your physician if you have a weight gain of two or more pounds in one day or 5 or more pounds in a week. If you experience any of the warning signs for stroke: Sudden numbness or weakness of the face, arm or leg; especially on one side of the body, sudden confusion, trouble speaking or understanding, sudden trouble seeing in one or both eyes, sudden trouble walking, dizziness, loss of balance or coordination, sudden sever headache with no cause; Call 911 or go to the emergency room. Stroke is a medical emergency. Some risk factors for stroke: Age, cigarette smoking, diabetes, excessive alcohol consumption, family history , high blood pressure, overweight, physical inactivity, prior stroke, heart attack, diagnosis of carotid artery stenosis or other artery disease. If you smoke, STOP: Smoking or tobacco use significantly increases your risk of heart and lung disease. Your chance of disease greatly increases if you continue to smoke. For more information, call the [place] tobacco quit line for smoking cessation QUIT-NOW ( ) - Diet and Activity Activity: resume usual activities as tolerated, wear oxygen at all times Diet: low fat, low cholesterol, low salt diet
== END 2018-04-07 16:20 | disposition home or self-care (01) ==
LOC: EMEROOARM 08:36 → 3BNU 08:36 → SUATTDRO 13:35 → 3BNU 14:03
PROVIDERS: ADMIT Internal Medicine; ATTEND Internal Medicine

== ENCOUNTER 2018-06-22 22:15 | Inpatient (IN) ==
[2018-06-22] MEDS ORDERED: Ipratropium/Albuterol Neb 3 ML IH ONE (22:20)
[2018-06-22] MEDS ORDERED: methylPREDNISolone 125 MG/2 ML VIAL IVP ONE (22:23)
--- NOTE | 2018-06-22 22:23 | Emergency Department Note ---
Disposition Clinical Impression: Respiratory failure Qualifiers: Chronicity: acute Respiratory failure complication: hypoxia and hypercapnia Qualified Code(s): J96.01 - Acute respiratory failure with hypoxia; J96.02 - Acute respiratory failure with hypercapnia Disposition: Still a Patient Condition: Serious General Adult HPI - General Stated complaint: TYLER Time Seen by Provider: 06/22/18 22:19 Nursing Notes Reviewed: Yes Vital Signs Reviewed: Yes - History of Present Illness HPI Narrative: ED attending Attestation note I examined this patient and my medical decision-making was reviewed with the Resident Physician/nurse practitioner/physician assistant manager of operations/medical student. I agree with the documented findings, disposition and treatment plan as described except to the extent set forth below. I personally have spent [id number] time with the patient. Briefly: 78-year-old female history of advanced ages COPD family called found patient unresponsive and cyanotic if not violaceous. Her sats were in the mid 5 0s they backdrop [place] CPAP) here for further evaluation she started pinking up cyanosis resolved patient be started becoming more awake and responsive. The emergency department emergently applied BiPAP patient be getting triple DuoNeb treatments IV steroids screening labs chest x-ray EKG with admission anticipated. Providing 60 mg critical care service for this patient. Admission disposition pending - Related Data Home Medications Medication Instructions Recorded Confirmed BuPROPion [Wellbutrin] 100 mg PO BID 09/20/15 04/05/18 Lisinopril [Zestril] 10 mg PO DAILY 09/20/15 04/05/18 Ropinirole HCl [Requip] 2 mg PO TID 09/20/15 04/05/18 Simvastatin [Zocor] 20 mg PO HS 09/20/15 04/05/18 Albuterol Sulfate [Ventolin Hfa] 2 puff IH Q4H PRN 10/17/15 04/05/18 Oxygen 2 l NS AD 10/17/15 04/05/18 Aspirin 81 mg PO DAILY 03/10/16 04/05/18 Cholecalciferol (D-3) [Vitamin D] 1,000 unit PO DAILY 03/10/16 04/05/18 Omeprazole [PriLOSEC] 20 mg PO DAILY 05/20/16 04/05/18 Budesonide/Formoterol 160/4.5 2 puff IH BIDR 11/21/16 04/05/18 [Symbicort 160/4.5] Albuterol Neb [Proventil Neb] 2.5 mg IH Q8H PRN 04/05/18 04/05/18 Fluticasone Propionate Nasal 2 spr NS DAILY PRN 04/05/18 04/05/18 [Flonase] Nystatin Cream [Mycostatin Cream] 1 appl TP BID 04/05/18 04/05/18 Nystatin [Nystatin Suspension] 4 ml PO QID 04/05/18 04/05/18 Paroxetine [Paxil] 20 mg PO DAILY 04/05/18 04/05/18 Immun Glob G(IgG)/Pro/Iga 0-50 10 gm SQ QWEEK 04/06/18 04/06/18 [Hizentra 10 Gram/50 ml Vial] Previous Rx's Medication Instructions Recorded Potassium Chloride [K-Tab ER] 20 meq PO DAILY #30 tablet.er 03/17/16 Ipratropium/Albuterol Neb [Duoneb] 3 ml IH Q4HR #30 vial.neb 07/18/17 Furosemide [Lasix] 40 mg PO DAILY #30 tablet 04/07/18 levoFLOXacin [Levaquin] 500 mg PO DAILY #4 tablet 04/07/18 Allergies Allergy/AdvReac Type Severity Reaction Status Date / Time No Known Allergies Allergy Verified 02/11/17 04:00 Past Medical History - Past Medical History Medical history: Reports: asthma, hyperlipidemia, hypertension Surgical history: Reports: , cholecystectomy, knee replacement, orthopedic, other, other Psychiatric history: Reports: anxiety, panic disorder - Social History Smoking Status: Never smoker Smokeless Tobacco Status: No Alcohol use: Reports: none Drug use: Reports: none
[2018-06-22 22:56] LABS: Basophils % 0.8 %
[2018-06-22 22:59] LABS: Basophils # 0.1 K/mcL (0.0-0.2); Eosinophils % 6.5 %; Hematocrit 46.4 % (35.3-44.9); Immature Granulocytes % 0.6 % (0-4); Lymphocytes # 6.3 K/mcL (0.6-4.6); Lymphocytes % 39.6 %; Mean Corpuscular HGB Conc 32.3 g/dL (31.6-35.5); Mean Corpuscular Hemoglobin 31.8 pg (28.0-33.3); Mean Corpuscular Volume 98.5 fL (83.0-100.0); Mean Platelet Volume 11.6 fL (9.4-12.4); Monocytes # 0.9 K/mcL (0.0-1.3); Monocytes % 5.5 %; Neutrophils # 7.5 K/mcL (1.6-8.9); Platelet Count 207 K/mcL (140-400); Red Blood Count 4.71 M/mcL (3.82-4.97); Red Cell Distribution Width 13.5 % (11.5-14.5)
[2018-06-22 23:02] LABS: VBG HCO3 19 mEq/L (21-27); VBG PCO2 48 mmHg (41-51); VBG PH 7.21 pH Units (7.32-7.42); VBG PO2 140 mmHg (25-50)
[2018-06-22 23:14] LABS: Platelet Clumps Few (Not Present)
[2018-06-22 23:19] LABS: Troponin I < 0.03 ng/mL (< 0.04)
[2018-06-22 23:20] LABS: Blood Urea Nitrogen 24 mg/dL (8-23); Carbon Dioxide 16 mEq/L (23-29); Chloride 100 mEq/L (98-107); Glucose 277 mg/dL (70-105); Osmolality,Calculated 294 (280-300); Potassium 4.5 mEq/L (3.5-5.1); Sodium 135 mEq/L (136-145)
[2018-06-22 23:42] LABS: BUN/Creatinine Ratio 18 (6-26); Calcium 8.9 mg/dL (8.6-10.3); eGFR For Non-African Americans 37 (> 60)
--- NOTE | 2018-06-22 23:49 | Emergency Department Note ---
Disposition Clinical Impression: Respiratory failure Qualifiers: Chronicity: acute Respiratory failure complication: hypoxia and hypercapnia Qualified Code(s): J96.01 - Acute respiratory failure with hypoxia; J96.02 - Acute respiratory failure with hypercapnia Respiratory failure with hypoxia and hypercapnia Qualifiers: Chronicity: acute on chronic Qualified Code(s): J96.21 - Acute and chronic respiratory failure with hypoxia; J96.22 - Acute and chronic respiratory failure with hypercapnia Disposition: Admitted As Inpatient Condition: Fair Referrals: Dm Mcclelland MD [Primary Care Provider] - Time of Disposition: 23:50 SOB HPI - General Chief Complaint: ED Shortness of Breath/Dyspnea Stated Complaint: TYLER Time Seen by Provider: 06/22/18 22:19 Source: family, EMS Mode of arrival: EMS Limitations: no limitations Nursing Notes Reviewed: Yes Vital Signs Reviewed: Yes - History of Present Illness 78-year-old female history of COPD normally is on 2 L at home as well as using BiPAP at night presented to the emergency department via EMS in respiratory distress. She was found at home if 50% auction saturations EMS was called and said that she is having a hard time breathing very to Make. They placed her on CPAP at that time she responded very well to that. Patient has not been sick recently is been no nausea or vomiting no fevers recently she does have history of CHF as well. She is not having any pain anywhere. There is nothing that exacerbated this. Patient states she has been doing her normal self at home. She does see pulmonology regularly. Patient otherwise not having any complaints including no headaches, blurry vision, neck pain, back pain, fever, chills, nausea, bile vomiting, chest pain, abdominal pain, changes in balance, pain with urination, pain or tingling or down the arms or legs or any generalized weakness. - Related Data Home Medications Medication Instructions Recorded Confirmed BuPROPion [Wellbutrin] 100 mg PO BID 09/20/15 04/05/18 Lisinopril [Zestril] 10 mg PO DAILY 09/20/15 04/05/18 Ropinirole HCl [Requip] 2 mg PO TID 09/20/15 04/05/18 Simvastatin [Zocor] 20 mg PO HS 09/20/15 04/05/18 Albuterol Sulfate [Ventolin Hfa] 2 puff IH Q4H PRN 10/17/15 04/05/18 Oxygen 2 l NS AD 10/17/15 04/05/18 Aspirin 81 mg PO DAILY 03/10/16 04/05/18 Cholecalciferol (D-3) [Vitamin D] 1,000 unit PO DAILY 03/10/16 04/05/18 Omeprazole [PriLOSEC] 20 mg PO DAILY 05/20/16 04/05/18 Budesonide/Formoterol 160/4.5 2 puff IH BIDR 11/21/16 04/05/18 [Symbicort 160/4.5] Albuterol Neb [Proventil Neb] 2.5 mg IH Q8H PRN 04/05/18 04/05/18 Fluticasone Propionate Nasal 2 spr NS DAILY PRN 04/05/18 04/05/18 [Flonase] Nystatin Cream [Mycostatin Cream] 1 appl TP BID 04/05/18 04/05/18 Nystatin [Nystatin Suspension] 4 ml PO QID 04/05/18 04/05/18 Paroxetine [Paxil] 20 mg PO DAILY 04/05/18 04/05/18 Immun Glob G(IgG)/Pro/Iga 0-50 10 gm SQ QWEEK 04/06/18 04/06/18 [Hizentra 10 Gram/50 ml Vial] Previous Rx's Medication Instructions Recorded Potassium Chloride [K-Tab ER] 20 meq PO DAILY #30 tablet.er 03/17/16 Ipratropium/Albuterol Neb [Duoneb] 3 ml IH Q4HR #30 vial.neb 07/18/17 Furosemide [Lasix] 40 mg PO DAILY #30 tablet 04/07/18 levoFLOXacin [Levaquin] 500 mg PO DAILY #4 tablet 04/07/18 Allergies Allergy/AdvReac Type Severity Reaction Status Date / Time No Known Allergies Allergy Verified 02/11/17 04:00 All systems ED: reviewed and negative except as stated. Review of Systems: As Per HPI Past Medical History - Past Medical History Attestation: Yes The following information was validated with the patient. Source: patient Medical history: Reports: asthma, hyperlipidemia, hypertension Surgical history: Reports: , cholecystectomy, knee replacement, orthopedic, other, other Psychiatric history: Reports: anxiety, panic disorder - Social History Smoking Status: Never smoker Smokeless Tobacco Status: No Alcohol use: Reports: none Drug use: Reports: none Physical Exam - General Limitations: no limitations General appearance: alert - Head Head exam: atraumatic, normocephalic, normal inspection - Eye Eye exam: Present: normal appearance, PERRL, EOMI - ENT ENT exam: normal exam, normal oropharynx, mucous membranes moist - Neck Neck exam: Present: normal inspection, full ROM, trachea midline - Chest Chest inspection: Present: normal inspection, symmetric chest wall rise - Respiratory Respiratory exam: Present: respiratory distress (Increased respiratory distress patient was not moving much air in the lungs there were wheezes throughout. She was very tight on exam.), wheezes, accessory muscle use, prolonged expiratory phase - Cardiovascular Cardiovascular exam: Present: regular rate, normal rhythm, normal heart sounds - Abdominal Exam Abdominal exam: Present: soft, Non-Tender, normal bowel sounds. Absent: tenderness, distention, guarding, rebound, rigidity - Extremities Exam Extremities exam: Present: normal inspection, full ROM. Absent: tenderness, pedal edema - Back Exam Back exam: Present: normal inspection, full ROM. Absent: tenderness, CVA tenderness (R), CVA tenderness (L) - Neurological Exam Neurological exam: Present: alert, oriented X3 - Skin Skin exam: Present: warm, dry, intact, normal color Course Vital Signs Temperature 97.8 F 06/22/18 22:18 Pulse Rate 99 06/22/18 22:18 Respiratory Rate 21 06/22/18 22:18 Blood Pressure 123/70 06/22/18 22:18 O2 Sat by Pulse Oximetry 100 06/22/18 22:18 Temperature 97.8 F 06/22/18 22:18 Pulse Rate 87 06/22/18 23:40 Respiratory Rate 21 06/22/18 23:40 Blood Pressure 117/73 06/22/18 23:40 O2 Sat by Pulse Oximetry 98 06/22/18 23:40 Oxygen Delivery Oxygen Delivery Bipap Shortness of Breath/Dyspnea - MDM Narrative Medical decision making narrative: Patient presented here originally in respiratory distress while on CPAP via EMS. We transferred her to where BiPAP machine patient originally had wheezing on lungs bilaterally and not moving much air. After getting albuterol and liste venice to her again patient started moving much better air did give her 125 of Solu-Medrol as well as get blood cultures lactate and VBG. Patient was acidotic most likely secondary to hypercapnia. Patient also had elevated lactate also secondary to hypercapnia. We will get repeat lactate patient was given IV fluids here in the emergency department. She did receive 1 full liter. Blood cultures are pending. Patient received 9 ML's of DuoNeb responded very well to that we are we are going to keep patient on BiPAP she normally uses at night. And she is responding very well to it at this time. Oxygen saturation have been decreased and she is on very minimal settings at this time. I spoke with the hospitalist Dr. Hernandez who agreed to admit the patient to their service. Patient is admitted in stable condition. This most likely is COPD exacerbation this also could be CHF exacerbation but is less likely due to patient responding well to DuoNeb's and BiPAP. Chest X-Ray 06/22/18 22:20 IMPRESSION: Prominence of the central pulmonary vasculature. Correlation for pulmonary vascular congestion is recommended. D/ / Dimple Porter Cha, MD / Dimple Porter Cha, MD Interpreting Provider: Dimple Porter Cha, MD - Medical Records Medical records reviewed: Yes I reviewed the patient's medical records. - Lab Data Lab results reviewed: Yes I reviewed the patient's lab results. Result diagrams: 06/22/18 22:20 06/22/18 22:20 Lab Results 06/22/18 06/22/18 06/22/18 Range/Units 22:20 22:20 22:20 WBC 15.9 H (4.3-11.1) K/mcL RBC 4.71 (3.82-4.97) M/mcL Hgb 15.0 (11.5-15.4) g/dL Hct 46.4 H (35.3-44.9) % MCV 98.5 (83.0-100.0) fL MCH 31.8 (28.0-33.3) pg MCHC 32.3 (31.6-35.5) g/dL RDW 13.5 (11.5-14.5) % Plt Count 207 (140-400) K/mcL MPV 11.6 (9.4-12.4) fL Immature Gran % 0.6 (0-4) % Seg Neutrophils % 47.0 % Lymphocytes % 39.6 % Monocytes % 5.5 % Eosinophils % 6.5 % Basophils % 0.8 % Neutrophils # 7.5 (1.6-8.9) K/mcL Lymphocytes # 6.3 H (0.6-4.6) K/mcL Monocytes # 0.9 (0.0-1.3) K/mcL Eosinophils # 1.0 H (0.0-0.6) K/mcL Basophils # 0.1 (0.0-0.2) K/mcL Clumped Platelets Few A (Not Present) VBG pH (7.32-7.42) pH Units VBG pCO2 (41-51) mmHg VBG pO2 (25-50) mmHg VBG HCO3 (21-27) mEq/L Sodium 135 L (136-145) mEq/L Potassium 4.5 (3.5-5.1) mEq/L Chloride 100 (98-107) mEq/L Carbon Dioxide 16 L (23-29) mEq/L BUN 24 H (8-23) mg/dL Creatinine 1.37 H (0.60-1.20) mg/dL Est GFR ( Amer) 45 L (> 60) Est GFR (Non-Af Amer) 37 L (> 60) BUN/Creatinine Ratio 18 (6-26) Glucose 277 H (70-105) mg/dL Calculated Osmolality 294 (280-300) Lactic Acid (0.5-2.2) mmol/L Calcium 8.9 (8.6-10.3) mg/dL Troponin I < 0.03 (< 0.04) ng/mL B-Natriuretic Peptide 67 (Less than 100) pg/mL 06/22/18 06/22/18 Range/Units 22:32 22:59 WBC (4.3-11.1) K/mcL RBC (3.82-4.97) M/mcL Hgb (11.5-15.4) g/dL Hct (35.3-44.9) % MCV (83.0-100.0) fL MCH (28.0-33.3) pg MCHC (31.6-35.5) g/dL RDW (11.5-14.5) % Plt Count (140-400) K/mcL MPV (9.4-12.4) fL Immature Gran % (0-4) % Seg Neutrophils % % Lymphocytes % % Monocytes % % Eosinophils % % Basophils % % Neutrophils # (1.6-8.9) K/mcL Lymphocytes # (0.6-4.6) K/mcL Monocytes # (0.0-1.3) K/mcL Eosinophils # (0.0-0.6) K/mcL Basophils # (0.0-0.2) K/mcL Clumped Platelets (Not Present) VBG pH 7.21 L (7.32-7.42) pH Units VBG pCO2 48 (41-51) mmHg VBG pO2 140 H (25-50) mmHg VBG HCO3 19 L (21-27) mEq/L Sodium (136-145) mEq/L Potassium (3.5-5.1) mEq/L Chloride (98-107) mEq/L Carbon Dioxide (23-29) mEq/L BUN (8-23) mg/dL Creatinine (0.60-1.20) mg/dL Est GFR ( Amer) (> 60) Est GFR (Non-Af Amer) (> 60) BUN/Creatinine Ratio (6-26) Glucose (70-105) mg/dL Calculated Osmolality (280-300) Lactic Acid 6.4 H* (0.5-2.2) mmol/L Calcium (8.6-10.3) mg/dL Troponin I (< 0.04) ng/mL B-Natriuretic Peptide (Less than 100) pg/mL - Radiology Data Radiology results reviewed: Yes I reviewed the patient's radiology results. - EKG Data EKG attestation: Yes I reviewed and interpreted this EKG. EKG results narrative: EKG done at review myself and the attending shows sinus rhythm at a rate of 84, IL interval 164, QRS 80, QTC 451. There is no acute ST changes no acute T-wave changes no other signs of ischemia. No signs of hypertrophy, heart block, heart strain. No WPW/Brugada/HOCM. This EKG is otherwise no change when compared with old one done 04/05/18
[2018-06-23] MEDS ORDERED: Naloxone 0.4 MG/ML INJ IVP PRN (01:56)
[2018-06-23 02:33] LABS: Basophils % 0.3 %; Eosinophils # 0.1 K/mcL (0.0-0.6); Eosinophils % 0.9 %; Hematocrit 41.2 % (35.3-44.9); Hemoglobin 14.1 g/dL (11.5-15.4); Immature Granulocytes % 0.5 % (0-4); Lymphocytes # 0.7 K/mcL (0.6-4.6); Lymphocytes % 5.4 %; Mean Corpuscular HGB Conc 34.2 g/dL (31.6-35.5); Mean Corpuscular Hemoglobin 32.2 pg (28.0-33.3); Mean Corpuscular Volume 94.1 fL (83.0-100.0); Mean Platelet Volume 10.8 fL (9.4-12.4); Monocytes # 0.3 K/mcL (0.0-1.3); Monocytes % 2.1 %; Neutrophils # 11.4 K/mcL (1.6-8.9); Platelet Count 169 K/mcL (140-400); Red Blood Count 4.38 M/mcL (3.82-4.97); Red Cell Distribution Width 13.5 % (11.5-14.5); Segmented Neutrophils % 90.8 %
[2018-06-23 02:54] LABS: Albumin 4.1 g/dL (3.5-5.7); Albumin/Globulin Ratio 1.4 (1.1-2.2); Bilirubin,Total 0.6 mg/dL (0.3-1.0); Potassium 4.1 mEq/L (3.5-5.1); Total Protein 7.1 g/dL (6.4-8.9)
--- NOTE | 2018-06-23 03:01 | Internal Med History&Physical ---
<Stas Jeffries - Last Filed: 06/23/18 05:26> Date of Encounter: 06/23/18 Time of Encounter: 02:48 Internal Medicine - H&P: HPI Chief complaint: Dyspnea Admitted From: Emergency Dept Plans for Post Hospital Care: Home History of present illness: Ms. Ga is a 78 year old female Patient is an 78F with PMHx of CHF, asthma, COPD 2LNC, CKDIII, HTN, HLD, NACHO, and CAD admitted to the emergency department for COPD exacerbation. Patient lives at home by herself and is on 2LNC chronically. Patient states over the past week she has had increased difficulty with breathing and productive cough. States this morning her symptoms were severe and she called her daughter and then passed out on the bed from dyspnea. Per ED note, patient was retrieved by squad and found to have oxygen saturation in the 50%. Patient responded well to BiPAP, steroids and breathing treatments in the ED. Patient denies fevers, chest pain, N/V/D, abdominal pain, dysuria or diarrhea. Past Med Surg Social Fam HX - Past Medical History Medical history: asthma, hyperlipidemia, hypertension Additional medical history: vocal cord disfunction Psychiatric history: anxiety, panic disorder - Past Surgical History Surgical History: , cholecystectomy, knee replacement, orthopedic, other, other Additional surgical history: carpal tunnel release R. knee replacement bilateral - Social History Smoking Status: Never smoker Smokeless Tobacco Status: No Alcohol use: none Drug use: none - Family History Mother Living Status: Hx Family Cardiac Disorders: Yes Hx Family Respiratory Disorders: Yes Father Living Status: Hx Family Cardiac Disorders: Yes Internal Medicine - H&P: Meds BuPROPion [Wellbutrin] 100 mg PO BID 09/20/15 [History] Lisinopril [Zestril] 10 mg PO DAILY 09/20/15 [History] Ropinirole HCl [Requip] 2 mg PO TID 09/20/15 [History] Simvastatin [Zocor] 20 mg PO HS 09/20/15 [History] Albuterol Sulfate [Ventolin Hfa] 2 puff IH Q4H PRN 10/17/15 [History] Oxygen 2 l NS AD 10/17/15 [History] Aspirin 81 mg PO DAILY 03/10/16 [History] Cholecalciferol (D-3) [Vitamin D] 1,000 unit PO DAILY 03/10/16 [History] Potassium Chloride [K-Tab ER] 20 meq PO DAILY #30 tablet.er 03/17/16 [Rx] Omeprazole [PriLOSEC] 20 mg PO DAILY 05/20/16 [History] Budesonide/Formoterol 160/4.5 [Symbicort 160/4.5] 2 puff IH BIDR 11/21/16 [History] Ipratropium/Albuterol Neb [Duoneb] 3 ml IH Q4HR #30 vial.neb 07/18/17 [Rx] Albuterol Neb [Proventil Neb] 2.5 mg IH Q8H PRN 04/05/18 [History] Fluticasone Propionate Nasal [Flonase] 2 spr NS DAILY PRN 04/05/18 [History] Nystatin Cream [Mycostatin Cream] 1 appl TP BID 04/05/18 [History] Nystatin [Nystatin Suspension] 4 ml PO QID 04/05/18 [History] Paroxetine [Paxil] 20 mg PO DAILY 04/05/18 [History] Immun Glob G(IgG)/Pro/Iga 0-50 [Hizentra 10 Gram/50 ml Vial] 10 gm SQ QWEEK 0 04/06/18 [History] Furosemide [Lasix] 40 mg PO DAILY #30 tablet 04/07/18 [Rx] levoFLOXacin [Levaquin] 500 mg PO DAILY #4 tablet 04/07/18 [Rx] Allergy/AdvReac Type Severity Reaction Status Date / Time No Known Allergies Allergy Verified 02/11/17 04:00 All Systems PM: A 10-system review of systems was performed and is negative for pertinent findings except as documented above in the HPI. - Constitutional Constitutional: as per HPI, weakness, no fever(s) - EENT Eyes: as per HPI - Cardiovascular Cardiovascular ROS IM: dyspnea, dyspnea on exertion, edema, no chest pain, no palpitations - Respiratory Respiratory: as per HPI, dyspnea, dyspnea on exertion, wheezing, excessive phl egm production - Gastrointestinal Gastrointestinal: as per HPI - Genitourinary Genitourinary: as per HPI - Musculoskeletal Musculoskeletal ROS IM: as per HPI - Integumentary Integumentary IM: as per HPI - Neurological Neurological ROS: as per HPI - Psychiatric Psychiatric: as per HPI - Endocrine Endocrine IM: as per HPI - Constitutional Vitals: Temp Pulse Resp BP Pulse Ox 98.4 F 79 18 132/60 96 06/23/18 02:05 06/23/18 02:05 06/23/18 02:05 06/23/18 02:05 06/23/18 02:05 General appearance: Present: A&O X 3, morbidly obese, pleasant, no acute distress Exam: Oriented and alert. Speaks in full sentences. No respiratory distress at this time. - Head Head exam: Present: atraumatic, normal inspection, normocephalic - Eye Eye exam: Present: EOMI, PERRL - ENT ENT exam: Present: mucous membranes dry, normal exam - Neck Neck exam general surgery: Present: full ROM - Respiratory Respiratory exam: Present: decreased breath sounds, wheezes - Cardiovascular Cardiovascular exam: Present: RRR, +S1, +S2 - GI/Abdominal GI/Abdominal exam: Present: normal bowel sounds, soft - Extremities Exam Extremities exam: Present: pedal edema, warm. Absent: tenderness - Back Exam Back exam: Present: normal inspection - Neurological Exam Neurological exam: Present: alert, oriented X3, no focal deficits - Psychiatric Psychiatric exam: Present: normal affect, normal mood - Skin Skin exam: Present: intact, warm Internal Med - H&P Results - Labs CBC & Chem 7: 06/23/18 02:20 06/23/18 02:20 Labs: Short CBC 06/22/18 06/23/18 Range/Units 22:20 02:20 WBC 15.9 H 12.6 H (4.3-11.1) K/mcL Hgb 15.0 14.1 (11.5-15.4) g/dL Hct 46.4 H 41.2 (35.3-44.9) % Plt Count 207 169 (140-400) K/mcL Neutrophils # 7.5 11.4 H (1.6-8.9) K/mcL BMP 06/22/18 22:20 Sodium 135 L Potassium 4.5 Chloride 100 Carbon Dioxide 16 L BUN 24 H Creatinine 1.37 H Glucose 277 H Calcium 8.9 Cardiac Enzymes 06/22/18 Range/Units 22:20 Troponin I < 0.03 (< 0.04) ng/mL - ABG Interpretation ABG results: 06/22/18 22:59 VBG pH 7.21 L VBG pCO2 48 VBG pO2 140 H VBG HCO3 19 L - Impressions ITS Impressions Chest X-Ray 06/22/18 22:20 IMPRESSION: Prominence of the central pulmonary vasculature. Correlation for pulmonary vascular congestion is recommended. D/ / Dimple Porter Cha, MD / Dimple Porter Cha, MD Interpreting Provider: Dimple Porter Cha, MD - Assessment and plan (1) Acute respiratory failure with hypoxia Current Visit: No Status: Acute Assessment and plan: Patient found in home with oxygen saturation 50% and AMS Improved with treatment in the ED including BiPAP, steroids and duonebs Patient oriented in room at this time on CPAP for NACHO, no acute respiratory distress at this time Most likely secondary to COPD exacerbation with underlying diastolic CHF CXR: Prominence of the central pulmonary vasculature Plan: - Continue BiPAP as needed - CPAP at qH - Levaquin 750mg x 5 days - Scheduled albuterol q4h - Scheduled steroids q6h - Continue to monitor, lasix as needed (2) COPD exacerbation Current Visit: Yes Status: Acute Assessment and plan: Wheezing bilaterally Hx COPD with admission to hospital for exacerbations Improved with treatments Plan: - See plan above (3) Lactic acidosis Current Visit: No Status: Acute Assessment and plan: Initially patient meeting criteria for severe sepsis with HR in the upper 90's, leukocytosis and elevated lactic Patient did not receive 30cc/kg bolus due to Hx of CHF and edema on CXR and lower extremities Suspect vital and lab abnormalities due to COPD exacerbation rather than systemic infection at this time Lactic acidosis resolved with treatment of COPD Repeat Lactate NL Plan: - F/u on BC sent from ED - Levaquin initiated for COPD exacerbation - Continue to monitor vitals and labs (4) Diastolic CHF Current Visit: No Status: Acute Assessment and plan: On exam, patient has mild crackles in the bases and 1+ edema bilateral in the lower extremities Takes lasix at home, states she has been compliant Recent BARRON and Lactic acidosis, will hold on lasix at this time. Will be cautious with any fluid administration BNP 67 Echo on 04/05/18 EF 60-65% with moderate diastolic dysfunction Plan: - Restart lasix in the morning Qualifiers: Heart failure chronicity: acute on chronic Qualified Code(s): I50.33 - Acute on chronic diastolic (congestive) heart failure (5) BARRON (acute kidney injury) Current Visit: No Status: Resolved Assessment and plan: Cr 1.27 in the setting of CKDIII On prior admission patient had normal renal function Suspect due to hypoxia from COPD exacerbation Improved from 1.37 -> 1.27 with treatment Plan: - Continue to monitor, hold on further lasix this evening. (6) NACHO (obstructive sleep apnea) Current Visit: No Status: Acute Assessment and plan: CPAP at night (7) Immune deficiency disorder Current Visit: No Status: Chronic Assessment and plan: Patient reports immune deficiency disorder for which she takes Hizentra weekly Family to bring medication in for administration Will consult allergy/Immunology non-emergently She takes hers SQ, and not as an infusion (8) DVT prophylaxis Current Visit: No Status: Acute Assessment and plan: Heparin 5000 q8h - Time Spent With Patient Total time spent is greater than 50% in coordination of care (as documented) at patient's floor/unit and/or counseling patient: <Pepper Vela - Last Filed: 06/23/18 07:42> Date of Encounter: 06/23/18 Internal Medicine - H&P: HPI History of present illness: Ms. Ga is a 78 year old female All Systems PM: A 10-system review of systems was performed and is negative for pertinent fi ndings except as documented above in the HPI. - Constitutional Vitals: Temp Pulse Resp BP Pulse Ox 98.2 F 79 96 127/85 93 06/23/18 07:21 06/23/18 07:21 06/23/18 07:21 06/23/18 07:21 06/23/18 07:34 Internal Med - H&P Results - Labs CBC & Chem 7: 06/23/18 02:20 06/23/18 02:20 Labs: Short CBC 06/22/18 06/23/18 Range/Units 22:20 02:20 WBC 15.9 H 12.6 H (4.3-11.1) K/mcL Hgb 15.0 14.1 (11.5-15.4) g/dL Hct 46.4 H 41.2 (35.3-44.9) % Plt Count 207 169 (140-400) K/mcL Neutrophils # 7.5 11.4 H (1.6-8.9) K/mcL BMP 06/22/18 06/23/18 22:20 02:20 Sodium 135 L 136 Potassium 4.5 4.1 Chloride 100 102 Carbon Dioxide 16 L 24 BUN 24 H 27 H Creatinine 1.37 H 1.27 H Glucose 277 H 136 H Calcium 8.9 9.0 Cardiac Enzymes 06/22/18 Range/Units 22:20 Troponin I < 0.03 (< 0.04) ng/mL Liver Function 06/23/18 Range/Units 02:20 Total Bilirubin 0.6 (0.3-1.0) mg/dL AST 37 (13-39) Units/L ALT 27 (7-52) Units/L Alkaline Phosphatase 96 (34-104) Units/L Albumin 4.1 (3.5-5.7) g/dL - ABG Interpretation ABG results: 06/22/18 22:59 VBG pH 7.21 L VBG pCO2 48 VBG pO2 140 H VBG HCO3 19 L - Impressions ITS Impressions Chest X-Ray 06/22/18 22:20 IMPRESSION: Prominence of the central pulmonary vasculature. Correlation for pulmonary vascular congestion is recommended. D/ / Dimple Porter Cha, MD / Dimple Porter Cha, MD Interpreting Provider: Dimple Porter Cha, MD - Time Spent With Patient Total time spent is greater than 50% in coordination of care (as documented) at patient's floor/unit and/or counseling patient: - Attending Attestation I performed a history and physical examination the patient and discussed her management with the resident. I reviewed the resident's note and agree with their assessment and plan of care.
[2018-06-23] MEDS: *HR* Heparin 5,000 UNIT/ML VIAL SQ SCH ×4 (03:09→22:03)
[2018-06-23] MEDS: Albuterol 2.5 MG/3 ML NEBULIZER IH SCH ×6 (04:10→23:21)
[2018-06-23] MEDS ORDERED: Furosemide 40 MG/4 ML VIAL IVP ONE (04:48)
[2018-06-23] MEDS: MethylPREDNISolone 40 MG/ML VIAL IVP SCH ×4 (05:56→23:54)
[2018-06-23] MEDS: Levofloxacin 750 MG/150 ML 750 MG/150 ML BAG IVPB SCH (08:01)
[2018-06-23] MEDS: Budesonide/Formoterol 160/4.5 1 PUFF INH IH SCH ×2 (08:03→20:00)
--- NOTE | 2018-06-23 09:52 | Electrocardiograph Report ---
[address] [place], [place] [address] Test Date: 2018-06-22 Pat Name: Nora Ga Department: [id number] Room: 2N09 Gender: F Supervisor Nutritional Yeast: : 1940 Requested By: Dakotah Viera Order Number: [id number] Reading MD: Kalani Renee Measurements Intervals [place] Rate: 84 P: 51 AK: 164 QRS: 50 QRSD: 88 T: -1 QT: 381 QTc: 451 Interpretive Statements Sinus rhythm Nonspecific repol abnormality, diffuse leads Artifact Electronically Signed On 06-23-2018 9:51:37 EST by Kalani Reene
--- NOTE | 2018-06-23 10:48 | Event Note ---
Date of Encounter: 06/23/18 Time of Encounter: 10:44 Patient is examined and reviewed the clinical history. Granddaughter at bedside. 4 L oxygen by nasal cannula with 95% oxygen saturation otherwise stable vitals. Patient is still short of breath but slight better. Review of the lab with trending down creatinine level and normal lactic acid. Patient follow her nut sorter Dr. Don for her asthma. Will continue IV steroid with nebulization and oxygen supplement. She takes immunotherapy hizentra every weekly started by Dr. Amaya, timber cutter/financial services specialist and is due next Wednesday.
[2018-06-23] MEDS: rOPINIRole 1 MG TABLET PO SCH ×3 (11:36→22:02)
[2018-06-23] MEDS ORDERED: ROPINIROLE HCL 2 MG PO SCH (21:00)
[2018-06-23] MEDS ORDERED: Furosemide 20 MG/2 ML VIAL IVP ONE ×2 (21:12→23:31)
[2018-06-23] MEDS: Ipratropium/Albuterol Neb 3 ML IH SCH (23:21)
[2018-06-24] MEDS ORDERED: Menthol 9.1 MG LOZENGE PO PRN (01:05)
--- NOTE | 2018-06-24 03:09 | Event Note ---
Date of Encounter: 06/23/18 Time of Encounter: 21:45 Alerted by pts. nurse FREDY Bach while I was working w/other patients on 2N that the pt. was becoming dyspneic and SpO2 was in the mid 80s. Nurse reported that pt. had rhonchi present on exam bilaterally and was very SOB. Current creatinine 1.27 and GFR 40. Order for 20 mg IVP lasix given along w/fluid restriction and strict I&O. Went to see pt. who was on CPAP. Pt. SOB and experiencing dyspnea. Stat ABG and Respiratory consult ordered. After several failed attempts, no ABG was drawn. SpO2 had improved to mid 90s. Pt. experienced several episodes of SpO2 dropping to mid 80s again. 1V portable CXR ordered to compare to previous d/t increase in SOB. Previous CXR on 06/22 showed prominence of the central pulmonary vasculature. Correlation for pulmonary vascular congestion is recommended. F/u CXR showed the lungs are clear. The costophrenic angles are sharp. The cardiomediastinal silhouette is within normal limits. There is no discernible pneumothorax. Negative portable chest. Mucinex ordered. DuoNebs ordered QID. After first neb, pt. reported some relief. Second dose of 20 mg IVP lasix ordered. Will continue to monitor pts. SpO2 and breathing status overnight. Pt. tolerating CPAP well as she uses it HS at home. Pt. denies regular home O2 use, so plans for discharge should include home O2 screening needs.
[2018-06-24] MEDS: Ipratropium/Albuterol Neb 3 ML IH SCH ×4 (04:06→23:32)
[2018-06-24] MEDS: Albuterol 2.5 MG/3 ML NEBULIZER IH SCH ×6 (04:06→23:32)
[2018-06-24] MEDS: MethylPREDNISolone 40 MG/ML VIAL IVP SCH ×3 (05:40→17:18)
[2018-06-24] MEDS: *HR* Heparin 5,000 UNIT/ML VIAL SQ SCH ×3 (05:41→20:14)
[2018-06-24] MEDS: Budesonide/Formoterol 160/4.5 1 PUFF INH IH SCH ×2 (07:25→19:49)
[2018-06-24] MEDS: rOPINIRole 1 MG TABLET PO SCH ×3 (07:50→20:14)
[2018-06-24] MEDS: Loratadine 10 MG TABLET PO SCH (07:50)
[2018-06-24] MEDS: Cholecalciferol (D-3) 1,000 UNIT TABLET PO SCH (07:51)
[2018-06-24] MEDS: Aspirin 81 MG TAB.CHEW PO SCH (07:51)
[2018-06-24] MEDS: Furosemide 40 MG TABLET PO SCH (07:51)
--- NOTE | 2018-06-24 11:12 | Internal Med Progress Note ---
<Antwon Nye - Last Filed: 06/24/18 14:25> Hospitalist Progress Note - Encounter Date of Encounter: 06/24/18 - Exam Vitals: Temp Pulse Resp BP Pulse Ox 98.3 F 85 16 160/62 95 06/24/18 11:24 06/24/18 11:24 06/24/18 11:24 06/24/18 11:24 06/24/18 11:24 - Assessment and Plan (1) Acute on chronic respiratory failure Current Visit: No Status: Acute (2) COPD exacerbation Current Visit: Yes Status: Acute (3) CHF exacerbation Current Visit: No Status: Acute (4) NACHO (obstructive sleep apnea) Current Visit: No Status: Chronic (5) Severe sepsis Current Visit: No Status: Ruled-out (6) HTN (hypertension) Current Visit: No Status: Chronic (7) Deficient, immunity, 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 - Time Spent with Patient Total time spent is greater than 50% in coordination of care (as documented) at patient's floor/unit and/or counseling patient: Internal Medicine: Result - Labs CBC & Chem 7: 06/23/18 02:20 06/23/18 02:20 - Impressions Impressions Chest X-Ray 06/24/18 23:36 IMPRESSION: Negative portable chest. D/ / Nicholas Gallego MD / Nicholas Gallego MD Interpreting Provider: Nicholas Gallego MD Consult Discharge Plan - Plan Referrals: Alex Loera MD [Partnered Physician] - 07/01/18 1:00 pm Amber Wright CNP [Advanced Practice Nurse] - 07/01/18 3:00 pm - Attending Attestation The history, physical exam, and medical decision making was performed by the medical student either while I was physically present and actively involved or I personally re-performed the exam and medical decision making. I have verified the accuracy of the medical student's documentation with regards to the history, physical exam findings, and medical decision making on 06/24/18. Ms Ga is currently admitted for acute exac COPD. She continues to have some episodes of dyspnea and desaturation. She remains moderate to high risk due to potential for worsening clinical status. Ms Ga is having a lot of cough and congestion. She has been up in chair. She is concerned that she is not improving. She is concerned about her cough and was taking Delsym at home. She sees Dr. Loera as outpatient and would like to see him here if possible. Exam alert Comfortable Mucus membranes dry Heart distant and regular. Diffuse end exp wheeze at this time Abd soft and nontender Moves all extremities No edema I/P 1. Acute exac COPD - Currently on abx, steroids, oxygen, aerosols. Will ask Dr. Loera to see per patient request. She does not think she got a flu shot this year so will check RIP. 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 3. CHF - appears to be improved at this time. 4. NACHO - continue CPAP 5. Respiratory failure with hypoxia - wean as able Further diagnoses and plan as above. <Brenton Howard - Last Filed: 06/24/18 16:56> Hospitalist Progress Note - Encounter Date of Encounter: 06/24/18 Time of Encounter: 09:30 - Subjective Interval History: Ms. Ga is a 78 year old female with PMHx of CHF, asthma, Asthma 2LNC, CKDIII, HTN, HLD, NACHO, and CAD seen bedside on hospital day 2 for an Asthmatic exacerbation. She was using CPAP in the room. Patient reports feeling a little better than previous day but notes that her shortness of breath comes and goes in waves. Chest xray 06/24 was negative for PE, pneumothorax, pulmonary effusion and showed normal cardiomediastinal silhouette. EKG 06/22/18 showed sinus rhythm with nonspecific repolarization abnormality. Patient admits shortness of breath, cough, wheeze, blurry vision and dizziness and denies fever, chills, nausea, vomiting, weight changes, chest pain, palpitations, chest pressure, abdominal pain, bowel changes, urinary changes, and flank tenderness. - Exam Vitals: Temp Pulse Resp BP Pulse Ox 98.2 F 77 16 121/65 95 06/24/18 07:33 06/24/18 07:33 06/24/18 07:33 06/24/18 07:33 06/24/18 07:33 Exam: General: alert, awake, oriented, pleasant. HEENT: normocephalic, atraumatic CV: regular rate and rhythm, no murmurs Resp: decreased breath sounds, wheezes bilaterally Abdomen: soft, no tenderness, no guarding, normal bowel sounds Extremities: pedal edema, warm to touch - Assessment and Plan (1) Acute respiratory failure with hypoxia Current Visit: No Status: Acute Assessment and Plan: Most likely secondary to COPD exacerbation with underlying diastolic CHF. Patient's O2 Sat was 94% on BiPAP at time of encounter, but patient's O2 sat dropped into 80s last night. No acute respiratory distress at this time, patient was oriented, awake and alert. CXR today showed no pneumothorax, clear lung travis, costophrenic angles sharp and normal cardiomediastinal size. Continue BiPAP, with CPAP at qH Continue NIV, Levaquin (day 2 of 5 day regime), continue albuterol q4h, continue steroids q6h Continue to monitor, lasix as needed (2) Asthma with acute exacerbation in adult Current Visit: Yes Status: Acute Assessment and Plan: Wheezing bilaterally with history of admissions for asthma exacerbations. Prev iously recorded as COPD exacerbation but history of asthma exacerbations with treatment outpatient by Dr. Simone Jacinto on board, wants to continue systemic glucocorticoids with prolonged taper (starting at 40mg decreasing 10mg weekly) with continuation of bronchodilators. Also recommends CT scan without contrast for chronicity of respiratory symptoms with CVID underlying as well as blood and urine cultures. Follow up on urine Legionella and Strep pneumo antigen. Continue monitoring. (3) Lactic acidosis Current Visit: No Status: Resolved Assessment and Plan: Lactic acid was 6.4 at time of admission on 06/22/182231, was 1.0 at 06/23/18219. Initially patient was meeting criteria for severe sepsis with HR in the upper 90's, leukocytosis and elevated lactic Patient did not receive 30cc/kg bolus due to Hx of CHF and edema on CXR and lower extremities Suspected vital and lab abnormalities due to Asthma exacerbation rather than systemic infection at this time. Resolved with treatment for hypoxia/asthma exacerbation Currently resolved, thought to be lactic acidotic secondary to hypoxia. (4) Diastolic CHF Current Visit: No Status: Acute Assessment and Plan: EF 60-65%, BNP 67 Tracking I/Os, continue monitoring, continue holding Lasix due to elevated Creatinine/BARRON. (5) Acute kidney injury Current Visit: No Status: Acute Assessment and Plan: Creatinine 1.45 in setting of CKDIII. On prior admission patient had normal renal function. Suspect BARRON due to hypoxia due to Asthma exacerbation. Creat 1.37->1.27->1.45 Continue to monitor, continue hold lasix (6) NACHO (obstructive sleep apnea) Current Visit: No Status: Chronic Assessment and Plan: Last night SpO2 in 80s with dyspnea was noted, relieved with duonebs. Continue CPAP at night and Duonebs QID. Continue monitoring SpO2 and breathing status overnight. (7) Immune deficiency disorder Current Visit: No Status: Chronic Assessment and Plan: Patient reports immune deficiency disorder for which she takes Hizentra weekly Family to bring medication in for administration Will consult allergy/Immunology outpatient She takes hers SQ, and not as an infusion DVT Prophylaxis: Heparin 5000 q8h - Time Spent with Patient Total time spent is greater than 50% in coordination of care (as documented) at patient's floor/unit and/or counseling patient: Internal Medicine: Result - Labs CBC & Chem 7: 06/24/18 15:06 06/24/18 15:06 - Impressions Impressions Chest X-Ray 06/24/18 23:36 IMPRESSION: Negative portable chest. D/ / Nicholas Gallego MD / Nicholas Gallego MD Interpreting Provider: Nicholas Gallego MD <Antwon Nye - Last Filed: 06/24/18 14:25> (1) Acute on chronic respiratory failure Qualifiers: Respiratory failure complication: hypoxia Qualified Code(s): J96.21 - Acute and chronic respiratory failure with hypoxia (3) CHF exacerbation Qualifiers: Heart failure type: diastolic Qualified Code(s): I50.33 - Acute on chronic diastolic (congestive) heart failure (6) HTN (hypertension) Qualifiers: Hypertension type: essential hypertension Qualified Code(s): I10 - Essential (primary) hypertension <Brenton Howard - Last Filed: 06/24/18 16:56> (2) Asthma with acute exacerbation in adult Qualifiers: Asthma severity: severe Asthma persistence: persistent Qualified Code(s): J45.51 - Severe persistent asthma with (acute) exacerbation (4) Diastolic CHF Qualifiers: Heart failure chronicity: acute on chronic Qualified Code(s): I50.33 - Acute on chronic diastolic (congestive) heart failure
[2018-06-24 12:25] LABS: Adenovirus Not Detected (Not Detect); Bordetella Pertussis Not Detected (Not Detect); Chlamydophila pneumoniae Not Detected (Not Detect); Coronavirus 229E Not Detected (Not Detect); Coronavirus HKU1 Not Detected (Not Detect); Coronavirus NL63 Not Detected (Not Detect); Coronavirus OC43 Not Detected (Not Detect); Human Metapneumovirus Not Detected (Not Detect); Human Rhinovirus/Enterovirus Not Detected (Not Detect); Influenza A Subtype 2009 H1 Not Detected (Not Detect); Influenza A Untypeable Not Detected (Not Detect); Influenza B Not Detected (Not Detect); Mycoplasma pneumoniae Not Detected (Not Detect); Parainfluenza Virus 1 Not Detected (Not Detect); Parainfluenza Virus 2 Not Detected (Not Detect); Parainfluenza Virus 3 Not Detected (Not Detect); Parainfluenza Virus 4 Not Detected (Not Detect); Respiratory Syncytial Virus Not Detected (Not Detect)
--- NOTE | 2018-06-24 14:16 | Pulmonology Consult Note ---
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 She presented with acute on chronic hypoxic hypercapnic respiratory failure and lactic acidosis which appears to be mediated by asthma exacerbation. She also had an elevated leukocytosis without any overt evidence of pneumonia on chest x-ray but she does have evidence of increased pulmonary vascular congestion in keeping with her known diagnosis of heart failure with preserved ejection fraction. She will need be weaned down to FiO2 to keep saturation greater than 885 and ideally around 92-94%. Recommend formal walking pulse oximetry study prior to Discharge to evaluate for home-going oxygen. For the standpoint of asthma agree with systemic glucocorticoids and day given the persistent nature of her symptoms she will need a prolonged taper starting at 40 mg which can be decreased by 10 mg weekly I suspect she will need to be on a low dose which is tender 5 mg of prednisone for the procedure well future. This can be clearly optimized in the outpatient setting with her primary respite worker. In the interim recommending continuation of her schedule bronchodilators including Symbicort twice daily. It is unclear that she has acute infectious process or if her leukocytosis is more reflection of stress response in any event given her immune system deficiency I think it is reasonable to cover with antimicrobials at this time. Respiratory infection panel is negative would do recommend obtaining sputum culture if possible as well as blood and urine cultures if not already sent urine Legionella and strep pneumo antigens have been ordered wean follow-up on these. It spend approximately [address] scan has been obtained and given the chronicity of her respiratory symptoms with known CVID I recommend noncontrasted CT scan for further evaluation and we can evaluate if any chronic changes or acute for that matter that would need to be followed up on an which could be contributing to her uncontrolled asthma From the standpoint of her sleep disorder breathing she should continue to wear positive airway pressure with naps and with sleep and she can wear it for any sort of respiratory distress to improve her work of breathing. She presented with a mild BARRON in the context of NANCY inhibitor use this probably should be held the acute setting and I discussed this with the pharmacist who relayed by message to the primary hospitalist given that she is been undergoing some active diuresis and the benefit of the low dose of NANCY inhibitor at this point remains unclear. I do not feel that she is clearly volume overloaded on examination I do not think any more aggressive IV diuretic is necessary but she should be maintained on the oral diuretic such as 20 or 40 mg of Lasix probably for the foreseeable future - she can follow-up with her PCP for this She will need to have chemical DVT prophylaxis while inpatient less contraindication should arise Pulmonary will continue to follow thank you very much for this consultation - I anticipate discharge sometime over the weekend she has a pulmonary follow-up appointment with her primary respite worker (Dr Loera) on July 01 and a dvised her to keep that appointment Qualifiers: Asthma severity: severe Asthma persistence: persistent Qualified Code(s): J45.51 - Severe persistent asthma with (acute) exacerbation (2) (HFpEF) heart failure with preserved ejection fraction Current Visit: Yes Status: Acute (3) NACHO (obstructive sleep apnea) Current Visit: No Status: Chronic (4) Acute on chronic respiratory failure Current Visit: No Status: Acute Qualifiers: Respiratory failure complication: hypoxia Qualified Code(s): J96.21 - Acute and chronic respiratory failure with hypoxia (5) Lactic acidosis Current Visit: No Status: Acute (6) BARRON (acute kidney injury) Current Visit: No Status: Resolved (7) Immune deficiency disorder Current Visit: No Status: Chronic History of Present Illness Consult date: 06/24/18 Requesting physician: Antwon Nye Reason for consult: asthma Chief complaint: Difficulty in breathing History of present illness: This is a pleasant 78-year-old woman with a past medical history of severe persistent asthma she also has a 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 She states that her breathing standpoint her asthma has not been well controlled for many months but on Wednesday after she had a home infusion she began to feel much more chest tightness more lethargy and increased cough with sputum production. She knew that things are getting bad so she called her daughter and apparently she was found passed out and EMS was called and she presented to the emergency department after being found with approximately 50% oxygen saturation at home. In the emergency department she has noted to have a VBG done which was notable for acidosis is 7-1 and an elevated lactate she also had mild acute kidney injury chest x-ray showed increased pulmonary vascular congestion her white count was elevated but she was afebrile after being given bronchodilators and C PAP as well as increase in supplemental oxygen she clinically began to recover very quickly. She since been weaned off BiPAP and is now stating that her breathing is much better than where she came in. She was started on Levaquin which she continues to take now she got a few doses of IV diuretic and generally situation appears to be improving. Today she denies any complaints except that she is concerned about the overall nature of her obstructive lung disease Past Med Surg Social Fam HX - Past Medical History Medical history: asthma, hyperlipidemia, hypertension Additional medical history: vocal cord disfunction Psychiatric history: anxiety, panic disorder - Past Surgical History Surgical History: , cholecystectomy, knee replacement, orthopedic, other, other Additional surgical history: carpal tunnel release R. knee replacement bilateral - Social History Smoking Status: Never smoker Smokeless Tobacco Status: No Alcohol use: none Drug use: none - Family History Mother Living Status: Hx Family Cardiac Disorders: Yes Hx Family Respiratory Disorders: Yes Father Living Status: Hx Family Cardiac Disorders: Yes Medications and Allergies BuPROPion [Wellbutrin] 100 mg PO BID 09/20/15 [History] Lisinopril [Zestril] 10 mg PO DAILY 09/20/15 [History] Ropinirole HCl [Requip] 2 mg PO TID 09/20/15 [History] Simvastatin [Zocor] 20 mg PO HS 09/20/15 [History] Albuterol Sulfate [Ventolin Hfa] 2 puff IH Q4H PRN 10/17/15 [History] Oxygen 2 l NS AD 10/17/15 [History] Aspirin 81 mg PO DAILY 03/10/16 [History] Cholecalciferol (D-3) [Vitamin D] 1,000 unit PO DAILY 03/10/16 [History] Potassium Chloride [K-Tab ER] 20 meq PO DAILY #30 tablet.er 03/17/16 [Rx] Omeprazole [PriLOSEC] 20 mg PO DAILY 05/20/16 [History] Budesonide/Formoterol 160/4.5 [Symbicort 160/4.5] 2 puff IH BIDR 11/21/16 [History] Albuterol Neb [Proventil Neb] 2.5 mg IH Q8H PRN 04/05/18 [History] Paroxetine [Paxil] 20 mg PO DAILY 04/05/18 [History] Immun Glob G(IgG)/Pro/Iga 0-50 [Hizentra 10 Gram/50 ml Vial] 15 gm SQ WE 04/06/18 [History] Furosemide [Lasix] 40 mg PO DAILY #30 tablet 04/07/18 [Rx] Loratadine [Claritin] 10 mg PO DAILY 06/23/18 [History] Umeclidinium Aurora [Incruse Ellipta] 1 puff IH DAILY 06/23/18 [History] Allergy/AdvReac Type Severity Reaction Status Date / Time No Known Allergies Allergy Verified 06/23/18 14:54 All Systems: The remainder of the systems were reviewed and are negative Physical Examination Vital Signs: Vital Signs, Last 4 Hours Temp Pulse Resp BP Pulse Ox 06/24/18 11:24 98.3 F 85 16 160/62 95 06/24/18 11:12 20 96 General appearance: no acute distress Eyes: nonicteric Neck: supple Effort: normal Auscultation: bilateral: diminished breath sounds, wheezes Cardiovascular: regular rate and rhythm Gastrointestinal: normoactive bowel sounds, soft, non-tender Integumentary: normal Extremities: no cyanosis, no clubbing, pink and warm, edema (trace b/l pitting edema ) Musculoskeletal: no deformities normal mental status, non-focal exam mood appropriate Results - Laboratory Findings CBC and BMP: 06/23/18 02:20 06/23/18 02:20 Abnormal lab findings: Abnormal lab results WBC 12.6 K/mcL (4.3-11.1) H 06/23/18 02:20 Neutrophils # 11.4 K/mcL (1.6-8.9) H 06/23/18 02:20 Clumped Platelets Few (Not Present) A 06/22/18 22:20 VBG pH 7.21 pH Units (7.32-7.42) L 06/22/18 22:59 VBG pO2 140 mmHg (25-50) H 06/22/18 22:59 VBG HCO3 19 mEq/L (21-27) L 06/22/18 22:59 BUN 27 mg/dL (8-23) H 06/23/18 02:20 Creatinine 1.27 mg/dL (0.60-1.20) H 06/23/18 02:20 Est GFR ( Amer) 49 (> 60) L 06/23/18 02:20 Est GFR (Non-Af Amer) 40 (> 60) L 06/23/18 02:20 Glucose 136 mg/dL (70-105) H 06/23/18 02:20 - Microbiology Findings Microbiology Findings: Microbiology, Last 48 Hours 06/22/18 22:32 Blood Culture - Preliminary Peripheral Venipuncture Culture is incubating and being continuously monitored for growth. Final report to follow. 06/22/18 22:32 Blood Culture - Preliminary Peripheral Venipuncture Culture is incubating and being continuously monitored for growth. Final report to follow. - Diagnostic Findings Chest x-ray: report reviewed, image reviewed - Clinical Findings Intake & Output: Intake & Output 06/23/18 06/24/18 06/24/18 23:59 07:59 15:59 Intake Total 960 / 960 Output Total 250 / 250 220 / 220 250 / 250 Balance -250 / -250 -220 / -220 710 / 710 Weight 105.9 kg 105.9 kg Consult Discharge Plan - Plan Referrals: Alex Loera MD [Partnered Physician] - 07/01/18 1:00 pm Amber Wright CNP [Advanced Practice Nurse] - 07/01/18 3:00 pm
[2018-06-24 15:39] LABS: Basophils % 0.1 %; Eosinophils % 0.1 %; Hematocrit 40.9 % (35.3-44.9); Hemoglobin 13.6 g/dL (11.5-15.4); Immature Granulocytes % 0.4 % (0-4); Lymphocytes # 0.4 K/mcL (0.6-4.6); Lymphocytes % 2.6 %; Mean Corpuscular HGB Conc 33.3 g/dL (31.6-35.5); Mean Corpuscular Hemoglobin 31.9 pg (28.0-33.3); Mean Corpuscular Volume 95.8 fL (83.0-100.0); Mean Platelet Volume 11.8 fL (9.4-12.4); Monocytes # 0.5 K/mcL (0.0-1.3); Monocytes % 2.9 %; Neutrophils # 15.3 K/mcL (1.6-8.9); Platelet Count 186 K/mcL (140-400); Red Blood Count 4.27 M/mcL (3.82-4.97); Red Cell Distribution Width 13.6 % (11.5-14.5); Segmented Neutrophils % 93.9 %
[2018-06-24 15:51] LABS: Calcium 9.2 mg/dL (8.6-10.3); Potassium 4.3 mEq/L (3.5-5.1)
[2018-06-24] MEDS ORDERED: *HR* Dextrose 50 % in Water (Syg) 50 ML SYRINGE IVP PRN (16:11)
[2018-06-24] MEDS ORDERED: D5% in Water 1,000 ML IVC PRN (16:11)
[2018-06-24] MEDS ORDERED: Dextrose Gel 15 GM/37.5 ML TUBE PO PRN ×2 (16:11)
[2018-06-24] MEDS: Insulin LISPRO 300 UNITS/3 ML VIAL SQ SCH ×3 (17:19→20:16)
[2018-06-25] MEDS: MethylPREDNISolone 40 MG/ML VIAL IVP SCH ×4 (00:38→17:10)
[2018-06-25] MEDS: Albuterol 2.5 MG/3 ML NEBULIZER IH SCH ×5 (03:05→20:02)
[2018-06-25 03:11] LABS: Basophils % 0.1 %; Hematocrit 39.3 % (35.3-44.9); Hemoglobin 13.3 g/dL (11.5-15.4); Immature Granulocytes % 0.7 % (0-4); Lymphocytes # 0.5 K/mcL (0.6-4.6); Lymphocytes % 3.5 %; Mean Corpuscular HGB Conc 33.8 g/dL (31.6-35.5); Mean Corpuscular Hemoglobin 31.9 pg (28.0-33.3); Mean Corpuscular Volume 94.2 fL (83.0-100.0); Mean Platelet Volume 11.3 fL (9.4-12.4); Monocytes # 0.5 K/mcL (0.0-1.3); Monocytes % 3.4 %; Neutrophils # 13.8 K/mcL (1.6-8.9); Platelet Count 175 K/mcL (140-400); Red Blood Count 4.17 M/mcL (3.82-4.97); Red Cell Distribution Width 13.6 % (11.5-14.5); Segmented Neutrophils % 92.3 %
[2018-06-25 03:47] LABS: Calcium 9.2 mg/dL (8.6-10.3); Potassium 4.6 mEq/L (3.5-5.1)
[2018-06-25] MEDS: Ipratropium/Albuterol Neb 3 ML IH SCH ×2 (05:47→11:18)
[2018-06-25] MEDS: *HR* Heparin 5,000 UNIT/ML VIAL SQ SCH ×3 (06:39→21:40)
[2018-06-25] MEDS: Budesonide/Formoterol 160/4.5 1 PUFF INH IH SCH ×2 (07:25→20:02)
[2018-06-25 07:44] LABS: Estimated Average Glucose 123 mg/dl; Hemoglobin A1C 5.9 %
[2018-06-25] MEDS: rOPINIRole 1 MG TABLET PO SCH ×3 (08:18→21:42)
[2018-06-25] MEDS: Furosemide 40 MG TABLET PO SCH (08:19)
[2018-06-25] MEDS: Loratadine 10 MG TABLET PO SCH (08:19)
[2018-06-25] MEDS: Aspirin 81 MG TAB.CHEW PO SCH (08:19)
[2018-06-25] MEDS: Cholecalciferol (D-3) 1,000 UNIT TABLET PO SCH (08:19)
[2018-06-25] MEDS: Levofloxacin 750 MG/150 ML 750 MG/150 ML BAG IVPB SCH (08:19)
[2018-06-25] MEDS: Insulin LISPRO 300 UNITS/3 ML VIAL SQ SCH ×4 (08:20→21:39)
--- NOTE | 2018-06-25 08:43 | Pulmonology Progress Note ---
Date of Encounter: 06/25/18 Time of Encounter: 08:43 Assessment and Plan (1) Asthma with acute exacerbation in adult Current Visit: Yes Status: Acute This is an 78-year-old woman with severe persistent asthma difficult to control with frequent exacerbations she presented with acute on chronic hypoxic hypercapnic respiratory failure secondary to COPD exacerbation this is improved overall she is doing much better. -She will need to be discharged on prednisone 40 mg which should be tapered weekly 40 mg 2 should not be decreased until she is seen by her primary control room helper -Continue her home regimen of bronchodilators which include Symbicort twice vera Spiriva ly and short acting nebulized treatments -Recommend 5 days of treatment with antibiotics for possible bronchitis -No CT scan findings that her acutely abnormal -Continue CPAP at night for sleep disorder breathing -IVIG per immunology for CVID -DVT prophylaxis while inpatient -Renal dose all meds Pulmonary will follow in the outpatient setting thank you for this consultation we will sign off Qualifiers: Asthma severity: severe Asthma persistence: persistent Qualified Code(s): J45.51 - Severe persistent asthma with (acute) exacerbation (2) (HFpEF) heart failure with preserved ejection fraction Current Visit: Yes Status: Acute (3) NACHO (obstructive sleep apnea) Current Visit: No Status: Chronic (4) Acute on chronic respiratory failure Current Visit: No Status: Acute Qualifiers: Respiratory failure complication: hypoxia Qualified Code(s): J96.21 - Acute and chronic respiratory failure with hypoxia (5) Immune deficiency disorder Current Visit: No Status: Chronic Subjective Principal diagnosis: Asthma Exacerbation Interval history: Nora says she is feeling much better today. She is anticipating going to a long-term facility the little bit stronger so she is better equipped to take care of herself Objective PUL Vital signs: Last Vital Signs Temp 98.2 F 06/25/18 08:15 Pulse 83 06/25/18 08:15 Resp 18 06/25/18 08:15 BP 143/63 06/25/18 07:25 Pulse Ox 93 06/25/18 08:15 General appearance: no acute distress Eyes: nonicteric Auscultation: bilateral: clear (Wheezing has essentially resolved at this point) Cardiovascular: regular rate and rhythm Gastrointestinal: normoactive bowel sounds Integumentary: normal Extremities: edema Musculoskeletal: no deformities normal mental status, non-focal exam mood appropriate Results - Laboratory Findings CBC and BMP: 06/25/18 02:54 12/08/18 02:54 Abnormal lab findings: Abnormal lab results WBC 14.9 K/mcL (4.3-11.1) H 06/25/18 02:54 Neutrophils # 13.8 K/mcL (1.6-8.9) H 06/25/18 02:54 Lymphocytes # 0.5 K/mcL (0.6-4.6) L 06/25/18 02:54 Clumped Platelets Few (Not Present) A 06/22/18 22:20 VBG pH 7.21 pH Units (7.32-7.42) L 06/22/18 22:59 VBG pO2 140 mmHg (25-50) H 06/22/18 22:59 VBG HCO3 19 mEq/L (21-27) L 06/22/18 22:59 Carbon Dioxide 21 mEq/L (23-29) L 06/25/18 02:54 BUN 46 mg/dL (8-23) H 06/25/18 02:54 Creatinine 1.35 mg/dL (0.60-1.20) H 06/25/18 02:54 Est GFR ( Amer) 46 (> 60) L 06/25/18 02:54 Est GFR (Non-Af Amer) 38 (> 60) L 06/25/18 02:54 BUN/Creatinine Ratio 34 (6-26) H 06/25/18 02:54 Glucose 251 mg/dL (70-105) H 06/25/18 02:54 POC Glucose 294 mg/dL (70-99) H 06/24/18 20:12 Hemoglobin A1c 5.9 % (-5.6) H 06/25/18 02:54 Calculated Osmolality 304 (280-300) H 06/25/18 02:54 - Microbiology Findings Microbiology Findings: Microbiology, Last 48 Hours 06/24/18 15:30 Legionella Antigen - Final Urine,Catheterized Streptococcus pneumoniae Antigen (M - Final - Diagnostic Findings CT scan - chest: report reviewed, image reviewed - Clinical Findings Intake & Output: Intake & Output 06/24/18 06/25/18 06/25/18 23:59 07:59 15:59 Intake Total 480 / 480 Output Total 400 / 400 Balance 80 / 80 Weight 106 kg Consult Discharge Plan - Plan Referrals: Alex Loera MD [Partnered Physician] - 07/01/18 1:00 pm Amber Wright CNP [Advanced Practice Nurse] - 07/01/18 3:00 pm
[2018-06-25] MEDS: Benzonatate 100 MG CAPSULE PO PRN (11:09)
--- NOTE | 2018-06-25 17:20 | Internal Med Progress Note ---
Hospitalist Progress Note - Encounter Date of Encounter: 06/25/18 Time of Encounter: 11:50 - Subjective Interval History: Ms Ga is currently admitted for acute on chronic hypoxic resp failure and asthma. She remains moderate to high risk due to potential for worsening clinical status. Ms Ga feels somewhat better today. She is still coughing but Tessalon helps some. No CP. No fever or chills. No GI issues. She has been able to move more and would like to go to rehab at [facility]. Awaiting PT and OT to see her. - Exam Vitals: Temp Pulse Resp BP Pulse Ox 98.8 F 75 16 164/59 96 06/25/18 11:11 06/25/18 11:11 06/25/18 15:40 06/25/18 11:11 06/25/18 15:40 Exam: General: alert, awake, oriented, pleasant. Appears comfortable up in chair. H: normocephalic, atraumatic EENT: Mucus membranes moist CV: regular rate and rhythm, no murmurs. Not tachycardic Resp: Less wheeze at this time. No rhonchi or rales heard. Abdomen: soft, no tenderness, no guarding, normal bowel sounds Extremities: pedal edema, warm to touch Neuro: moves all extremities Pulses palpable. - Assessment and Plan (1) Acute on chronic respiratory failure Current Visit: No Status: Acute Assessment and Plan: Pt admitted with hypoxemia. Currently on 3 liters and comfortable. (2) Asthma with acute exacerbation in adult Current Visit: Yes Status: Acute Assessment and Plan: Seems to be slowly improving. Still with cough being treated with Tessalon Perles and has improved some. Appreciate pulm input. Will transition steroids. (3) CHF exacerbation Current Visit: No Status: Resolved Assessment and Plan: Pt currently appears to be less volume overloaded. Continue home dose of diuretic. (4) NACHO (obstructive sleep apnea) Current Visit: No Status: Chronic Assessment and Plan: Continue home CPAP. (5) HTN (hypertension) Current Visit: No Status: Chronic Assessment and Plan: BP higher today. Will assess meds and continue any home meds at this time. 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 - Time Spent with Patient Total time spent is greater than 50% in coordination of care (as documented) at patient's floor/unit and/or counseling patient: Internal Medicine: Result - Labs CBC & Chem 7: 06/25/18 02:54 06/25/18 02:54 Labs: Short CBC 06/25/18 Range/Units 02:54 WBC 14.9 H (4.3-11.1) K/mcL Hgb 13.3 (11.5-15.4) g/dL Hct 39.3 (35.3-44.9) % Plt Count 175 (140-400) K/mcL Neutrophils # 13.8 H (1.6-8.9) K/mcL BMP 06/25/18 02:54 Sodium 137 Potassium 4.6 Chloride 104 Carbon Dioxide 21 L BUN 46 H Creatinine 1.35 H Glucose 251 H Calcium 9.2 - Impressions Impressions Chest CT 06/24/18 20:00 IMPRESSION: 1. No acute intrathoracic process. 2. A 0.5 cm nodule is noted in the left lower lobe, not seen on the previous study from 03/11/2016. Follow-up recommendations below. 3. Sequelae of granulomatous disease. RECOMMENDATIONS: Fleischner Society guidelines for follow-up and management of incidentally detected pulmonary nodules: Single Solid Nodule: Nodule size less than 6 mm In a low-risk patient, no routine follow-up. In a high-risk patient, optional CT at 12 months. -Low risk patients include individuals with minimal or absent history of smoking and other known risk factors. - High risk patients include individuals with a history or smoking or known risk factors. Radiology 2017 http://pubs.rsna.org/doi/full/10.1148/radiol.[email or web address] D/ / 06/24/2018 22:18:23 Arpita Peck / jose manuel Interpreting Provider: Arpita Peck Consult Discharge Plan - Plan Referrals: Alex Loera MD [Partnered Physician] - 07/01/18 1:00 pm Amber Wright CNP [Advanced Practice Nurse] - 07/01/18 3:00 pm (1) Acute on chronic respiratory failure Qualifiers: Respiratory failure complication: hypoxia Qualified Code(s): J96.21 - Acute and chronic respiratory failure with hypoxia (2) Asthma with acute exacerbation in adult Qualifiers: Asthma severity: severe Asthma persistence: persistent Qualified Code(s): J45.51 - Severe persistent asthma with (acute) exacerbation (3) CHF exacerbation Qualifiers: Heart failure type: diastolic Qualified Code(s): I50.33 - Acute on chronic diastolic (congestive) heart failure (5) HTN (hypertension) Qualifiers: Hypertension type: essential hypertension Qualified Code(s): I10 - Essential (primary) hypertension
[2018-06-25] MEDS: amLODIPine 5 MG TABLET PO SCH (18:21)
[2018-06-26] MEDS: Albuterol 2.5 MG/3 ML NEBULIZER IH SCH ×7 (00:06→23:54)
[2018-06-26 04:32] LABS: Hematocrit 37.7 % (35.3-44.9); Hemoglobin 12.8 g/dL (11.5-15.4); Mean Corpuscular Hemoglobin 32.2 pg (28.0-33.3); Mean Platelet Volume 11.8 fL (9.4-12.4); Platelet Count 153 K/mcL (140-400); Red Blood Count 3.97 M/mcL (3.82-4.97); Red Cell Distribution Width 13.3 % (11.5-14.5)
[2018-06-26 04:51] LABS: Calcium 8.8 mg/dL (8.6-10.3); Potassium 3.9 mEq/L (3.5-5.1)
[2018-06-26] MEDS: MethylPREDNISolone 40 MG/ML VIAL IVP SCH ×2 (04:57→17:18)
[2018-06-26] MEDS: *HR* Heparin 5,000 UNIT/ML VIAL SQ SCH ×3 (04:57→21:50)
[2018-06-26] MEDS: Budesonide/Formoterol 160/4.5 1 PUFF INH IH SCH ×2 (08:06→20:16)
[2018-06-26] MEDS: Insulin LISPRO 300 UNITS/3 ML VIAL SQ SCH ×4 (08:34→21:49)
[2018-06-26] MEDS: rOPINIRole 1 MG TABLET PO SCH ×3 (08:34→22:25)
[2018-06-26] MEDS: Furosemide 40 MG TABLET PO SCH (08:34)
[2018-06-26] MEDS: Cholecalciferol (D-3) 1,000 UNIT TABLET PO SCH (08:34)
[2018-06-26] MEDS: amLODIPine 5 MG TABLET PO SCH (08:35)
[2018-06-26] MEDS: Aspirin 81 MG TAB.CHEW PO SCH (08:35)
[2018-06-26] MEDS: Loratadine 10 MG TABLET PO SCH (08:35)
[2018-06-26] MEDS ORDERED: D5% in Water 1,000 ML IVC PRN (12:34)
--- NOTE | 2018-06-26 12:57 | Internal Med Progress Note ---
Hospitalist Progress Note - Encounter Date of Encounter: 06/26/18 Time of Encounter: 08:00 - Subjective Interval History: Ms Ga is currently admitted for acute on chronic hypoxic resp failure and asthma. She remains moderate to high risk due to potential for worsening clinical status. Ms Ga is up to eat breakfast. No fever or chills. No CP. Still with some cough and congestion. Has not been seen by PT and OT yet. She is hoping to go to [facility] soon. Bowels OK. - Exam Vitals: Temp Pulse Resp BP Pulse Ox 98.0 F 76 20 157/68 97 06/26/18 11:40 06/26/18 11:40 06/26/18 11:40 06/26/18 11:40 06/26/18 11:40 Exam: General: alert, awake, oriented, pleasant. Appears comfortable up in chair. H: normocephalic, atraumatic EENT: Mucus membranes moist. No lesion. CV: regular rate and rhythm, no murmurs. Not tachycardic at this time. Resp: Good air movement. Scattered rhonchi in bases. Abdomen: soft, no tenderness, normal bowel sounds Extremities: pedal edema, warm to touch No rash. Neuro: moves all extremities Pulses palpable. - Assessment and Plan (1) Hyperglycemia Current Visit: Yes Status: Acute Assessment and Plan: Blood sugar higher over last 48hours. Will evaluate meds and continue accuchecks and coverage. (2) Acute on chronic respiratory failure Current Visit: No Status: Acute Assessment and Plan: Pt admitted with hypoxemia. Comfortable on current level of oxygen. (3) Asthma with acute exacerbation in adult Current Visit: Yes Status: Acute Assessment and Plan: Continues to slowly improved. Will evaluate steroids. Continue other aerosols and supportive care. (4) CHF exacerbation Current Visit: No Status: Resolved Assessment and Plan: Pt currently appears to be improved. Continue home dose of diuretic. (5) NACHO (obstructive sleep apnea) Current Visit: No Status: Chronic Assessment and Plan: Continue home CPAP. (6) HTN (hypertension) Current Visit: No Status: Chronic Assessment and Plan: BP continues to be slightly higher. Adjust meds today. (7) Deficient, immunity, 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 Assessment and Plan: Continue home med IG. - Time Spent with Patient Total time spent is greater than 50% in coordination of care (as documented) at patient's floor/unit and/or counseling patient: Internal Medicine: Result - Labs CBC & Chem 7: 06/26/18 03:35 06/26/18 03:35 Labs: Short CBC 06/26/18 Range/Units 03:35 WBC 10.1 (4.3-11.1) K/mcL Hgb 12.8 (11.5-15.4) g/dL Hct 37.7 (35.3-44.9) % Plt Count 153 (140-400) K/mcL BMP 06/26/18 03:35 Sodium 135 L Potassium 3.9 Chloride 101 Carbon Dioxide 24 BUN 43 H Creatinine 1.14 Glucose 297 H Calcium 8.8 Consult Discharge Plan - Plan Referrals: Alex Loera MD [Partnered Physician] - 07/01/18 1:00 pm Amber Wright CNP [Advanced Practice Nurse] - 07/01/18 3:00 pm (2) Acute on chronic respiratory failure Qualifiers: Respiratory failure complication: hypoxia Qualified Code(s): J96.21 - Acute and chronic respiratory failure with hypoxia (3) Asthma with acute exacerbation in adult Qualifiers: Asthma severity: severe Asthma persistence: persistent Qualified Code(s): J45.51 - Severe persistent asthma with (acute) exacerbation (4) CHF exacerbation Qualifiers: Heart failure type: diastolic Qualified Code(s): I50.33 - Acute on chronic diastolic (congestive) heart failure (6) HTN (hypertension) Qualifiers: Hypertension type: essential hypertension Qualified Code(s): I10 - Essential (primary) hypertension
[2018-06-26] MEDS: Benzonatate 100 MG CAPSULE PO PRN (22:25)
[2018-06-26] MEDS: Nystatin POWDER 30 GM BOTTLE TP SCH (22:27)
[2018-06-27 03:32] LABS: Calcium 8.6 mg/dL (8.6-10.3); Potassium 4.3 mEq/L (3.5-5.1)
[2018-06-27] MEDS: Albuterol 2.5 MG/3 ML NEBULIZER IH SCH ×5 (04:08→19:46)
[2018-06-27] MEDS: *HR* Heparin 5,000 UNIT/ML VIAL SQ SCH ×3 (05:12→22:01)
[2018-06-27] MEDS: MethylPREDNISolone 40 MG/ML VIAL IVP SCH (05:12)
[2018-06-27] MEDS: amLODIPine 5 MG TABLET PO SCH (07:47)
[2018-06-27] MEDS: rOPINIRole 1 MG TABLET PO SCH ×3 (07:47→22:04)
[2018-06-27] MEDS: predniSONE 20 MG TABLET PO SCH (07:47)
[2018-06-27] MEDS: Cholecalciferol (D-3) 1,000 UNIT TABLET PO SCH (07:47)
[2018-06-27] MEDS: Aspirin 81 MG TAB.CHEW PO SCH (07:47)
[2018-06-27] MEDS: Insulin LISPRO 300 UNITS/3 ML VIAL SQ SCH ×4 (07:48→22:05)
[2018-06-27] MEDS: Loratadine 10 MG TABLET PO SCH (07:48)
[2018-06-27] MEDS: Budesonide/Formoterol 160/4.5 1 PUFF INH IH SCH ×2 (07:53→19:46)
[2018-06-27] MEDS: Furosemide 40 MG TABLET PO SCH (08:48)
[2018-06-27] MEDS: Nystatin POWDER 30 GM BOTTLE TP SCH ×2 (08:48→22:06)
[2018-06-27] MEDS ORDERED: levoFLOXacin 750 MG TABLET PO SCH (09:00)
--- NOTE | 2018-06-27 09:34 | Internal Med Progress Note ---
<Antwon Nye - Last Filed: 06/27/18 15:38> Hospitalist Progress Note - Encounter Date of Encounter: 06/27/18 - Exam Vitals: Temp Pulse Resp BP Pulse Ox 98.2 F 70 18 145/58 96 06/27/18 11:25 06/27/18 11:25 06/27/18 11:25 06/27/18 11:25 06/27/18 11:25 - Assessment and Plan (1) Hyperglycemia Current Visit: Yes Status: Acute (2) Acute on chronic respiratory failure Current Visit: No Status: Acute (3) Asthma with acute exacerbation in adult Current Visit: Yes Status: Acute (4) NACHO (obstructive sleep apnea) Current Visit: No Status: Chronic (5) HTN (hypertension) Current Visit: No Status: Chronic (6) Deficient, immunity, 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 - Time Spent with Patient Total time spent is greater than 50% in coordination of care (as documented) at patient's floor/unit and/or counseling patient: Internal Medicine: Result - Labs CBC & Chem 7: 06/26/18 03:35 06/27/18 02:55 Labs: BMP 06/27/18 02:55 Sodium 135 L Potassium 4.3 Chloride 100 Carbon Dioxide 28 BUN 44 H Creatinine 1.22 H Glucose 259 H Calcium 8.6 Consult Discharge Plan - Plan Referrals: lAex Loera MD [Partnered Physician] - 07/01/18 1:00 pm Amber Wright CNP [Advanced Practice Nurse] - 07/01/18 3:00 pm - Attending Attestation I examined this patient and my medical decision-making was reviewed with the Resident Physician on 06/27/18. I agree with the documented findings, disposition and treatment plan as described except to the extent set forth below. Ms Ga is currently admitted for acute exac asthma and hypoxia. She remains moderate to high risk due to potential for worsening clinical status. Ms Ga just got back from toilet. No fever or chills. SOB about the same. Lots of chest congestion with exertion. No CP. No diarrhea. Appetite OK. Exam alert. Comfortable up in chair. Mucus membranes dry Heart distant but not tachy Rhonchi heard bilaterally Abd soft. Moves all extremities. I/P 1. Acute on chronic hypoxic resp failure - back to her baseline level of oxygen supplementation. 2. Acute asthma exacerbation - on PO steroids. Completing course of Levaquin. Pulm rec Prednisone 40mg daily with slow taper. Will try to get appt with pulm in near future. 3. NACHO - continue home CPAP 4. Hyperglycemia - persists. Most likely related to steroids. Diet needs adjusted to diabetic. 5. HTN - seems to be improving with Norvasc 6. CVID - continue home med. Further diagnoses and plan as above. Awaiting approval for SNF. <JillJavier - Last Filed: 06/27/18 16:43> Hospitalist Progress Note - Encounter Date of Encounter: 06/27/18 Time of Encounter: 10:10 - Subjective Interval History: 06/27 Patient saw PT/OT today. Awaiting SNF pre-cert. 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 Possible underling bronchitis/pneumonia; completed 5 days of Levaquin, on steroids, on pulm toilet, O2 weaning. - Exam Vitals: Temp Pulse Resp BP Pulse Ox 97.9 F 59 18 137/70 97 06/27/18 07:19 06/27/18 07:19 06/27/18 07:53 06/27/18 07:19 06/27/18 07:53 Exam: General: alert, awake, oriented, pleasant. Appears comfortable up in chair. H: normocephalic, atraumatic EENT: Mucus membranes moist. No lesion. CV: regular rate and rhythm, no murmurs. Not tachycardic at this time. Resp: Good air movement. Mild-moderate end expiratory wheeze. Abdomen: soft, no tenderness, normal bowel sounds Extremities: pedal edema, warm to touch No rash. Neuro: moves all extremities Pulses palpable. - Assessment and Plan (1) Asthma with acute exacerbation in adult Current Visit: Yes Status: Acute Assessment and Plan: Appreciate pulmonology Plan: We will follow a prednisone taper starting at 40 mg for the first week, decreasing by 10 mg thereafter; to be seen in outpatient pulmonology clinic by the end of first week Levaquin has been completed for 5 day course Continuing her home regimen of bronchodilators/yelitza/prn as well as CPAP at night Follows immunolog for CVID (2) Acute on chronic respiratory failure with hypoxia and hypercapnia Current Visit: Yes Status: Acute Assessment and Plan: Resolved; essentially at baseline respiratory status Likely discharged tomorrow, she has placement; PT OT eval has been completed (3) Deficient, immunity, 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 Assessment and Plan: Follows immunology outpatient; continue IVIG regimen on discharge (4) HTN (hypertension) Current Visit: No Status: Chronic Assessment and Plan: Normotensive today with addition of Norvasc 5mg on top of home meds (5) Hyperglycemia Current Visit: Yes Status: Acute Assessment and Plan: In the setting of steroids, have added a basal insulin as well as changed her diet to an ADA diet (6) NACHO (obstructive sleep apnea) Current Visit: No Status: Chronic Assessment and Plan: Continue CPAP DVT Prophylaxis: Heparin 5000 q8h - Time Spent with Patient Total time spent is greater than 50% in coordination of care (as documented) at patient's floor/unit and/or counseling patient: Internal Medicine: Result - Labs CBC & Chem 7: 06/26/18 03:35 06/27/18 02:55 Labs: BMP 06/27/18 02:55 Sodium 135 L Potassium 4.3 Chloride 100 Carbon Dioxide 28 BUN 44 H Creatinine 1.22 H Glucose 259 H Calcium 8.6 <Antwon Nye - Last Filed: 06/27/18 15:38> (2) Acute on chronic respiratory failure Qualifiers: Respiratory failure complication: hypoxia Qualified Code(s): J96.21 - Acute and chronic respiratory failure with hypoxia (3) Asthma with acute exacerbation in adult Qualifiers: Asthma severity: severe Asthma persistence: persistent Qualified Code(s): J45.51 - Severe persistent asthma with (acute) exacerbation (5) HTN (hypertension) Qualifiers: Hypertension type: essential hypertension Qualified Code(s): I10 - Essential (primary) hypertension <Javier Melchor - Last Filed: 06/27/18 16:43> (1) Asthma with acute exacerbation in adult Qualifiers: Asthma severity: severe Asthma persistence: persistent Qualified Code(s): J45.51 - Severe persistent asthma with (acute) exacerbation (4) HTN (hypertension) Qualifiers: Hypertension type: essential hypertension Qualified Code(s): I10 - Essential (primary) hypertension
[2018-06-27] MEDS ORDERED: Insulin DETEMIR 100 UNIT/ML X5UNITS SQ SCH (21:00)
[2018-06-27] MEDS: Benzonatate 100 MG CAPSULE PO PRN (22:04)
[2018-06-28] MEDS: Albuterol 2.5 MG/3 ML NEBULIZER IH SCH ×4 (00:13→11:06)
[2018-06-28 05:56] LABS: Calcium 8.4 mg/dL (8.6-10.3); Potassium 3.8 mEq/L (3.5-5.1)
[2018-06-28] MEDS: *HR* Heparin 5,000 UNIT/ML VIAL SQ SCH (06:14)
[2018-06-28] MEDS: Budesonide/Formoterol 160/4.5 1 PUFF INH IH SCH (07:42)
--- NOTE | 2018-06-28 08:13 | Discharge Summary ---
<Javier Melchor - Last Filed: 06/28/18 17:25> - NOTES TO OUTPATIENT PROVIDER Notes to Outpatient Provider: Discharging to SNF; will be on prolonged steroid taper per Pulm: 40mg po daily x 1 week, decreased by 10mg per week thereafter, to see pulm outpatient within the week, has appt 07/01. Recommended seeing PCP Dr. Mcclelland for hosp f/u as well. Completed 5 days of Levaquin. Continuing home asthma medications Orders not resulted at time of discharge: Pending orders 06/22/18 22:32 Culture,Blood [BC] Stat Date of Encounter: 06/28/18 Time of Encounter: 09:00 - Discharge Diagnosis (1) Asthma with acute exacerbation in adult Priority: Primary Status: Acute Qualifiers: Asthma severity: severe Asthma persistence: persistent Qualified Code(s): J45.51 - Severe persistent asthma with (acute) exacerbation (2) Acute on chronic respiratory failure with hypoxia and hypercapnia Priority: Secondary Status: Acute (3) Deficient, immunity, common variable Priority: Secondary Status: Chronic (4) HTN (hypertension) Priority: Secondary Status: Chronic Qualifiers: Hypertension type: essential hypertension Qualified Code(s): I10 - Essential (primary) hypertension (5) Hyperglycemia Priority: Secondary Status: Acute (6) NACHO (obstructive sleep apnea) Priority: Secondary Status: Chronic Hospital course: Patient is an 78F with PMHx of CHF, asthma, COPD 2LNC, CKDIII, HTN, HLD, Common variable ID, NACHO, and CAD; patient lives at home by herself and is on 2LNC chronically. Patient states over the past week she has had increased difficulty with breathing and productive cough. Patient was retrieved by [employer] and found to have oxygen saturation in the 50%. Patient responded well to BiPAP, steroids and breathing treatments in the ED, was admitted for acute on chronic asthma exacerbation. Patient completed a 5 day course of Levaquin, Pulm consulted, recommending prolonged taper (40 x 1wk, 30, 20, 10 thereafter), her breathing treatments were updated to q4 instead of q8 at home. She will follow-up with Pulm as well as her PCP outpatient. Sliding scale insulin will be continued outpatient in setting of steroid use. She is being discharged to an ECF. Discharge discussed with: patient - Time Spent with Patient Total time spent providing and/or coordinating discharge services: - Discharge Medications Prescriptions: predniSONE [Prednisone] 10 mg PO TAPER 28 Days #70 tab.ds.pk Home Medications: BuPROPion [Wellbutrin] 100 mg PO BID 09/20/15 [History] Lisinopril [Zestril] 10 mg PO DAILY 09/20/15 [History] Ropinirole HCl [Requip] 2 mg PO TID 09/20/15 [History] Simvastatin [Zocor] 20 mg PO HS 09/20/15 [History] Albuterol Sulfate [Ventolin Hfa] 2 puff IH Q4H PRN 10/17/15 [History] Oxygen 2 l NS AD 10/17/15 [History] Aspirin 81 mg PO DAILY 03/10/16 [History] Cholecalciferol (D-3) [Vitamin D] 1,000 unit PO DAILY 03/10/16 [History] Potassium Chloride [K-Tab ER] 20 meq PO DAILY #30 tablet.er 03/17/16 [Rx] Omeprazole [PriLOSEC] 20 mg PO DAILY 05/20/16 [History] Budesonide/Formoterol 160/4.5 [Symbicort 160/4.5] 2 puff IH BIDR 11/21/16 [History] Paroxetine [Paxil] 20 mg PO DAILY 04/05/18 [History] Immun Glob G(IgG)/Pro/Iga 0-50 [Hizentra 10 Gram/50 ml Vial] 15 gm SQ WE 04/06/18 [History] Furosemide [Lasix] 40 mg PO DAILY #30 tablet 04/07/18 [Rx] Loratadine [Claritin] 10 mg PO DAILY 06/23/18 [History] Umeclidinium [place] [Incruse Ellipta] 1 puff IH DAILY 06/23/18 [History] Albuterol Neb [Proventil Neb] 2.5 mg IH [id number] inhsol 06/28/18 [Rx] Benzonatate [Tessalon] 200 mg PO TID PRN capsule 06/28/18 [Rx] GuaiFENesin ER [Mucinex] 1,200 mg PO BID tbbp.12hr 06/28/18 [Rx] Insulin LISPRO [HumaLOG] 0 units SQ HS vial 06/28/18 [Rx] Insulin LISPRO [HumaLOG] 0 units SQ TIDAC vial 06/28/18 [Rx] Nystatin POWDER [Nystop] 1 appl TP BID bottle 06/28/18 [Rx] predniSONE [Prednisone] 10 mg PO TAPER 28 Days #70 tab.ds.pk 06/28/18 [Rx] Allergies/Adverse Reactions: Allergy/AdvReac Type Severity Reaction Status Date / Time No Known Allergies Allergy Verified 06/23/18 14:54 Date of admission: 06/23/18 10:19 Primary care physician: Dm Mcclelland MD Consults: 06/23/18 03:18 Consult to Nurse Navigator [CONS] Routine Comment: 06/23/18 21:25 Consult to Respiratory Therapy [CONS] Stat Reason for Consult: add flutter valve to breathing treatments. Call Completed: Yes 06/24/18 07:20 Consult to Occupational Therapy [CONS] Routine Comment: Evaluate, develop and implement POC Reason for Consult: weakness Does patient have active BEDREST order?: No Is patient medically & hemodynamically stable?: Yes Patient assessed for mobility or mobilized this visit?: Yes Consult to Physical Therapy [CONS] Routine Comment: Evaluate, develop and implement POC Reason for Consult: weakness Does patient have active BEDREST order?: No Is patient medically & hemodynamically stable?: Yes Patient assessed for mobility or mobilized this visit?: Yes 06/24/18 14:22 Consult to Pulmonology [CONS] Routine Consulting Provider: [facility] [place] Reason for Consult: COPD exacerbation. Hx of CVID on IgG. Spoke with Dr. Loera (her primary syruper) Call Completed: Yes - Constitutional Vitals: Temp Pulse Resp BP Pulse Ox 98.0 F 58 18 145/69 97 06/28/18 07:15 06/28/18 07:15 06/28/18 07:15 06/28/18 07:15 06/28/18 07:15 General appearance: Present: A&O X 3, morbidly obese, pleasant, no acute distress Exam: General: alert, awake, oriented, pleasant. Appears comfortable up in chair. Not feverish. H: normocephalic, atraumatic EENT: Mucus membranes moist. No lesion. CV: regular rate and rhythm, no murmurs. Not tachycardic at this time. Resp: Good air movement. Persistent Mild-moderate end expiratory wheeze Abdomen: soft, no tenderness, normal bowel sounds Extremities: pedal edema, warm to touch No rash. Neuro: moves all extremities Pulses palpable. - Patient Status Disposition: Transfer SNF Condition: Fair Functional capacity at discharge: independent ambulation Overall status at discharge: patient is back to baseline - Discharge Instructions Instructions: Chronic Obstructive Pulmonary Disease (DC) Follow Up With: Alex Loera MD [Partnered Physician] - 07/01/18 1:00 pm Amber Wright [employer] [Advanced Practice Nurse] - (Patient is going to [facility] no PCP appointment is needed) - Diet and Activity Activity: increase activity as tolerated Diet: diabetic diet (ADA in setting of steroid use) <Geneva Lea - Last Filed: 06/28/18 17:29> Orders not resulted at time of discharge: Pending orders 06/22/18 22:32 Culture,Blood [BC] Stat Date of Encounter: 06/28/18 - Discharge Diagnosis (1) Asthma with acute exacerbation in adult Status: Acute Qualifiers: Asthma severity: severe Asthma persistence: persistent Qualified Code(s): J45.51 - Severe persistent asthma with (acute) exacerbation (2) NACHO (obstructive sleep apnea) Status: Chronic (3) Acute on chronic respiratory failure Status: Resolved Qualifiers: Respiratory failure complication: hypoxia Qualified Code(s): J96.21 - Acute and chronic respiratory failure with hypoxia (4) HTN (hypertension) Status: Chronic Qualifiers: Hypertension type: essential hypertension Qualified Code(s): I10 - Essential (primary) hypertension (5) Deficient, immunity, common variable Status: Chronic (6) Hyperglycemia Status: Acute Hospital course: Ms. Ga is a 78 year old female Discharge discussed with: patient - Time Spent with Patient Total time spent providing and/or coordinating discharge services: Less than 30 minutes (25 min) Date of admission: 06/23/18 10:19 Primary care physician: Dm Mcclelland MD Consults: 06/23/18 03:18 Consult to Nurse Navigator [CONS] Routine Comment: 06/23/18 21:25 Consult to Respiratory Therapy [CONS] Stat Reason for Consult: add flutter valve to breathing treatments. Call Completed: Yes 06/24/18 07:20 Consult to Occupational Therapy [CONS] Routine Comment: Evaluate, develop and implement POC Reason for Consult: weakness Does patient have active BEDREST order?: No Is patient medically & hemodynamically stable?: Yes Patient assessed for mobility or mobilized this visit?: Yes Consult to Physical Therapy [CONS] Routine Comment: Evaluate, develop and implement POC Reason for Consult: weakness Does patient have active BEDREST order?: No Is patient medically & hemodynamically stable?: Yes Patient assessed for mobility or mobilized this visit?: Yes 06/24/18 14:22 Consult to Pulmonology [CONS] Routine Consulting Provider: Pulm [facility] [place] Reason for Consult: COPD exacerbation. Hx of CVID on IgG. Spoke with Dr. Loera (her primary syruper) Call Completed: Yes - Constitutional Vitals: Temp Pulse Resp BP Pulse Ox 98.4 F 64 18 151/67 97 06/28/18 11:24 06/28/18 12:26 06/28/18 11:24 06/28/18 11:24 06/28/18 11:24 - Attending Attestation I examined this patient and my medical decision-making was reviewed with the Res ident Physician Dr Melchor. I agree with the documented findings, disposition and treatment plan as described except to the extent set forth below. Ms Ga was admitted for acute exac asthma and hypoxia. She is slowly improved toward baseline and is stable on her home O2 at this time. She has close pulm follow up scheduled for later this week and is discharging to snf. awake, comofrtable appearing in bed. notes she is progressing slowly bt overall improving. no chest pain or tightness currently. + dry cough, + wheezing. comfortable on home O2 3L nc. awaiting insurance approval for sn then dc to there. Discussed dc plan and answered all questions. gen- alert, awake,appears stated age eyes- pupils equal round cv- reg rate and rhythm, normal s1,s2, no murmurs appreciated, no le edema lungs- + exp wheezing norhonchi or crackles, good air movement throughout, normal resp effort on o2 nc abd- soft, non tender, non distended, + bs neuro- AAOx3 1. Acute on chronic hypoxic resp failure, resolved - back to her baseline level of oxygen supplementation. 2. Acute asthma exacerbation - on PO steroids. Completed course of Levaquin. Pulm rec Prednisone 40mg daily with slow taper. pulm fu scheduled for 07/01/18. cont nebs, mucinex, inhalers 3. NACOH - continue home CPAP 4. Hyperglycemia - persists on steroids. cont SSI on dc to snf, diabetic diet, A1C 5.9 SSI scale as below, as does not cross over to dc meds: TID AC Medium scale 141-180 4units/sq 181-220 6 units/sq 221-260 8units/sq 261-300 10units/sq 301-350 12units/sq 351-400 14units/sq greater than 400 16units/sq and call physician HS Medium Scale 201-220 3units/sq 221-260 4units/sq 261-300 5units/sq 301-350 6units/sq 351-400 7units/sq greater than 400 8units/sq and call physician 5. HTN - cont home lisinopril on dc, outpt fu 6. CVID - continue home med. Sepsis ruled out (noted in admit H&P) VS changes 2/2 copd exacerbation Further diagnoses and plan as documented by resident dc to snf
[2018-06-28] MEDS: Insulin LISPRO 300 UNITS/3 ML VIAL SQ SCH ×2 (08:38→11:55)
[2018-06-28] MEDS: Furosemide 40 MG TABLET PO SCH (08:46)
[2018-06-28] MEDS: Loratadine 10 MG TABLET PO SCH (08:46)
[2018-06-28] MEDS: Cholecalciferol (D-3) 1,000 UNIT TABLET PO SCH (08:46)
[2018-06-28] MEDS: rOPINIRole 1 MG TABLET PO SCH (08:46)
[2018-06-28] MEDS: amLODIPine 5 MG TABLET PO SCH (08:46)
[2018-06-28] MEDS: Aspirin 81 MG TAB.CHEW PO SCH (08:46)
[2018-06-28] MEDS: predniSONE 20 MG TABLET PO SCH (08:46)
[2018-06-28] MEDS: Nystatin POWDER 30 GM BOTTLE TP SCH (09:21)
--- NOTE | 2018-06-28 10:44 | Physician Discharge Referral ---
<Javier Melchor - Last Filed: 06/28/18 10:48> - Diagnosis (1) Asthma with acute exacerbation in adult Status: Acute (2) Acute on chronic respiratory failure with hypoxia and hypercapnia Status: Acute (3) Deficient, immunity, common variable Status: Chronic (4) HTN (hypertension) Status: Chronic (5) Hyperglycemia Status: Acute (6) NACHO (obstructive sleep apnea) Status: Chronic - Transfer Medications Prescriptions: predniSONE [Prednisone] 10 mg PO TAPER 28 Days #70 tab.ds.pk Home Medications: BuPROPion [Wellbutrin] 100 mg PO BID 09/20/15 [History] Lisinopril [Zestril] 10 mg PO DAILY 09/20/15 [History] Ropinirole HCl [Requip] 2 mg PO TID 09/20/15 [History] Simvastatin [Zocor] 20 mg PO HS 09/20/15 [History] Albuterol Sulfate [Ventolin Hfa] 2 puff IH Q4H PRN 10/17/15 [History] Oxygen 2 l NS AD 10/17/15 [History] Aspirin 81 mg PO DAILY 03/10/16 [History] Cholecalciferol (D-3) [Vitamin D] 1,000 unit PO DAILY 03/10/16 [History] Potassium Chloride [K-Tab ER] 20 meq PO DAILY #30 tablet.er 03/17/16 [Rx] Omeprazole [PriLOSEC] 20 mg PO DAILY 05/20/16 [History] Budesonide/Formoterol 160/4.5 [Symbicort 160/4.5] 2 puff IH BIDR 11/21/16 [History] Paroxetine [Paxil] 20 mg PO DAILY 04/05/18 [History] Immun Glob G(IgG)/Pro/Iga 0-50 [Hizentra 10 Gram/50 ml Vial] 15 gm SQ WE 04/06/18 [History] Furosemide [Lasix] 40 mg PO DAILY #30 tablet 04/07/18 [Rx] Loratadine [Claritin] 10 mg PO DAILY 06/23/18 [History] Umeclidinium [place] [Incruse Ellipta] 1 puff IH DAILY 06/23/18 [History] Albuterol Neb [Proventil Neb] 2.5 mg IH [id number] inhsol 06/28/18 [Rx] Benzonatate [Tessalon] 200 mg PO TID PRN capsule 06/28/18 [Rx] GuaiFENesin ER [Mucinex] 1,200 mg PO BID tbbp.12hr 06/28/18 [Rx] Insulin LISPRO [HumaLOG] 0 units SQ HS vial 06/28/18 [Rx] Insulin LISPRO [HumaLOG] 0 units SQ TIDAC vial 06/28/18 [Rx] Nystatin POWDER [Nystop] 1 appl TP BID bottle 06/28/18 [Rx] predniSONE [Prednisone] 10 mg PO TAPER 28 Days #70 tab.ds.pk 06/28/18 [Rx] Allergies/Adverse Reactions: Allergy/AdvReac Type Severity Reaction Status Date / Time No Known Allergies Allergy Verified 06/23/18 14:54 - Respiratory Orders Oxygen / L per min (2L; continue home meds for asthma, continue steroid taper; completed Levaquin inpatient) Smoking Cessation: Smoking cessation has been advised. For more information, call the [employer] Quit Line at 0-618-XENI-NOW. - Advance Directives Code Status: Full Code - Mobility Orders Ambulate - Rehabiliation Orders Rehab Potential: Fair Rehab Orders: Evaluation for Physical Therapy, Evaluation for Occupational Therapy - Diet Orders No Concentrated Sweets CERTIFICATION: Discharging to SNF; will be on prolonged steroid taper per Pulm: 40mg po daily x 1 week, decreased by 10mg per week thereafter, to see pulm outpatient within the week, has appt 07/01. Recommended seeing PCP Dr. Mcclelland for hosp f/u as well. Completed 5 days of Levaquin Continuing home asthma medications I certify that the transfer of the above named patient to an Extended Care Facility is necessary for the continuing treatment of the diagnosis listed. The above information is true and accurate reflection of patient's current condition. Confidential - Redisclosure prohibited without a patient's written consent. <Geneva Lea - Last Filed: 06/28/18 13:17> ExtendedCare Referral Info Provider in Charge after Transfer: PCP Institutional Level of Care: Skilled - Diagnosis (1) Asthma with acute exacerbation in adult Priority: Primary Status: Acute (2) NACHO (obstructive sleep apnea) Priority: Secondary Status: Chronic (3) Acute on chronic respiratory failure Priority: Primary Status: Resolved (4) HTN (hypertension) Priority: Secondary Status: Chronic (5) Deficient, immunity, common variable Priority: Secondary Status: Chronic (6) Hyperglycemia Priority: Secondary Status: Acute - Respiratory Orders Smoking Cessation: Smoking cessation has been advised. For more information, call the [place] [employer] Quit Line at 3-466-MJKQ-NOW. - Treatments List/Other: Medium Correctional Scale Insulin for Hyperglycemia on Steroids SSI scale as below, as does not cross over to dc meds: TID AC Medium Sliding Scale Insulin 141-180 4units/sq 181-220 6 units/sq 221-260 8units/sq 261-300 10units/sq 301-350 12units/sq 351-400 14units/sq greater than 400 16units/sq and call physician HS Medium Sliding Scale Insulin 201-220 3units/sq 221-260 4units/sq 261-300 5units/sq 301-350 6units/sq 351-400 7units/sq greater than 400 8units/sq and call physician - Diet Orders No Added Salt (NARINDER), No Concentrated Sweets CERTIFICATION: I certify that the transfer of the above named patient to an Extended Care Facility is necessary for the continuing treatment of the diagnosis listed. The above information is true and accurate reflection of patient's current condition. Confidential - Redisclosure prohibited without a patient's written consent.
[2018-06-28 11:30] VITALS: BP 151/67
== END 2018-06-28 13:06 | DRG 202 ==
LOC: 2NNU 22:15 → EMEROOARM 22:15 → 2NNU 06-23 01:03 → SUATTDRO 06-23 10:19
PROVIDERS: ADMIT Pediatrics; ATTEND Internal Medicine

== ENCOUNTER 2019-07-14 23:24 | Inpatient (IN) ==
[2019-07-15] MEDS ORDERED: Ipratropium/Albuterol Neb 3 ML ONE (00:22)
[2019-07-15] MEDS: Ipratropium/Albuterol Neb 3 ML IH SCH ×4 (00:30→22:43)
[2019-07-15 01:24] LABS: Basophils % 0.3 %; Eosinophils % 0.3 %; Hematocrit 38.3 % (35.3-44.9); Hemoglobin 12.9 g/dL (11.5-15.4); Immature Granulocytes % 0.4 % (0-4); Lymphocytes # 0.5 K/mcL (0.6-4.6); Lymphocytes % 6.4 %; Mean Corpuscular HGB Conc 33.7 g/dL (31.6-35.5); Mean Corpuscular Hemoglobin 32.7 pg (28.0-33.3); Mean Corpuscular Volume 97.2 fL (83.0-100.0); Mean Platelet Volume 11.1 fL (9.4-12.4); Monocytes # 0.2 K/mcL (0.0-1.3); Monocytes % 1.9 %; Neutrophils # 7.2 K/mcL (1.6-8.9); Platelet Count 143 K/mcL (140-400); Red Blood Count 3.94 M/mcL (3.82-4.97); Red Cell Distribution Width 13.5 % (11.5-14.5); Segmented Neutrophils % 90.7 %; White Blood Count 7.9 K/mcL (4.3-11.1)
[2019-07-15 01:36] LABS: BUN/Creatinine Ratio 17 (6-26); Blood Urea Nitrogen 26 mg/dL (8-23); Calcium 9.1 mg/dL (8.6-10.3); Carbon Dioxide 29 mEq/L (23-29); Chloride 103 mEq/L (98-107); Glucose 135 mg/dL (70-105); Osmolality,Calculated 301 (280-300); Potassium 3.9 mEq/L (3.5-5.1); Sodium 142 mEq/L (136-145); eGFR For African Americans 41 (> 60); eGFR For Non-African Americans 34 (> 60)
[2019-07-15 01:37] LABS: Troponin I < 0.03 ng/mL (< 0.04)
[2019-07-15] MEDS ORDERED: Morphine Sulfate Immed Rel 30 MG TABLET PO STA (04:41)
[2019-07-15] MEDS ORDERED: Ipratropium/Albuterol Neb 3 ML IH PRN (07:55)
[2019-07-15 08:34] LABS: ABG Base Excess 3 mEq/L (-2 to 3); ABG HCO3 28 mEq/L (21-27); ABG Oxygen Saturation 99 % (95-98); ABG PCO2 43 mmHg (35-45); ABG PH 7.42 pH Units (7.32-7.45); ABG PO2 113 mmHg (85-104); ABG TCO2 29 mEq/L (20-26)
[2019-07-15] MEDS: Aspirin 81 MG TAB.CHEW PO SCH (10:19)
[2019-07-15] MEDS: MethylPREDNISolone 40 MG/ML VIAL IVP SCH ×2 (10:19→17:53)
[2019-07-15] MEDS: Budesonide/Formoterol 160/4.5 1 PUFF INH IH SCH ×2 (11:55→22:43)
[2019-07-15 19:54] LABS: Adenovirus Not Detected (Not Detect); Bordetella Pertussis Not Detected (Not Detect); Chlamydophila pneumoniae Not Detected (Not Detect); Coronavirus 229E Not Detected (Not Detect); Coronavirus HKU1 Not Detected (Not Detect); Coronavirus NL63 Not Detected (Not Detect); Coronavirus OC43 Not Detected (Not Detect); Human Metapneumovirus Not Detected (Not Detect); Human Rhinovirus/Enterovirus Not Detected (Not Detect); Influenza A Subtype 2009 H1 Not Detected (Not Detect); Influenza A Untypeable Not Detected (Not Detect); Influenza B Not Detected (Not Detect); Mycoplasma pneumoniae Not Detected (Not Detect); Parainfluenza Virus 1 Not Detected (Not Detect); Parainfluenza Virus 2 Not Detected (Not Detect); Parainfluenza Virus 3 Not Detected (Not Detect); Parainfluenza Virus 4 Not Detected (Not Detect); Respiratory Syncytial Virus Not Detected (Not Detect)
[2019-07-16] MEDS: Ipratropium/Albuterol Neb 3 ML IH SCH ×4 (04:26→22:27)
[2019-07-16 04:40] LABS: Basophils % 0.1 %; Hematocrit 37.7 % (35.3-44.9); Hemoglobin 12.1 g/dL (11.5-15.4); Immature Granulocytes % 0.4 % (0-4); Lymphocytes # 0.4 K/mcL (0.6-4.6); Lymphocytes % 4.2 %; Mean Corpuscular HGB Conc 32.1 g/dL (31.6-35.5); Mean Corpuscular Hemoglobin 32.4 pg (28.0-33.3); Mean Corpuscular Volume 101.1 fL (83.0-100.0); Mean Platelet Volume 11.6 fL (9.4-12.4); Monocytes # 0.2 K/mcL (0.0-1.3); Monocytes % 2.1 %; Neutrophils # 8.9 K/mcL (1.6-8.9); Platelet Count 149 K/mcL (140-400); Red Blood Count 3.73 M/mcL (3.82-4.97); Red Cell Distribution Width 13.5 % (11.5-14.5); Segmented Neutrophils % 93.2 %; White Blood Count 9.6 K/mcL (4.3-11.1)
[2019-07-16 05:01] LABS: Calcium 9.4 mg/dL (8.6-10.3); Potassium 4.4 mEq/L (3.5-5.1)
[2019-07-16] MEDS: MethylPREDNISolone 40 MG/ML VIAL IVP SCH ×2 (05:20→15:47)
[2019-07-16] MEDS: Aspirin 81 MG TAB.CHEW PO SCH (09:31)
[2019-07-16] MEDS ORDERED: 0.9 % Sodium Chloride 1,000 ML IVC SCH (10:45)
[2019-07-16] MEDS: Budesonide/Formoterol 160/4.5 1 PUFF INH IH SCH ×2 (10:47→22:27)
[2019-07-16] MEDS: Albuterol 2.5 MG/3 ML NEBULIZER IH SCH ×3 (10:56→20:28)
[2019-07-16] MEDS ORDERED: D5% in Water 1,000 ML IVC PRN (12:57)
[2019-07-16] MEDS ORDERED: Dextrose Gel 15 GM/37.5 ML TUBE PO PRN ×2 (12:57)
[2019-07-16] MEDS ORDERED: *HR* Dextrose 50 % in Water (Syg) 50 ML SYRINGE IVP PRN (12:57)
[2019-07-16] MEDS: rOPINIRole 1 MG TABLET PO SCH ×2 (15:44→21:06)
[2019-07-16] MEDS: Insulin LISPRO 300 UNITS/3 ML VIAL SQ SCH (18:16)
[2019-07-16] MEDS: *HR* Heparin 5,000 UNIT/ML VIAL SQ SCH (18:16)
[2019-07-16] MEDS: tiZANidine 4 MG TABLET PO SCH (21:07)
[2019-07-17] MEDS: Albuterol 2.5 MG/3 ML NEBULIZER IH SCH ×6 (00:18→19:59)
[2019-07-17] MEDS: Insulin LISPRO 300 UNITS/3 ML VIAL SQ SCH ×5 (01:25→21:34)
[2019-07-17] MEDS: MethylPREDNISolone 40 MG/ML VIAL IVP SCH ×2 (01:25→07:50)
[2019-07-17] MEDS: Ipratropium/Albuterol Neb 3 ML IH SCH ×4 (03:51→22:01)
[2019-07-17] MEDS: *HR* Heparin 5,000 UNIT/ML VIAL SQ SCH ×2 (05:12→17:11)
[2019-07-17 06:21] LABS: Basophils % 0.1 %; Hematocrit 35.3 % (35.3-44.9); Hemoglobin 11.5 g/dL (11.5-15.4); Immature Granulocytes % 0.6 % (0-4); Lymphocytes # 0.5 K/mcL (0.6-4.6); Lymphocytes % 4.1 %; Mean Corpuscular HGB Conc 32.6 g/dL (31.6-35.5); Mean Corpuscular Volume 101.1 fL (83.0-100.0); Mean Platelet Volume 12.1 fL (9.4-12.4); Monocytes # 0.7 K/mcL (0.0-1.3); Monocytes % 5.4 %; Neutrophils # 11.4 K/mcL (1.6-8.9); Platelet Count 147 K/mcL (140-400); Red Blood Count 3.49 M/mcL (3.82-4.97); Red Cell Distribution Width 13.6 % (11.5-14.5); Segmented Neutrophils % 89.8 %; White Blood Count 12.6 K/mcL (4.3-11.1)
[2019-07-17 06:43] LABS: Calcium 9.5 mg/dL (8.6-10.3); Potassium 4.4 mEq/L (3.5-5.1)
[2019-07-17] MEDS: Aspirin 81 MG TAB.CHEW PO SCH (07:50)
[2019-07-17] MEDS: rOPINIRole 1 MG TABLET PO SCH ×3 (07:50→21:33)
[2019-07-17] MEDS: Loratadine 10 MG TABLET PO SCH (07:50)
[2019-07-17] MEDS: tiZANidine 4 MG TABLET PO SCH ×2 (07:50→21:33)
[2019-07-17 09:04] LABS: Estimated Average Glucose 131 mg/dl
[2019-07-17] MEDS: Budesonide/Formoterol 160/4.5 1 PUFF INH IH SCH ×2 (10:26→22:01)
[2019-07-18] MEDS: Ipratropium/Albuterol Neb 3 ML IH SCH ×4 (04:33→22:39)
[2019-07-18 05:32] LABS: Bilirubin,Urine Negative (Negative); Blood,Urine Negative (Negative); Clarity,Urine Clear (Clear); Color,Urine Yellow (Yellow); Glucose,Urine (UA) Normal (Normal); Ketones,Urine Negative (Negative); Leukocyte Esterase,Urine Moderate (Negative); Nitrite,Urine Negative (Negative); Protein,Urine Negative (Neg-Trace); Specific Gravity,Urine 1.024 (1.010-1.025); Urobilinogen,Urine Normal (Normal)
[2019-07-18] MEDS: *HR* Heparin 5,000 UNIT/ML VIAL SQ SCH (06:05)
[2019-07-18 07:11] LABS: Hemoglobin 10.8 g/dL (11.5-15.4); Immature Granulocytes % 0.8 % (0-4); Lymphocytes # 0.7 K/mcL (0.6-4.6); Lymphocytes % 8.8 %; Mean Corpuscular HGB Conc 32.7 g/dL (31.6-35.5); Mean Corpuscular Hemoglobin 32.8 pg (28.0-33.3); Mean Corpuscular Volume 100.3 fL (83.0-100.0); Mean Platelet Volume 11.9 fL (9.4-12.4); Monocytes # 0.5 K/mcL (0.0-1.3); Monocytes % 6.8 %; Neutrophils # 6.7 K/mcL (1.6-8.9); Platelet Count 125 K/mcL (140-400); Red Blood Count 3.29 M/mcL (3.82-4.97); Red Cell Distribution Width 13.4 % (11.5-14.5); Segmented Neutrophils % 83.6 %
[2019-07-18 07:32] LABS: Calcium 9.4 mg/dL (8.6-10.3); Potassium 4.1 mEq/L (3.5-5.1)
[2019-07-18] MEDS: tiZANidine 4 MG TABLET PO SCH ×2 (08:26→20:45)
[2019-07-18] MEDS: rOPINIRole 1 MG TABLET PO SCH ×3 (08:26→20:45)
[2019-07-18] MEDS: predniSONE 20 MG TABLET PO SCH (08:27)
[2019-07-18] MEDS: Insulin LISPRO 300 UNITS/3 ML VIAL SQ SCH ×4 (08:27→20:45)
[2019-07-18] MEDS: Loratadine 10 MG TABLET PO SCH (08:27)
[2019-07-18] MEDS: Aspirin 81 MG TAB.CHEW PO SCH (08:27)
[2019-07-18] MEDS: Budesonide/Formoterol 160/4.5 1 PUFF INH IH SCH ×2 (11:07→22:39)
[2019-07-18] MEDS: Insulin DETEMIR 100 UNIT/ML X5UNITS SQ SCH (16:23)
[2019-07-18] MEDS: *HR* Enoxaparin 30 MG/0.3 ML SYRINGE SQ SCH (17:36)
[2019-07-19] MEDS: Ipratropium/Albuterol Neb 3 ML IH SCH ×2 (03:24→10:57)
[2019-07-19] MEDS ORDERED: Chloraseptic Spray 177 ML BOTTLE MM PRN (03:49)
[2019-07-19] MEDS: *HR* Enoxaparin 30 MG/0.3 ML SYRINGE SQ SCH (05:41)
[2019-07-19] MEDS: Insulin LISPRO 300 UNITS/3 ML VIAL SQ SCH ×2 (07:59→12:40)
[2019-07-19] MEDS ORDERED: Furosemide 40 MG TABLET PO SCH (09:00)
[2019-07-19] MEDS: rOPINIRole 1 MG TABLET PO SCH (10:04)
[2019-07-19] MEDS: predniSONE 20 MG TABLET PO SCH (10:04)
[2019-07-19] MEDS: Aspirin 81 MG TAB.CHEW PO SCH (10:05)
[2019-07-19] MEDS: tiZANidine 4 MG TABLET PO SCH (10:05)
[2019-07-19] MEDS: Insulin DETEMIR 100 UNIT/ML X5UNITS SQ SCH (10:05)
[2019-07-19] MEDS: Loratadine 10 MG TABLET PO SCH (10:05)
[2019-07-19] MEDS: Budesonide/Formoterol 160/4.5 1 PUFF INH IH SCH (10:57)
[2019-07-19 11:28] VITALS: BP 105/66
[2019-07-19 12:25] LABS: Basophils % 0.1 %; Eosinophils # 0.1 K/mcL (0.0-0.6); Eosinophils % 0.7 %; Hematocrit 33.3 % (35.3-44.9); Hemoglobin 11.1 g/dL (11.5-15.4); Immature Granulocytes % 1.4 % (0-4); Lymphocytes # 1.4 K/mcL (0.6-4.6); Lymphocytes % 16.9 %; Mean Corpuscular HGB Conc 33.3 g/dL (31.6-35.5); Mean Corpuscular Hemoglobin 32.4 pg (28.0-33.3); Mean Corpuscular Volume 97.1 fL (83.0-100.0); Mean Platelet Volume 11.6 fL (9.4-12.4); Monocytes # 0.7 K/mcL (0.0-1.3); Monocytes % 8.4 %; Neutrophils # 5.8 K/mcL (1.6-8.9); Platelet Count 125 K/mcL (140-400); Red Blood Count 3.43 M/mcL (3.82-4.97); Red Cell Distribution Width 13.4 % (11.5-14.5); Segmented Neutrophils % 72.5 %; White Blood Count 8.1 K/mcL (4.3-11.1)
[2019-07-19 12:42] LABS: Potassium 3.8 mEq/L (3.5-5.1)
== END 2019-07-19 14:37 | DRG 202 ==
LOC: 3ANU 23:24 → EMEROOARM 23:24 → SUATTDRO 07-15 05:59 → 3ANU 07-15 06:35 → SUATTDRO 07-16 14:16
PROVIDERS: ADMIT Internal Medicine; ATTEND Student in an Organized Health Care Education/Training Program

== ENCOUNTER 2020-06-30 12:14 | Inpatient (IN) ==
[2020-06-30] MEDS ORDERED: Sennosides 8.6 MG TABLET PO PRN (12:22)
[2020-06-30] MEDS ORDERED: Naloxone 0.4 MG/ML INJ IVP PRN (12:22)
[2020-06-30] MEDS ORDERED: *HR* Promethazine 25 MG/ML VIAL IM PRN (12:22)
[2020-06-30] MEDS ORDERED: MOM Conc 10 ML UD.LIQ PO PRN (12:22)
[2020-06-30] MEDS ORDERED: Ringers Solution, Lactated 1,000 ML IVC SCH (12:30)
[2020-06-30 13:05] LABS: Basophils % 0.3 %; Eosinophils # 0.1 K/mcL (0.0-0.6); Eosinophils % 1.5 %; Hematocrit 29.5 % (35.3-44.9); Hemoglobin 9.7 g/dL (11.5-15.4); Immature Granulocytes % 0.3 % (0-4); Lymphocytes # 1.4 K/mcL (0.6-4.6); Lymphocytes % 14.5 %; Mean Corpuscular HGB Conc 32.9 g/dL (31.6-35.5); Mean Corpuscular Hemoglobin 32.6 pg (28.0-33.3); Mean Platelet Volume 11.1 fL (9.4-12.4); Monocytes # 0.7 K/mcL (0.0-1.3); Monocytes % 6.9 %; Neutrophils # 7.2 K/mcL (1.6-8.9); Platelet Count 149 K/mcL (140-400); Red Blood Count 2.98 M/mcL (3.82-4.97); Red Cell Distribution Width 13.6 % (11.5-14.5); Segmented Neutrophils % 76.5 %; White Blood Count 9.4 K/mcL (4.3-11.1)
[2020-06-30 13:23] LABS: Calcium 8.7 mg/dL (8.6-10.3); Potassium 4.2 mEq/L (3.5-5.1)
[2020-06-30 14:45] LABS: Prothrombin Time 11.3 Seconds (9.4-12.1)
[2020-06-30 14:47] LABS: Activated Partial Thrombo Time 23.1 Seconds (26.0-36.0)
[2020-06-30] MEDS: Ascorbic Acid 500 MG TABLET PO SCH (18:48)
[2020-06-30] MEDS: 0.9 % Sodium Chloride 1,000 ML IVC SCH (18:49)
[2020-06-30] MEDS: *HR* OxyCODONE Immed Rel 5 MG TABLET PO PRN ×2 (19:37→23:39)
[2020-06-30] MEDS: tiZANidine 4 MG TABLET PO SCH (21:17)
[2020-06-30] MEDS: rOPINIRole 1 MG TABLET PO SCH (21:17)
[2020-07-01 02:02] LABS: Basophils % 0.3 %; Eosinophils # 0.1 K/mcL (0.0-0.6); Eosinophils % 1.3 %; Hematocrit 29.5 % (35.3-44.9); Hemoglobin 9.4 g/dL (11.5-15.4); Immature Granulocytes % 0.5 % (0-4); Lymphocytes # 1.5 K/mcL (0.6-4.6); Lymphocytes % 19.7 %; Mean Corpuscular HGB Conc 31.9 g/dL (31.6-35.5); Mean Corpuscular Hemoglobin 32.6 pg (28.0-33.3); Mean Corpuscular Volume 102.4 fL (83.0-100.0); Mean Platelet Volume 11.8 fL (9.4-12.4); Monocytes # 0.6 K/mcL (0.0-1.3); Monocytes % 7.5 %; Neutrophils # 5.4 K/mcL (1.6-8.9); Platelet Count 145 K/mcL (140-400); Red Blood Count 2.88 M/mcL (3.82-4.97); Red Cell Distribution Width 13.4 % (11.5-14.5); Segmented Neutrophils % 70.7 %; White Blood Count 7.7 K/mcL (4.3-11.1)
[2020-07-01 02:15] LABS: Calcium 8.8 mg/dL (8.6-10.3); Potassium 4.5 mEq/L (3.5-5.1)
[2020-07-01] MEDS: Aspirin Enteric Coated 81 MG Tablet PO SCH (07:15)
[2020-07-01] MEDS: predniSONE 10 MG TABLET PO SCH (07:15)
[2020-07-01] MEDS: Ascorbic Acid 500 MG TABLET PO SCH ×2 (07:15→17:32)
[2020-07-01] MEDS: rOPINIRole 1 MG TABLET PO SCH ×2 (07:15→21:18)
[2020-07-01] MEDS: Multivit/Ca/Min/Fe/FA 1 TAB TABLET PO SCH (07:15)
[2020-07-01] MEDS: tiZANidine 4 MG TABLET PO SCH ×2 (07:16→21:18)
[2020-07-01] MEDS: *HR* Enoxaparin 40 MG/0.4 ML SYRINGE SQ SCH (07:16)
[2020-07-01] MEDS: 0.9 % Sodium Chloride 1,000 ML IVC SCH (07:26)
[2020-07-01] MEDS ORDERED: 0.9 % Sodium Chloride 1,000 ML IVC SCH (12:37)
[2020-07-01] MEDS ORDERED: *HR* Labetalol 20 MG/4 ML SYRINGE IVP PRN (17:21)
[2020-07-01] MEDS: *HR* OxyCODONE Immed Rel 5 MG TABLET PO PRN (22:03)
[2020-07-01 22:48] LABS: Protein/Creatinine Ratio,Urine 0.12 mg/mg (0.00-0.20)
[2020-07-01 22:49] LABS: Bacteria,Urine Few per hpf (None-Few); Bilirubin,Urine Negative (Negative); Blood,Urine Negative (Negative); Clarity,Urine Clear (Clear); Color,Urine Colorless (Yellow); Glucose,Urine (UA) Normal (Normal); Ketones,Urine Negative (Negative); Leukocyte Esterase,Urine Moderate (Negative); Nitrite,Urine Negative (Negative); Protein,Urine Negative (Neg-Trace); RBC,Urine 0-3 per hpf (0-3); Specific Gravity,Urine 1.007 (1.010-1.025); Squamous Epithelial Cell,Urine Few per hpf (None-Few); Urobilinogen,Urine Normal (Normal)
[2020-07-02] MEDS: *HR* Enoxaparin 40 MG/0.4 ML SYRINGE SQ SCH (05:06)
[2020-07-02 06:53] LABS: Basophils # 0.1 K/mcL (0.0-0.2); Basophils % 0.7 %; Eosinophils # 0.2 K/mcL (0.0-0.6); Eosinophils % 2.6 %; Hematocrit 32.3 % (35.3-44.9); Hemoglobin 10.4 g/dL (11.5-15.4); Immature Granulocytes % 0.8 % (0-4); Lymphocytes # 1.9 K/mcL (0.6-4.6); Lymphocytes % 24.6 %; Mean Corpuscular HGB Conc 32.2 g/dL (31.6-35.5); Mean Corpuscular Hemoglobin 32.9 pg (28.0-33.3); Mean Corpuscular Volume 102.2 fL (83.0-100.0); Mean Platelet Volume 11.1 fL (9.4-12.4); Monocytes # 0.4 K/mcL (0.0-1.3); Monocytes % 5.8 %; Platelet Count 150 K/mcL (140-400); Red Blood Count 3.16 M/mcL (3.82-4.97); Red Cell Distribution Width 13.6 % (11.5-14.5); Segmented Neutrophils % 65.5 %; White Blood Count 7.6 K/mcL (4.3-11.1)
[2020-07-02] MEDS ORDERED: Acetaminophen IV 1,000 MG/100 ML BAG IVPB ONE ×2 (07:00→08:03)
[2020-07-02] MEDS ORDERED: Famotidine 20 MG/2 ML VIAL IVP ONE (07:00)
[2020-07-02 07:05] LABS: Complement C3 134 mg/dL (87-200)
[2020-07-02] MEDS ORDERED: Vancomycin 1,000 MG VIAL ONE (07:07)
[2020-07-02] MEDS ORDERED: Tobramycin Sulf (Sterile) 1.2 GM VIAL ONE (07:07)
[2020-07-02 07:12] LABS: Uric Acid 7.7 mg/dL (2.3-7.6)
[2020-07-02 07:13] LABS: Calcium 8.6 mg/dL (8.6-10.3)
[2020-07-02 07:15] LABS: Rheumatoid Factor < 10 IU/mL (Less than 14)
[2020-07-02] MEDS ORDERED: *HR* Propofol 200 MG/20 ML VIAL IVP ONE (07:23)
[2020-07-02] MEDS ORDERED: *HR* FentaNYL (PF) 100 MCG/2 ML VIAL ONE ×2 (07:23→12:43)
[2020-07-02] MEDS ORDERED: *HR* Succinylcholine 200 MG/10 ML VIAL IVP ONE (07:23)
[2020-07-02] MEDS ORDERED: Lidocaine HCL 4 ML Topical Solution (Laryng-O-Jet Kit Sterile Pak) TP ONE (07:23)
[2020-07-02] MEDS ORDERED: *HR* Rocuronium Bromide 50 MG/5 ML VIAL ONE (07:23)
[2020-07-02] MEDS ORDERED: Lidocaine -MPF 2% 2 ML VIAL ONE (07:23)
[2020-07-02] MEDS ORDERED: Dexamethasone 4 MG/ML VIAL ONE ×2 (07:23→08:16)
[2020-07-02] MEDS ORDERED: Ondansetron 4 MG/2 ML VIAL ONE (07:23)
[2020-07-02] MEDS ORDERED: Sugammadex Sodium 200 MG/2 ML VIAL IV ONE (07:24)
[2020-07-02] MEDS ORDERED: Tranexamic Acid 1,000 MG/10 ML VIAL ONE (07:24)
[2020-07-02] MEDS ORDERED: *HR* PHENYLEPHRINE 1,000 MCG/10 ML SYRINGE IVP ONE (07:30)
[2020-07-02] MEDS ORDERED: Albumin Human 5% 25.0 GM/500 ML IV.SOLN ONE (07:34)
[2020-07-02] MEDS ORDERED: *HR* Vasopressin 20 UNIT/ML VIAL ONE (07:34)
[2020-07-02 07:39] LABS: Vitamin B12 778 pg/mL (250-1100)
[2020-07-02] MEDS ORDERED: Povidone-Iodine 45 ML, Sodium Chloride IRRigation 1,000 ML IR ONE (07:45)
[2020-07-02] MEDS ORDERED: TOTAL JOINT MIXTURE (100ML) INTRAART ONE (07:45)
[2020-07-02] MEDS ORDERED: ceFAZolin 2,000 MG in 0.9 % Sodium Chloride 100 ML IVPB ONE (08:00)
[2020-07-02] MEDS ORDERED: Gentamicin 120 MG in 0.9 % Sodium Chloride 100 ML IVPB ONE (08:00)
[2020-07-02] MEDS ORDERED: Famotidine 20 MG/2 ML VIAL ONE (08:03)
[2020-07-02] MEDS ORDERED: Ropivacaine/PF 0.5% 30 ML VIAL ONE (08:03)
[2020-07-02] MEDS ORDERED: Lidocaine/EPI 1:100k 1% 20 ML VIAL ONE (08:03)
[2020-07-02] MEDS ORDERED: EPINEPHrine 1 MG/ML VIAL ONE (08:07)
[2020-07-02] MEDS ORDERED: EPHEDrine 50 MG/ML VIAL ONE (09:16)
[2020-07-02] MEDS ORDERED: Ketorolac 30 MG/ML VIAL ONE (10:07)
[2020-07-02 10:21] LABS: VBG Base Excess -5 mEq/L; VBG Chloride 107 mEq/L (98-107); VBG Glucose 91 mg/dl (65-95); VBG HCO3 20 mEq/L (21-27); VBG Oxygen Saturation 55 %; VBG PCO2 35 mmHg (41-51); VBG PH 7.35 pH Units (7.32-7.42); VBG PO2 30 mmHg (25-50); VBG Total CO2 21 mEq/L
[2020-07-02] MEDS ORDERED: Ringers Solution, Lactated 1,000 ML IVC SCH (13:30)
[2020-07-02 14:06] LABS: Hematocrit 25.7 % (35.3-44.9)
[2020-07-02 14:07] LABS: Hemoglobin 8.4 g/dL (11.5-15.4)
[2020-07-02 16:02] LABS: Vitamin D 25 Hydroxy 26 ng/mL (30-80)
[2020-07-02] MEDS: Ascorbic Acid 500 MG TABLET PO SCH ×2 (17:19→17:32)
[2020-07-02] MEDS: Aspirin Enteric Coated 81 MG Tablet PO SCH (17:19)
[2020-07-02] MEDS: predniSONE 10 MG TABLET PO SCH (17:20)
[2020-07-02] MEDS: Multivit/Ca/Min/Fe/FA 1 TAB TABLET PO SCH (17:20)
[2020-07-02] MEDS: tiZANidine 4 MG TABLET PO SCH ×2 (17:20→20:11)
[2020-07-02] MEDS: rOPINIRole 1 MG TABLET PO SCH ×2 (17:20→20:11)
[2020-07-02] MEDS: CeFAZolin 2 GM/120 ML BAG IVPB SCH (17:31)
[2020-07-02] MEDS: *HR* OxyCODONE Immed Rel 5 MG TABLET PO PRN ×2 (17:37→22:24)
[2020-07-03] MEDS: CeFAZolin 2 GM/120 ML BAG IVPB SCH ×3 (00:35→22:46)
[2020-07-03] MEDS: *HR* Enoxaparin 40 MG/0.4 ML SYRINGE SQ SCH (06:46)
[2020-07-03] MEDS: *HR* OxyCODONE Immed Rel 5 MG TABLET PO PRN ×2 (06:49→10:56)
[2020-07-03 07:30] LABS: Basophils % 0.1 %; Hematocrit 21.9 % (35.3-44.9); Hemoglobin 7.1 g/dL (11.5-15.4); Immature Granulocytes % 0.7 % (0-4); Lymphocytes # 0.6 K/mcL (0.6-4.6); Lymphocytes % 4.4 %; Mean Corpuscular HGB Conc 32.4 g/dL (31.6-35.5); Mean Corpuscular Hemoglobin 32.7 pg (28.0-33.3); Mean Corpuscular Volume 100.9 fL (83.0-100.0); Mean Platelet Volume 11.8 fL (9.4-12.4); Monocytes # 0.8 K/mcL (0.0-1.3); Neutrophils # 12.1 K/mcL (1.6-8.9); Platelet Count 146 K/mcL (140-400); Red Blood Count 2.17 M/mcL (3.82-4.97); Red Cell Distribution Width 13.8 % (11.5-14.5); Segmented Neutrophils % 88.8 %; White Blood Count 13.6 K/mcL (4.3-11.1)
[2020-07-03 07:58] LABS: Calcium 8.1 mg/dL (8.6-10.3)
[2020-07-03] MEDS: Ascorbic Acid 500 MG TABLET PO SCH ×2 (10:56→16:31)
[2020-07-03] MEDS: tiZANidine 4 MG TABLET PO SCH ×2 (10:56→20:15)
[2020-07-03] MEDS: Aspirin Enteric Coated 81 MG Tablet PO SCH (10:56)
[2020-07-03] MEDS: rOPINIRole 1 MG TABLET PO SCH ×2 (10:56→20:15)
[2020-07-03] MEDS: predniSONE 10 MG TABLET PO SCH (10:56)
[2020-07-03] MEDS: Multivit/Ca/Min/Fe/FA 1 TAB TABLET PO SCH (10:56)
[2020-07-03 16:52] LABS: VBG Base Excess -2 mEq/L; VBG Chloride 107 mEq/L (98-107); VBG Glucose 123 mg/dl (65-95); VBG HCO3 23 mEq/L (21-27); VBG Ionized Calcium 1.12 mmol/L (1.15-1.35); VBG Oxygen Saturation 69 %; VBG PCO2 39 mmHg (41-51); VBG PH 7.39 pH Units (7.32-7.42); VBG PO2 36 mmHg (25-50); VBG Total CO2 25 mEq/L
[2020-07-03] MEDS ORDERED: 0.9 % Sodium Chloride 250 ML ONE (18:56)
[2020-07-04 05:08] LABS: Lambda Qnt Free Light Chains 10.57 mg/L (5.71-26.30)
[2020-07-04 05:16] LABS: Basophils % 0.1 %; Eosinophils % 0.4 %; Hematocrit 22.6 % (35.3-44.9); Hemoglobin 7.5 g/dL (11.5-15.4); Immature Granulocytes % 1.1 % (0-4); Lymphocytes % 10.3 %; Mean Corpuscular HGB Conc 33.2 g/dL (31.6-35.5); Mean Corpuscular Hemoglobin 32.6 pg (28.0-33.3); Mean Corpuscular Volume 98.3 fL (83.0-100.0); Mean Platelet Volume 11.9 fL (9.4-12.4); Monocytes # 0.6 K/mcL (0.0-1.3); Monocytes % 6.6 %; Neutrophils # 7.5 K/mcL (1.6-8.9); Nucleated Red Blood Cells 0.2 /100 WBC (0); Platelet Count 102 K/mcL (140-400); Red Cell Distribution Width 16.3 % (11.5-14.5); Segmented Neutrophils % 81.5 %; White Blood Count 9.3 K/mcL (4.3-11.1)
[2020-07-04 05:22] LABS: Calcium 8.2 mg/dL (8.6-10.3); Potassium 4.5 mEq/L (3.5-5.1)
[2020-07-04] MEDS: Multivit/Ca/Min/Fe/FA 1 TAB TABLET PO SCH (08:17)
[2020-07-04] MEDS: Ascorbic Acid 500 MG TABLET PO SCH ×2 (08:17→17:00)
[2020-07-04] MEDS: Aspirin Enteric Coated 81 MG Tablet PO SCH (08:17)
[2020-07-04] MEDS: predniSONE 10 MG TABLET PO SCH (08:17)
[2020-07-04] MEDS: rOPINIRole 1 MG TABLET PO SCH ×2 (08:17→20:19)
[2020-07-04] MEDS: tiZANidine 4 MG TABLET PO SCH ×2 (08:17→20:19)
[2020-07-04] MEDS: *HR* Enoxaparin 40 MG/0.4 ML SYRINGE SQ SCH (08:18)
[2020-07-04 09:19] LABS: Kappa Qnt Free Light Chains 13.22 mg/L (3.30-19.40)
[2020-07-04] MEDS: CeFAZolin 2 GM/120 ML BAG IVPB SCH ×2 (11:00→19:28)
[2020-07-04] MEDS ORDERED: Furosemide 40 MG TABLET PO SCH (11:00)
[2020-07-04] MEDS ORDERED: Furosemide 20 MG/2 ML VIAL IVP ONE (11:11)
[2020-07-04] MEDS: Budesonide/Formoterol 160/4.5 1 PUFF INH IH SCH ×2 (11:31→19:59)
[2020-07-04] MEDS: Ipratropium/Albuterol Neb 3 ML IH SCH ×4 (11:31→23:22)
[2020-07-04] MEDS ORDERED: 0.9 % Sodium Chloride 250 ML ONE (12:08)
[2020-07-04] MEDS: *HR* OxyCODONE Immed Rel 5 MG TABLET PO PRN (13:38)
[2020-07-04] MEDS: MethylPREDNISolone 40 MG/ML VIAL IVP SCH (17:00)
[2020-07-04 21:07] LABS: Adenovirus Not Detected (Not Detect); Coronavirus 229E Not Detected (Not Detect); Coronavirus HKU1 Not Detected (Not Detect); Coronavirus NL63 Not Detected (Not Detect); Coronavirus OC43 Not Detected (Not Detect)
[2020-07-04 21:08] LABS: Bordetella Pertussis Not Detected (Not Detect); Chlamydophila pneumoniae Not Detected (Not Detect); Human Metapneumovirus Not Detected (Not Detect); Human Rhinovirus/Enterovirus Not Detected (Not Detect); Influenza A Subtype 2009 H1 Not Detected (Not Detect); Influenza B Not Detected (Not Detect); Mycoplasma pneumoniae Not Detected (Not Detect); Parainfluenza Virus 1 Not Detected (Not Detect); Parainfluenza Virus 2 Not Detected (Not Detect); Parainfluenza Virus 3 Not Detected (Not Detect); Parainfluenza Virus 4 Not Detected (Not Detect); Respiratory Syncytial Virus Not Detected (Not Detect); SARS-CoV-2 Not Detected (Not Detect)
[2020-07-05] MEDS: MethylPREDNISolone 40 MG/ML VIAL IVP SCH ×4 (01:05→23:42)
[2020-07-05] MEDS: CeFAZolin 2 GM/120 ML BAG IVPB SCH ×3 (03:42→18:54)
[2020-07-05 03:52] LABS: Hematocrit 26.1 % (35.3-44.9); Hemoglobin 8.6 g/dL (11.5-15.4); Immature Granulocytes % 1.3 % (0-4); Lymphocytes # 0.4 K/mcL (0.6-4.6); Lymphocytes % 3.8 %; Mean Corpuscular Hemoglobin 32.3 pg (28.0-33.3); Mean Corpuscular Volume 98.1 fL (83.0-100.0); Mean Platelet Volume 11.3 fL (9.4-12.4); Monocytes # 0.3 K/mcL (0.0-1.3); Monocytes % 3.3 %; Neutrophils # 8.6 K/mcL (1.6-8.9); Nucleated Red Blood Cells 0.2 /100 WBC (0); Platelet Count 120 K/mcL (140-400); Red Blood Count 2.66 M/mcL (3.82-4.97); Red Cell Distribution Width 16.5 % (11.5-14.5); Segmented Neutrophils % 91.6 %; White Blood Count 9.4 K/mcL (4.3-11.1)
[2020-07-05] MEDS: Ipratropium/Albuterol Neb 3 ML IH SCH ×6 (04:06→23:26)
[2020-07-05 04:19] LABS: Calcium 8.4 mg/dL (8.6-10.3); Potassium 4.8 mEq/L (3.5-5.1)
[2020-07-05] MEDS: Budesonide/Formoterol 160/4.5 1 PUFF INH IH SCH ×2 (07:38→19:53)
[2020-07-05] MEDS: *HR* OxyCODONE Immed Rel 5 MG TABLET PO PRN ×2 (11:13→18:54)
[2020-07-05] MEDS: Ascorbic Acid 500 MG TABLET PO SCH ×2 (11:14→16:44)
[2020-07-05] MEDS: Aspirin Enteric Coated 81 MG Tablet PO SCH (11:14)
[2020-07-05] MEDS: *HR* Enoxaparin 40 MG/0.4 ML SYRINGE SQ SCH (11:14)
[2020-07-05] MEDS: tiZANidine 4 MG TABLET PO SCH ×2 (11:14→20:30)
[2020-07-05] MEDS: Multivit/Ca/Min/Fe/FA 1 TAB TABLET PO SCH (11:14)
[2020-07-05] MEDS: rOPINIRole 1 MG TABLET PO SCH ×2 (11:19→20:30)
[2020-07-05] MEDS: Furosemide 20 MG/2 ML VIAL IVP SCH (16:42)
[2020-07-05] MEDS: Insulin LISPRO 300 UNITS/3 ML VIAL SUBQ SCH (16:51)
[2020-07-05 20:36] LABS: Alpha 2 Globulin (PEP) 0.89 g/dL (0.48-1.05); Beta Globulin (PEP) 0.66 g/dL (0.48-1.10)
[2020-07-05 21:08] LABS: IFE Reflexed NOT DONE
[2020-07-06] MEDS: Ipratropium/Albuterol Neb 3 ML IH SCH ×4 (03:42→16:14)
[2020-07-06] MEDS: CeFAZolin 2 GM/120 ML BAG IVPB SCH ×2 (04:04→11:50)
[2020-07-06 04:22] LABS: Basophils % 0.1 %; Hematocrit 26.2 % (35.3-44.9); Hemoglobin 8.5 g/dL (11.5-15.4); Immature Granulocytes % 1.2 % (0-4); Lymphocytes # 0.3 K/mcL (0.6-4.6); Lymphocytes % 2.9 %; Mean Corpuscular HGB Conc 32.4 g/dL (31.6-35.5); Mean Corpuscular Hemoglobin 32.3 pg (28.0-33.3); Mean Corpuscular Volume 99.6 fL (83.0-100.0); Mean Platelet Volume 11.5 fL (9.4-12.4); Monocytes # 0.5 K/mcL (0.0-1.3); Monocytes % 4.5 %; Neutrophils # 9.2 K/mcL (1.6-8.9); Nucleated Red Blood Cells 0.3 /100 WBC (0); Platelet Count 126 K/mcL (140-400); Red Blood Count 2.63 M/mcL (3.82-4.97); Red Cell Distribution Width 16.2 % (11.5-14.5); Segmented Neutrophils % 91.3 %; White Blood Count 10.1 K/mcL (4.3-11.1)
[2020-07-06 04:42] LABS: Calcium 8.7 mg/dL (8.6-10.3); Potassium 4.9 mEq/L (3.5-5.1)
[2020-07-06] MEDS: *HR* Enoxaparin 40 MG/0.4 ML SYRINGE SQ SCH (06:08)
[2020-07-06 06:58] VITALS: BP 145/58
[2020-07-06] MEDS: Budesonide/Formoterol 160/4.5 1 PUFF INH IH SCH (08:09)
[2020-07-06] MEDS: rOPINIRole 1 MG TABLET PO SCH (08:23)
[2020-07-06] MEDS: tiZANidine 4 MG TABLET PO SCH (08:23)
[2020-07-06] MEDS: Ascorbic Acid 500 MG TABLET PO SCH (08:23)
[2020-07-06] MEDS: MethylPREDNISolone 40 MG/ML VIAL IVP SCH ×2 (08:23→16:22)
[2020-07-06] MEDS: Multivit/Ca/Min/Fe/FA 1 TAB TABLET PO SCH (08:23)
[2020-07-06] MEDS: Aspirin Enteric Coated 81 MG Tablet PO SCH (08:23)
[2020-07-06] MEDS: Insulin LISPRO 300 UNITS/3 ML VIAL SUBQ SCH ×2 (08:24→12:02)
[2020-07-06] MEDS: Furosemide 20 MG/2 ML VIAL IVP SCH (08:24)
== END 2020-07-06 17:03 | disposition home or self-care (01) | DRG 469 ==
LOC: 3NENU → EDSTATUS 07-02 07:45
PROVIDERS: ADMIT Orthopaedic Surgery; ATTEND Orthopaedic Surgery